=== PATIENT | female | born 1975 | race Caucasian/White ===

== ENCOUNTER 2017-11-17 11:55 | Emergency (ER) | payer BC ==
[2017-11-17] MEDS ORDERED: MORPHINE SULFATE 4 MG/ML DISP.SYRIN. IV/SQ ×2 (12:15)
[2017-11-17 12:17] LABS: URINE HCG POC HCG NEGATIVE (Negative)
[2017-11-17 12:26] LABS: ADD MAN DIFF? YES; BASO # 0.1 x10^3/uL (0.0-0.2); BASO % 1 % (0-3); EOS % 0 % (0-3); HEMATOCRIT 39.8 % (36.0-47.0); HEMOGLOBIN 13.7 g/dL (12.0-15.5); LYMPH # 2.3 x10^3/uL (1.0-4.8); LYMPH % 18 % (24-48); MEAN CORPUSCULAR HEMOGLOBIN 30 pg (25-35); MEAN CORPUSCULAR HGB CONC 34 g/dL (31-37); MEAN CORPUSCULAR VOLUME 88 fL (79-100); MONO % 15 % (0-9); NEUT # 8.4 x10^3uL (1.8-7.7); NEUT % 66 % (31-73); PLATELET COUNT 301 x10^3/uL (140-400); RED BLOOD COUNT 4.55 x10^6/uL (3.50-5.40); RED CELL DISTRIBUTION WIDTH 14.4 % (11.5-14.5); WHITE BLOOD COUNT 12.9 x10^3/uL (4.0-11.0)
[2017-11-17 12:27] LABS: BILIRUBIN,URINE NEGATIVE (NEG); CLARITY,URINE CLOUDY; COLOR,URINE YELLOW; GLUCOSE,URINE NEGATIVE (NEG); NITRITE,URINE NEGATIVE (NEG); PROTEIN,URINE 100 mg/dL (NEG-TRACE)
[2017-11-17] MEDS ORDERED: KETOROLAC 15 MG/ML VIAL. IV ×2 (12:30)
[2017-11-17 12:33] LABS: ANION GAP 9 (6-14); BLOOD UREA NITROGEN 7 mg/dL (7-20); BUN/CREATININE RATIO 9 (6-20); CALCIUM 10.4 mg/dL (8.5-10.1); CARBON DIOXIDE 26 mmol/L (21-32); CHLORIDE 102 mmol/L (98-107); CREATININE 0.8 mg/dL (0.6-1.0); GFR 79.4; GLUCOSE 115 mg/dL (70-99); POTASSIUM 3.6 mmol/L (3.5-5.1); SODIUM 137 mmol/L (136-145)
[2017-11-17 12:38] LABS: ALK PHOS 108 U/L (46-116); ALT (SGPT) 37 U/L (14-59); AST (SGOT) 19 U/L (15-37); TOTAL BILIRUBIN 0.8 mg/dL (0.2-1.0); TOTAL PROTEIN 7.9 g/dL (6.4-8.2)
[2017-11-17] MEDS: IV NORMAL SALINE 1000ML BAG 1,000 ML IV ×2 (12:38)
[2017-11-17] MEDS: PROCHLORPERAZINE 10 MG/2 ML VIAL. IV ×2 (12:39)
[2017-11-17] MEDS: KETOROLAC 30 MG/ML INJ. IV ×2 (12:40)
[2017-11-17 12:45] LABS: BACTERIA,URINE FEW /HPF (0-FEW); SQUAMOUS EPITHELIAL CELL,UR FEW /LPF; WBC,URINE >40 /HPF (0-4)
[2017-11-17 13:13] LABS: % BANDS 1 % (0-9); % LYMPHS 18 % (24-48); % MONOS 15 % (0-10); % SEGS 66 % (35-66); PLT ESTIMATE ADEQUATE (ADEQUATE)
[2017-11-17] MEDS ORDERED: cefTRIAXone SODIUM 2 GM in IV DEXTROSE 5% 100ML 100 ML IV (14:00)
[2017-11-17] MEDS ORDERED: cefTRIAXone IM 1 GM VIAL IM ×2 (14:40)
[2017-11-17] MEDS: cefTRIAXone IV Push 1 GM VIAL. IVP ×2 (14:47)
== END 2017-11-17 14:54 | disposition home or self-care (01) ==
LOC: ER 11:55
DX: N13.2 Hydronephrosis with renal and ureteral calculous obstruction (principal); N39.0 Urinary tract infection, site not specified (principal); N20.1 Calculus of ureter; Z98.890 Other specified postprocedural states; Z88.5 Allergy status to narcotic agent; Z88.1 Allergy status to other antibiotic agents; Z88.8 Allergy status to other drugs, medicaments and biological substances
CPT/HCPCS: 36415; 74176; 80053; 81001; 81025; 85007; 85025; 87086; 87186; 96365; 96375; 96376; 99285-25; J0690; J0696; J0780; J1885; J7030

== ENCOUNTER 2019-12-18 21:57 | Inpatient (IN) | payer BC ==
[~2019-12-18] VITALS: Ht 162.6 cm; Wt 136.4 kg
[~2019-12-18 21:57] MED LIST: CIPR500T PO; OXYC1TAB15 PO; PROM25TA10 PO
[2019-12-18 22:42] LABS: BILIRUBIN,URINE NEGATIVE (NEG); CLARITY,URINE CLEAR; COLOR,URINE YELLOW; NITRITE,URINE NEGATIVE (NEG); PROTEIN,URINE NEGATIVE (NEG-TRACE)
[2019-12-18 22:52] LABS: SQUAMOUS EPITHELIAL CELL,UR MANY /LPF
[2019-12-18 22:53] LABS: BACTERIA,URINE MANY /HPF (0-FEW)
--- NOTE | 2019-12-18 23:17 | PHYS DOC ---
Past Medical History Past Medical History: Kidney Stone Past Surgical History: Additional Past Surgical Histo: ULNER NERVE IN RIGHT ARM Smoking Status: Never Smoker Alcohol Use: None Drug Use: None General Adult EDM: Chief Complaint: FLANK PAIN HPI: HPI: The history was obtained from the patient. Patient is a 44-year-old female with PMH kidney stone who presents with a chief complaint of right flank pain. Patient states she had sudden onset right flank pain that occurred approximately 20 hours ago. She states she was sleeping when the pain occurred. She notes a couple of weeks ago she was valuated by her primary care physician. States labs were obtained and were grossly remarkable. She states she started on a anti- inflammatory for potential muscle strain. She notes the pain did gradually improve however it returned tonight. She has a history of kidney stone 2 years ago that did not require intervention. She does note increased urinary frequency. Denies any hematuria or dysuria. Denies nausea or vomiting. Has tolerated food today without difficulty. Denies any fevers. Denies syncope. Denies vaginal bleeding or discharge. Notes sometimes the pain involves her right upper quadrant. Has a history of gallbladder issues. Denies cough, shortness of breath, or fever. Denies any chest pain. Patient denies any urinary retention, stool incontinence, saddle anesthesia, history of IV drug use, or history of cancer. Review of Systems: Review of Systems: Constitutional: Denies fever or chills. [] Eyes: Denies change in visual acuity. [] HENT: Denies nasal congestion or sore throat. [] Respiratory: Denies cough or shortness of breath. [] Cardiovascular: Denies chest pain or edema. [] GI: Denies abdominal pain, nausea, vomiting, bloody stools or diarrhea. [] : Denies dysuria. [] Musculoskeletal: Positive for flank pain Integument: Denies rash. [] Neurologic: Denies headache, focal weakness or sensory changes. [] Endocrine: Denies polyuria or polydipsia. [] Lymphatic: Denies swollen glands. [] Psychiatric: Denies depression or anxiety. [] Heart Score: Risk Factors: Risk Factors: DM, Current or recent (<one month) smoker, HTN, HLP, family history of CAD, obesity. Risk Scores: Score 0 - 3: 2.5% MACE over next 6 weeks - Discharge Home Score 4 - 6: 20.3% MACE over next 6 weeks - Admit for Clinical Observation Score 7 - 10: 72.7% MACE over next 6 weeks - Early Invasive Strategies Allergies: Allergies: Allergies Coded Allergies Type Severity Reaction Last Updated Verified I S O L A T I O N *CONTACT* Allergy Unknown 11/20/17 Yes benzonatate Allergy Unknown 11/17/17 Yes clarithromycin Allergy Unknown 11/17/17 Yes erythromycin base Allergy Unknown 11/17/17 Yes ondansetron Allergy Unknown 11/17/17 Yes codeine Adverse Reaction Intermediate FEELS LIKE SHE IS ON SPEED 11/17/17 Yes Physical Exam: PE: Constitutional: Well developed, well nourished, no acute distress, non-toxic appearance. [] HENT: Normocephalic, atraumatic, bilateral external ears normal, oropharynx moist, no oral exudates, nose normal. [] Eyes: PERRLA, EOMI, conjunctiva normal, no discharge. [] Neck: Normal range of motion, no tenderness, supple, no stridor. [] Cardiovascular:Heart rate regular rhythm, no murmur [] Lungs & Thorax: Bilateral breath sounds clear to auscultation [] Abdomen: Mild right CVA tenderness. No involuntary guarding or rigidity noted. No acute peritonitis on abdominal exam. Skin: Warm, dry, no erythema, no rash. [] Back: No tenderness, no CVA tenderness. [] Extremities: No tenderness, no cyanosis, no clubbing, ROM intact, no edema. [] Neurologic: Alert and oriented X 3, normal motor function, normal sensory function, no focal deficits noted. [] Psychologic: Affect normal, judgement normal, mood normal. [] Current Patient Data: Labs: Laboratory Tests Test 12/18/19 22:20 12/18/19 22:35 Urine Collection Type Unknown Urine Color Yellow Urine Clarity Clear Urine pH 6.0 (<5.0-8.0) Urine Specific [place] 1.025 (1.000-1.030) Urine Protein Negative mg/dL (NEG-TRACE) Urine Glucose (UA) Negative mg/dL (NEG) Urine Ketones (Stick) Negative mg/dL (NEG) Urine Blood Negative (NEG) Urine Nitrite Negative (NEG) Urine Bilirubin Negative (NEG) Urine Urobilinogen Dipstick 1.0 mg/dL (0.2 mg/dL) Urine Leukocyte Esterase Negative (NEG) Urine RBC 3-5 /HPF (0-2) Urine WBC 1-4 /HPF (0-4) Urine Squamous Epithelial Cells Many /LPF Urine Bacteria Many /HPF (0-FEW) Urine Mucus Marked /LPF POC Urine HCG, Qualitative Hcg negative (Negative) Vital Signs: Vital Signs Date Time Temp Pulse Resp B/P (MAP) Pulse Ox O2 Delivery O2 Flow Rate FiO2 12/18/19 22:50 98.0 89 18 139/87 (104) 95 Room Air 98.0 EKG: EKG: [] Radiology/Procedures: Radiology/Procedures: [] [address] [place], [place] [id number] IMAGING REPORT Signed PATIENT: JEAN CARLOS VAUGHAN ACCOUNT: [id number] : 1975 LOCATION: ER AGE: 44 SEX: F EXAM STATUS: REG ER ORD. PHYSICIAN: DEBORAH MORFIN DO REASON: R flank pain. eval for kidney stone PROCEDURE: CT ABDOMEN PELVIS WO CONTRAST Study: CT abdomen/pelvis without intravenous contrast Indication: Right flank pain. Comparison: 11/17/2017 Technique: Helical CT imaging performed of the abdomen and pelvis without the use of intravenous contrast. Sagittal and coronal reformats were obtained. One or more of the following individualized dose reduction techniques were utilized for this examination: 1. Automated exposure control 2. Adjustment of the mA and/or kV according to patient size 3. Use of iterative reconstruction technique. Findings: Inherently limited evaluation without intravenous contrast. Chest: Unchanged nodular focus at the subpleural right lower lobe on image 1 series 2. Stability over time is compatible with a benign process. No dedicated follow-up is needed. Liver: Marked hepatic steatosis with some areas of relative fatty sparing. Gallbladder/Biliary Tree: Within normal limits. Pancreas: Unremarkable. Spleen: Within normal limits for size. Adrenal Glands: Unchanged. Kidneys/Ureters/Bladder: No collecting system dilatation on either side. No stone is seen. Reproductive Organs: Within the broad range of normal for patient age to include a left ovarian cystic focus, image 182 series 2, measuring up to 3.3 cm. Colon: Unremarkable. Appendix: The distal portion of the appendix is at the upper limits of normal for transverse dimension, image 197 series 2, but there are no findings to suggest acute appendicitis and gas is seen within the proximal appendiceal lumen. Small Bowel: Unremarkable. Stomach: Unremarkable. Vasculature: Unremarkable. Lymph Nodes: Unchanged minimally prominent precaval lymph node. No suspicious lymph nodes based on size or interval change. Peritoneum and Body Wall: No free fluid or gas. Bones: No acute or aggressive osseous process. Lower lumbar facet degeneration. Miscellaneous: None. Impression: 1. No acute abnormality seen throughout the abdomen or pelvis. Namely, no nephrolithiasis or collecting system dilatation. 2. Hepatic steatosis and additional chronic findings as above. Electronically signed by: PRADEEP CASAREZ MD (12/19/2019 12:33 AM) [id number] DICTATED and SIGNED BY: PRADEEP CASAREZ MD DATE: 12/19/19 0033 Course & Med Decision Making: Course & Med Decision Making Pertinent Labs and Imaging studies reviewed. (See chart for details) Patient is uncomfortable appearing 44-year-old female presents with chief complaint of right flank pain. Initial vital signs grossly unremarkable. CBC does show significant leukocytosis of approximately 25,000. Lactate normal. CT imaging grossly remarkable. Of note radiology did mention the distal tip of the appendix is at the upper limits of normal. However no secondary findings of acute appendicitis. Repeat examination she still has some discomfort. At this time the exact cause of her leukocytosis is unexplained. Urinalysis did show minimal signs of infection. She will be treated with Rocephin. Blood cultures and urine cultures are pending. I do feel she would benefit from observation for serial abdominal exams given her abnormal leukocytosis. Patient is agreeable to this. She has remained stable in the emergency department. Her repeat abdominal exam while in the emergency department reveals no rigidity or peritonitis. Dragon Disclaimer: Dragon Disclaimer: This electronic medical record was generated, in whole or in part, using a voice recognition dictation system. Departure Departure Impression: Primary Impression: Intractable abdominal pain Additional Impressions: Leukocytosis Qualified Codes: D72.829 - Elevated white blood cell count, unspecified Bacteria in urine Disposition: ADMITTED INPATIENT Condition: STABLE Referrals: DELIO BABCOCK (PCP) Justicifation of Admission Dx: Justifications for Admission: Justification of Admission Dx: Yes Comments: intractable abdominal pain ,leukocytosis, bacturia DEBORAH MORFIN DO Dec 18, 2019 23:17
[2019-12-18] MEDS ORDERED: MORPHINE SULFATE 4 MG/ML VIAL. IV ONE (23:45)
[2019-12-18] MEDS ORDERED: METOCLOPRAMIDE HCL 10 MG/2 ML VIAL. IVP ONE (23:45)
[2019-12-18 23:53] LABS: BASO # 0.1 x10^3/uL (0.0-0.2); BASO % 1 % (0-3); EOS % 0 % (0-3); HEMATOCRIT 40.5 % (36.0-47.0); HEMOGLOBIN 13.6 g/dL (12.0-15.5); LYMPH # 2.7 x10^3/uL (1.0-4.8); LYMPH % 11 % (24-48); MEAN CORPUSCULAR HEMOGLOBIN 30 pg (25-35); MEAN CORPUSCULAR HGB CONC 34 g/dL (31-37); MEAN CORPUSCULAR VOLUME 88 fL (79-100); MONO % 16 % (0-9); NEUT # 18.6 x10^3/uL (1.8-7.7); NEUT % 73 % (31-73); PLATELET COUNT 164 x10^3/uL (140-400); RED BLOOD COUNT 4.62 x10^6/uL (3.50-5.40); RED CELL DISTRIBUTION WIDTH 14.4 % (11.5-14.5); WHITE BLOOD COUNT 25.4 x10^3/uL (4.0-11.0)
[2019-12-19 00:07] LABS: CALCIUM 10.3 mg/dL (8.5-10.1); CREATININE 0.7 mg/dL (0.6-1.0); GFR 91.8; POTASSIUM 3.6 mmol/L (3.5-5.1)
[2019-12-19 00:09] LABS: ALBUMIN 4.1 g/dL (3.4-5.0); ALBUMIN/GLOBULIN RATIO 1.2 (1.0-1.7); TOTAL BILIRUBIN 0.7 mg/dL (0.2-1.0); TOTAL PROTEIN 7.6 g/dL (6.4-8.2)
--- NOTE | 2019-12-19 00:35 | RAD ---
Study: CT abdomen/pelvis without intravenous contrast Indication: Right flank pain. Comparison: 11/17/2017 Technique: Helical CT imaging performed of the abdomen and pelvis without the use of intravenous contrast. Sagittal and coronal reformats were obtained. One or more of the following individualized dose reduction techniques were utilized for this examination: 1. Automated exposure control 2. Adjustment of the mA and/or kV according to patient size 3. Use of iterative reconstruction technique. Findings: Inherently limited evaluation without intravenous contrast. Chest: Unchanged nodular focus at the subpleural right lower lobe on image 1 series 2. Stability over time is compatible with a benign process. No dedicated follow-up is needed. Liver: Marked hepatic steatosis with some areas of relative fatty sparing. Gallbladder/Biliary Tree: Within normal limits. Pancreas: Unremarkable. Spleen: Within normal limits for size. Adrenal Glands: Unchanged. Kidneys/Ureters/Bladder: No collecting system dilatation on either side. No stone is seen. Reproductive Organs: Within the broad range of normal for patient age to include a left ovarian cystic focus, image 182 series 2, measuring up to 3.3 cm. Colon: Unremarkable. Appendix: The distal portion of the appendix is at the upper limits of normal for transverse dimension, image 197 series 2, but there are no findings to suggest acute appendicitis and gas is seen within the proximal appendiceal lumen. Small Bowel: Unremarkable. Stomach: Unremarkable. Vasculature: Unremarkable. Lymph Nodes: Unchanged minimally prominent precaval lymph node. No suspicious lymph nodes based on size or interval change. Peritoneum and Body Wall: No free fluid or gas. Bones: No acute or aggressive osseous process. Lower lumbar facet degeneration. Miscellaneous: None. Impression: 1. No acute abnormality seen throughout the abdomen or pelvis. Namely, no nephrolithiasis or collecting system dilatation. 2. Hepatic steatosis and additional chronic findings as above. Electronically signed by: PRADEEP CASAREZ MD (12/19/2019 12:33 AM) [id number]
[2019-12-19] MEDS ORDERED: IV RINGERS,LACTATED 1000ML 1,000 ML IV ONE (01:00)
[2019-12-19] MEDS ORDERED: cefTRIAXone IV Push 1 GM VIAL. IVP ONE (02:30)
[2019-12-19 05:49] LABS: % BANDS 21 % (0-9); % EOS 1 % (0-5); % LYMPHS 12 % (24-48); % MONOS 17 % (0-10); % SEGS 49 % (35-66)
[2019-12-19 05:50] LABS: PLT ESTIMATE ADEQUATE (ADEQUATE)
[2019-12-19] MEDS: IV RINGERS,LACTATED 1000ML 1,000 ML IV SCH ×5 (08:40→22:01)
[2019-12-19] MEDS: MORPHINE SULFATE 4 MG/ML VIAL. IV PRN ×5 (08:52→21:59)
--- NOTE | 2019-12-19 10:56 | PDOC2 ---
CONSULT Date of Consult Date of Consult DATE: 12/19/19 TIME: 10:53 History of Present Illness Reason for Visit: The patient is a 44-year-old female who reported to the emergency department with right flank and back pain with some radiation to the abdomen. This started yesterday and is described as stabbing in nature. She had a similar episode of this a month ago without a clear etiology. She denies any nausea or vomiting and the pain has remained persistent. Past Medical History Past Medical History Asthma, allergies, morbid obesity Past Surgical History Past Surgical History x2, ulnar nerve surgery Social History No ALCOHOL: rare Current Problem List Problem List Problems Medical Problems: (1) Bacteria in urine Status: Acute (2) Intractable abdominal pain Status: Acute (3) Leukocytosis Status: Acute Current Medications Current Medications Current Medications Metoclopramide HCl (Reglan Vial) 10 mg 1X ONCE IVP Last administered on 12/18/19at 23:51; Start 12/18/19 at 23:45; Stop 12/18/19 at 23:46; Status DC Morphine Sulfate (Morphine Sulfate) 4 mg 1X ONCE IV Last administered on 12/18/19at 23:51; Start 12/18/19 at 23:45; Stop 12/18/19 at 23:46; Status DC Ringer's Solution 1,000 ml @ 1,000 mls/hr 1X ONCE IV Last administered on 12/19/19at 01:46; Start 12/19/19 at 01:00; Stop 12/19/19 at 01:59; Status DC Ringer's Solution 1,000 ml @ 150 mls/hr Q6H40M IV Last administered on 12/19/19at 08:47; Start 12/19/19 at 02:00; Stop 12/20/19 at 01:59 Ceftriaxone Sodium (Rocephin) 1 gm 1X ONCE IVP Last administered on 12/19/19at 03:05; Start 12/19/19 at 02:30; Stop 12/19/19 at 02:31; Status DC Morphine Sulfate (Morphine Sulfate) 4 mg PRN Q2HR PRN IV SEVERE PAIN 7-10 Last administered on 12/19/19at 08:52; Start 12/19/19 at 02:15; Stop 12/20/19 at 02:14 Metoclopramide HCl (Reglan Vial) 10 mg TID PRN PRN IVP NAUSEA/VOMITING; Start 12/19/19 at 02:15 Active Scripts Active Percocet 5-325 Mg Tablet (Oxycodone/Acetaminophen) 1 Each Tablet 1-2 Each PO Q6HRS PRN pain Promethazine Hcl 25 Mg Tablet 1 Tab PO PRN Q6HRS PRN Ciprofloxacin Hcl 500 Mg Tablet 1 Tab PO BID Allergies Allergies: Coded Allergies: I S O L A T I O N *CONTACT* (Verified Allergy, Unknown, 11/20/17) ESBL benzonatate (Verified Allergy, Unknown, 11/17/17) clarithromycin (Verified Allergy, Unknown, 11/17/17) erythromycin base (Verified Allergy, Unknown, 11/17/17) ondansetron (Verified Allergy, Unknown, 11/17/17) codeine (Verified Adverse Reaction, Intermediate, FEELS LIKE SHE IS ON SPEED, 11/17/17) ROS General: No: Chills, Night Sweats, Fatigue, Malaise, Appetite, Other PSYCHOLOGICAL ROS: No: Anxiety, Behavioral Disorder, Concentration difficultie, Decreased libido, Depression, Disorientation, Hallucinations, Hostility, Irritablity, Memory difficulties, Mood Swings, Obsessive thoughts, Physical abuse, Sexual abuse, Sleep disturbances, Suicidal ideation, Other Eyes: No Blurry vision, No Decreased vision, No Double vision, No Dry eyes, No Excessive tearing, No Eye Pain, No Itchy Eyes, No Loss of vision, No Photophobia, No Scotomata, No Uses contacts, No Uses glasses, No Other HEENT: No: Heacaches, Visual Changes, Hearing change, Nasal congestion, Nasal discharge, Oral lesions, Sinus pain, Sore Throat, Epistaxis, Sneezing, Snoring, Tinnitus, Vertigo, Vocal changes, Other ALLERGY AND IMMUNOLOGY: No: Hives, Insect Bite Sensitivity, Itchy/Watery Eyes, Nasal Congestion, Post Nasal Drip, Seasonal Allergies, Other ENDOCRINE: No: Breast Changes, Galactorrhea, Hair Pattern Changes, Hot Flashes, Malaise/lethargy, Mood Swings, Palpitations, Polydipsia/polyuria, Skin Changes, Temperature Intolerance, Unexpected Weight Changes, Other Respiratory: No: Cough, Hemoptysis, Orthopnea, Pleuritic Pain, Shortness of breath, SOB with excertion, Sputum Changes, Stridor, Tachypnea, Wheezing, Other Cardiovascular: No Chest Pain, No Palpitations, No Orthopnea, No Paroxysmal Noc. Dyspnea, No Edema, No Lt Headedness, No Other Genitourinary: No Dysuria, No Frequency, No Incontinence, No Hematuria, No Retention, No Discharge, No Urgency, No Pain, No Flank Pain, No Other, No , No , No , No , No , No , No Musculoskeletal: No Gait Disturbance, No Joint Pain, No Joint Stiffness, No Joint Swelling, No Muscle Pain, No Muscular Weakness, No Pain In:, No Swelling In:, No Other Neurological: No Behavorial Changes, No Bowel/Bladder ControlChng, No Confusion, No Dizziness, No Gait Disturbance, No Headaches, No Impaired Coord/balance, No Memory Loss, No Numbness/Tingling, No Seizures, No Speech Problems, No Tremors, No Visual Changes, No Weakness, No Other Skin: No Dry Skin, No Eczema, No Hair Changes, No Lumps, No Mole Changes, No Mottling, No Nail Changes, No Pruritus, No Rash, No Skin Lesion Changes, No Other, No Acne Physical Exam General: Alert, Oriented X3, Cooperative HEENT: Atraumatic Lungs: Clear to auscultation Abdomen: Soft (morbidly obese, tenderness in the right lower quadrant without guarding) Extremities: No clubbing, No cyanosis Neuro: Normal speech Psych/Mental Status: Mental status NL Vitals VITALS Vital Signs Date Time Temp Pulse Resp B/P (MAP) Pulse Ox O2 Delivery O2 Flow Rate FiO2 12/19/19 09:33 95 Room Air 12/19/19 06:09 78 12 150/73 (98) 12/18/19 22:50 98.0 98.0 Labs Labs Laboratory Tests Test 12/18/19 22:20 12/18/19 22:35 12/18/19 23:40 12/19/19 01:20 Urine Collection Type Unknown Urine Color Yellow Urine Clarity Clear Urine pH 6.0 (<5.0-8.0) Urine Specific [place] 1.025 (1.000-1.030) Urine Protein Negative mg/dL (NEG-TRACE) Urine Glucose (UA) Negative mg/dL (NEG) Urine Ketones (Stick) Negative mg/dL (NEG) Urine Blood Negative (NEG) Urine Nitrite Negative (NEG) Urine Bilirubin Negative (NEG) Urine Urobilinogen Dipstick 1.0 mg/dL (0.2 mg/dL) Urine Leukocyte Esterase Negative (NEG) Urine RBC 3-5 /HPF (0-2) Urine WBC 1-4 /HPF (0-4) Urine Squamous Epithelial Cells Many /LPF Urine Bacteria Many /HPF (0-FEW) Urine Mucus Marked /LPF Bedside Urine HCG, Qualitative Hcg negative (Negative) White Blood Count 25.4 x10^3/uL (4.0-11.0) Red Blood Count 4.62 x10^6/uL (3.50-5.40) Hemoglobin 13.6 g/dL (12.0-15.5) Hematocrit 40.5 % (36.0-47.0) Mean Corpuscular Volume 88 fL (79-100) Mean Corpuscular Hemoglobin 30 pg (25-35) Mean Corpuscular Hemoglobin Concent 34 g/dL (31-37) Red Cell Distribution Width 14.4 % (11.5-14.5) Platelet Count 164 x10^3/uL (140-400) Neutrophils (%) (Auto) 73 % (31-73) Lymphocytes (%) (Auto) 11 % (24-48) Monocytes (%) (Auto) 16 % (0-9) Eosinophils (%) (Auto) 0 % (0-3) Basophils (%) (Auto) 1 % (0-3) Neutrophils # (Auto) 18.6 x10^3/uL (1.8-7.7) Lymphocytes # (Auto) 2.7 x10^3/uL (1.0-4.8) Monocytes # (Auto) 4.0 x10^3/uL (0.0-1.1) Eosinophils # (Auto) 0.0 x10^3/uL (0.0-0.7) Basophils # (Auto) 0.1 x10^3/uL (0.0-0.2) Segmented Neutrophils % 49 % (35-66) Band Neutrophils % 21 % (0-9) Lymphocytes % 12 % (24-48) Monocytes % 17 % (0-10) Eosinophils % 1 % (0-5) Platelet Estimate Adequate (ADEQUATE) Sodium Level 137 mmol/L (136-145) Potassium Level 3.6 mmol/L (3.5-5.1) Chloride Level 104 mmol/L (98-107) Carbon Dioxide Level 25 mmol/L (21-32) Anion Gap 8 (6-14) Blood Urea Nitrogen 9 mg/dL (7-20) Creatinine 0.7 mg/dL (0.6-1.0) Estimated GFR (Cockcroft-Gault) 91.8 BUN/Creatinine Ratio 13 (6-20) Glucose Level 101 mg/dL (70-99) Calcium Level 10.3 mg/dL (8.5-10.1) Total Bilirubin 0.7 mg/dL (0.2-1.0) Aspartate Amino Transf (AST/SGOT) 45 U/L (15-37) Alanine Aminotransferase (ALT/SGPT) 42 U/L (14-59) Alkaline Phosphatase 106 U/L (46-116) Total Protein 7.6 g/dL (6.4-8.2) Albumin 4.1 g/dL (3.4-5.0) Albumin/Globulin Ratio 1.2 (1.0-1.7) Lipase 141 U/L (73-393) Lactic Acid Level 0.9 mmol/L (0.4-2.0) Laboratory Tests Test 12/18/19 22:20 12/18/19 22:35 12/18/19 23:40 12/19/19 01:20 Urine Collection Type Unknown Urine Color Yellow Urine Clarity Clear Urine pH 6.0 (<5.0-8.0) Urine Specific [place] 1.025 (1.000-1.030) Urine Protein Negative mg/dL (NEG-TRACE) Urine Glucose (UA) Negative mg/dL (NEG) Urine Ketones (Stick) Negative mg/dL (NEG) Urine Blood Negative (NEG) Urine Nitrite Negative (NEG) Urine Bilirubin Negative (NEG) Urine Urobilinogen Dipstick 1.0 mg/dL (0.2 mg/dL) Urine Leukocyte Esterase Negative (NEG) Urine RBC 3-5 /HPF (0-2) Urine WBC 1-4 /HPF (0-4) Urine Squamous Epithelial Cells Many /LPF Urine Bacteria Many /HPF (0-FEW) Urine Mucus Marked /LPF Bedside Urine HCG, Qualitative Hcg negative (Negative) White Blood Count 25.4 x10^3/uL (4.0-11.0) Red Blood Count 4.62 x10^6/uL (3.50-5.40) Hemoglobin 13.6 g/dL (12.0-15.5) Hematocrit 40.5 % (36.0-47.0) Mean Corpuscular Volume 88 fL (79-100) Mean Corpuscular Hemoglobin 30 pg (25-35) Mean Corpuscular Hemoglobin Concent 34 g/dL (31-37) Red Cell Distribution Width 14.4 % (11.5-14.5) Platelet Count 164 x10^3/uL (140-400) Neutrophils (%) (Auto) 73 % (31-73) Lymphocytes (%) (Auto) 11 % (24-48) Monocytes (%) (Auto) 16 % (0-9) Eosinophils (%) (Auto) 0 % (0-3) Basophils (%) (Auto) 1 % (0-3) Neutrophils # (Auto) 18.6 x10^3/uL (1.8-7.7) Lymphocytes # (Auto) 2.7 x10^3/uL (1.0-4.8) Monocytes # (Auto) 4.0 x10^3/uL (0.0-1.1) Eosinophils # (Auto) 0.0 x10^3/uL (0.0-0.7) Basophils # (Auto) 0.1 x10^3/uL (0.0-0.2) Segmented Neutrophils % 49 % (35-66) Band Neutrophils % 21 % (0-9) Lymphocytes % 12 % (24-48) Monocytes % 17 % (0-10) Eosinophils % 1 % (0-5) Platelet Estimate Adequate (ADEQUATE) Sodium Level 137 mmol/L (136-145) Potassium Level 3.6 mmol/L (3.5-5.1) Chloride Level 104 mmol/L (98-107) Carbon Dioxide Level 25 mmol/L (21-32) Anion Gap 8 (6-14) Blood Urea Nitrogen 9 mg/dL (7-20) Creatinine 0.7 mg/dL (0.6-1.0) Estimated GFR (Cockcroft-Gault) 91.8 BUN/Creatinine Ratio 13 (6-20) Glucose Level 101 mg/dL (70-99) Calcium Level 10.3 mg/dL (8.5-10.1) Total Bilirubin 0.7 mg/dL (0.2-1.0) Aspartate Amino Transf (AST/SGOT) 45 U/L (15-37) Alanine Aminotransferase (ALT/SGPT) 42 U/L (14-59) Alkaline Phosphatase 106 U/L (46-116) Total Protein 7.6 g/dL (6.4-8.2) Albumin 4.1 g/dL (3.4-5.0) Albumin/Globulin Ratio 1.2 (1.0-1.7) Lipase 141 U/L (73-393) Lactic Acid Level 0.9 mmol/L (0.4-2.0) Images Images CT abdomen/pelvis Impression: 1. No acute abnormality seen throughout the abdomen or pelvis. Namely, no nephrolithiasis or collecting system dilatation. 2. Hepatic steatosis and additional chronic findings as above. Assessment/Plan Assessment/Plan RLQ flank/back/abdominal pain, leukocytosis, etiology unclear. I have reviewed her CT and appendicitis would be unlikely. No other inflammatory process identified. Plan for serial exams, labs, pain control; could consider GI consult if pain persists. YASHIRA MERCHANT MD Dec 19, 2019 10:56
[2019-12-19 11:00] VITALS: BP 133/68
--- NOTE | 2019-12-19 12:49 | PDOC1 ---
History and Physical Date of Service: DOS: DATE: 12/19/19 TIME: 12:37 Chief Complaint: Chief Complain: Abdominal pain History of Present Illness: HPI: Patient is a 44-year-old female with past medical history of kidney stone 1 year ago and who has had 8 miscarriages and 2 and D&Cs in the past who comes with complaints of right flank pain. She has been dealing with this for about a month but it has worsened the last couple of days. She describes the pain as sharp in nature that starts in her lower back and will radiate straight to her right lower quadrant of her abdomen. She denies nausea vomiting or changes in her bowel habits from this pain. She was started on muscle relaxants for possible concern of muscle strain. However, she does not state that this helps her pain. She has had one episode of a kidney stone that was passed in the past 1 year ago. However, the stone was never analyzed. Patient denies any hematuria, fevers, syncope, chest pain, vaginal bleeding or discharge, or recent risky sexual behavior. Past Medical/Surgical History: PMH/PSH: Past Medical History: Kidney Stone Past Surgical History: , 8 misarriages and 2 DNC, ULNER NERVE IN RIGHT ARM Allergies: Allergies: Coded Allergies: I S O L A T I O N *CONTACT* (Verified Allergy, Unknown, 11/20/17) ESBL benzonatate (Verified Allergy, Unknown, 11/17/17) clarithromycin (Verified Allergy, Unknown, 11/17/17) erythromycin base (Verified Allergy, Unknown, 11/17/17) ondansetron (Verified Allergy, Unknown, 11/17/17) codeine (Verified Adverse Reaction, Intermediate, FEELS LIKE SHE IS ON SPEED, 11/17/17) Family History: Family History: Reviewed and none reported. No family history of kidney stones. Social History: Social History: Denies alcohol, drug or tobacco abuse Current Medications: Current Medications Current Medications Metoclopramide HCl (Reglan Vial) 10 mg 1X ONCE IVP Last administered on 12/18/19at 23:51; Start 12/18/19 at 23:45; Stop 12/18/19 at 23:46; Status DC Morphine Sulfate (Morphine Sulfate) 4 mg 1X ONCE IV Last administered on at 23:51; Start 12/18/19 at 23:45; Stop 12/18/19 at 23:46; Status DC Ringer's Solution 1,000 ml @ 1,000 mls/hr 1X ONCE IV Last administered on 12/19/19at 01:46; Start 12/19/19 at 01:00; Stop 12/19/19 at 01:59; Status DC Ringer's Solution 1,000 ml @ 150 mls/hr Q6H40M IV Last administered on 12/19/19at 08:40; Start 12/19/19 at 02:00; Stop 12/20/19 at 01:59 Ceftriaxone Sodium (Rocephin) 1 gm 1X ONCE IVP Last administered on 12/19/19at 03:05; Start 12/19/19 at 02:30; Stop 12/19/19 at 02:31; Status DC Morphine Sulfate (Morphine Sulfate) 4 mg PRN Q2HR PRN IV SEVERE PAIN 7-10 Last administered on 12/19/19at 12:11; Start 12/19/19 at 02:15; Stop 12/20/19 at 02:14 Metoclopramide HCl (Reglan Vial) 10 mg TID PRN PRN IVP NAUSEA/VOMITING; Start 12/19/19 at 02:15 Active Scripts Active Percocet 5-325 Mg Tablet (Oxycodone/Acetaminophen) 1 Each Tablet 1-2 Each PO Q6HRS PRN pain Promethazine Hcl 25 Mg Tablet 1 Tab PO PRN Q6HRS PRN Ciprofloxacin Hcl 500 Mg Tablet 1 Tab PO BID ROS: Review of Systems Review of System REVIEW OF SYSTEMS: GENERAL: Denies weakness SKIN: No bruising, hair changes or rashes. EYES: No blurred, double or loss of vision. NOSE AND THROAT: No history of nosebleeds, hoarseness or sore throat. HEART: No history of palpitations, chest pain or shortness of breath on exertion. LUNGS: Denies cough, hemoptysis, wheezing or shortness of breath. GASTROINTESTINAL: Denies changes in appetite, nausea, vomiting, diarrhea or constipation. GENITOURINARY: No history of frequency, urgency, hesitancy or nocturia. NEUROLOGIC: Denies history of numbness, tingling, or tremor. PSYCHIATRIC: No history of panic, anxiety or depression. ENDOCRINE: No history of heat or cold intolerance, polyuria or polydipsia. EXTREMITIES: Denies joint pain, pain on walking or stiffness. Physical Exam: Vital Signs: Vital Signs Date Time Temp Pulse Resp B/P (MAP) Pulse Ox O2 Delivery O2 Flow Rate FiO2 12/19/19 12:11 96 12/19/19 11:00 97.7 77 15 133/68 (89) Room Air 97.7 Physcial Exam: GEN: No apparent distress. Alert and oriented HEENT: Normal cephalic, atraumatic, external auditory canals are patent EYES: Extraocular muscles are intact, pupil are equally round and reactive to light and accommodation MUSCULOSKELETAL: Well developed , well nourished, good range of motion ENDOCRINE: No thyromegaly was palpated LYMPHATICS: No cervical chain or axillary nodes were noted HEMATOPOIETIC: No bruising NECK: Supple, no JVD, no thyromegaly was noted LUNGS: Clear to auscultation in all lung garcia without rhonchi or wheezing HEART: RRR, S!, S2 present. Peripheral pulses intact, no obvious murmurs noted ABDOMEN: Soft, nontender. Positive bowel sounds, no organomegaly, normal bowel sounds EXTREMITIES: Without clubbing, cyanosis, or edema. Pedal pulses intact. Negative Homans sign NEUROLOGIC: Normal speech and tone. A&O x 3, moves all extremities, no obvious focal deficits PSYCHIATRIC: Normal affect, normal mood. Stable SKIN: No ulcerations or rashes, good skin turgor, no jaundice VASCULAR: Good capillary refill, neurovascular bundle appears to be intact Labs: Labs: Laboratory Tests Test 12/18/19 22:20 12/18/19 22:35 12/18/19 23:40 12/19/19 01:20 Urine Collection Type Unknown Urine Color Yellow Urine Clarity Clear Urine pH 6.0 (<5.0-8.0) Urine Specific [place] 1.025 (1.000-1.030) Urine Protein Negative mg/dL (NEG-TRACE) Urine Glucose (UA) Negative mg/dL (NEG) Urine Ketones (Stick) Negative mg/dL (NEG) Urine Blood Negative (NEG) Urine Nitrite Negative (NEG) Urine Bilirubin Negative (NEG) Urine Urobilinogen Dipstick 1.0 mg/dL (0.2 mg/dL) Urine Leukocyte Esterase Negative (NEG) Urine RBC 3-5 /HPF (0-2) Urine WBC 1-4 /HPF (0-4) Urine Squamous Epithelial Cells Many /LPF Urine Bacteria Many /HPF (0-FEW) Urine Mucus Marked /LPF Bedside Urine HCG, Qualitative Hcg negative (Negative) White Blood Count 25.4 x10^3/uL (4.0-11.0) Red Blood Count 4.62 x10^6/uL (3.50-5.40) Hemoglobin 13.6 g/dL (12.0-15.5) Hematocrit 40.5 % (36.0-47.0) Mean Corpuscular Volume 88 fL (79-100) Mean Corpuscular Hemoglobin 30 pg (25-35) Mean Corpuscular Hemoglobin Concent 34 g/dL (31-37) Red Cell Distribution Width 14.4 % (11.5-14.5) Platelet Count 164 x10^3/uL (140-400) Neutrophils (%) (Auto) 73 % (31-73) Lymphocytes (%) (Auto) 11 % (24-48) Monocytes (%) (Auto) 16 % (0-9) Eosinophils (%) (Auto) 0 % (0-3) Basophils (%) (Auto) 1 % (0-3) Neutrophils # (Auto) 18.6 x10^3/uL (1.8-7.7) Lymphocytes # (Auto) 2.7 x10^3/uL (1.0-4.8) Monocytes # (Auto) 4.0 x10^3/uL (0.0-1.1) Eosinophils # (Auto) 0.0 x10^3/uL (0.0-0.7) Basophils # (Auto) 0.1 x10^3/uL (0.0-0.2) Segmented Neutrophils % 49 % (35-66) Band Neutrophils % 21 % (0-9) Lymphocytes % 12 % (24-48) Monocytes % 17 % (0-10) Eosinophils % 1 % (0-5) Platelet Estimate Adequate (ADEQUATE) Sodium Level 137 mmol/L (136-145) Potassium Level 3.6 mmol/L (3.5-5.1) Chloride Level 104 mmol/L (98-107) Carbon Dioxide Level 25 mmol/L (21-32) Anion Gap 8 (6-14) Blood Urea Nitrogen 9 mg/dL (7-20) Creatinine 0.7 mg/dL (0.6-1.0) Estimated GFR (Cockcroft-Gault) 91.8 BUN/Creatinine Ratio 13 (6-20) Glucose Level 101 mg/dL (70-99) Calcium Level 10.3 mg/dL (8.5-10.1) Total Bilirubin 0.7 mg/dL (0.2-1.0) Aspartate Amino Transf (AST/SGOT) 45 U/L (15-37) Alanine Aminotransferase (ALT/SGPT) 42 U/L (14-59) Alkaline Phosphatase 106 U/L (46-116) Total Protein 7.6 g/dL (6.4-8.2) Albumin 4.1 g/dL (3.4-5.0) Albumin/Globulin Ratio 1.2 (1.0-1.7) Lipase 141 U/L (73-393) Lactic Acid Level 0.9 mmol/L (0.4-2.0) Laboratory Tests Test 12/18/19 22:20 12/18/19 22:35 12/18/19 23:40 12/19/19 01:20 Urine Collection Type Unknown Urine Color Yellow Urine Clarity Clear Urine pH 6.0 (<5.0-8.0) Urine Specific [place] 1.025 (1.000-1.030) Urine Protein Negative mg/dL (NEG-TRACE) Urine Glucose (UA) Negative mg/dL (NEG) Urine Ketones (Stick) Negative mg/dL (NEG) Urine Blood Negative (NEG) Urine Nitrite Negative (NEG) Urine Bilirubin Negative (NEG) Urine Urobilinogen Dipstick 1.0 mg/dL (0.2 mg/dL) Urine Leukocyte Esterase Negative (NEG) Urine RBC 3-5 /HPF (0-2) Urine WBC 1-4 /HPF (0-4) Urine Squamous Epithelial Cells Many /LPF Urine Bacteria Many /HPF (0-FEW) Urine Mucus Marked /LPF Bedside Urine HCG, Qualitative Hcg negative (Negative) White Blood Count 25.4 x10^3/uL (4.0-11.0) Red Blood Count 4.62 x10^6/uL (3.50-5.40) Hemoglobin 13.6 g/dL (12.0-15.5) Hematocrit 40.5 % (36.0-47.0) Mean Corpuscular Volume 88 fL (79-100) Mean Corpuscular Hemoglobin 30 pg (25-35) Mean Corpuscular Hemoglobin Concent 34 g/dL (31-37) Red Cell Distribution Width 14.4 % (11.5-14.5) Platelet Count 164 x10^3/uL (140-400) Neutrophils (%) (Auto) 73 % (31-73) Lymphocytes (%) (Auto) 11 % (24-48) Monocytes (%) (Auto) 16 % (0-9) Eosinophils (%) (Auto) 0 % (0-3) Basophils (%) (Auto) 1 % (0-3) Neutrophils # (Auto) 18.6 x10^3/uL (1.8-7.7) Lymphocytes # (Auto) 2.7 x10^3/uL (1.0-4.8) Monocytes # (Auto) 4.0 x10^3/uL (0.0-1.1) Eosinophils # (Auto) 0.0 x10^3/uL (0.0-0.7) Basophils # (Auto) 0.1 x10^3/uL (0.0-0.2) Segmented Neutrophils % 49 % (35-66) Band Neutrophils % 21 % (0-9) Lymphocytes % 12 % (24-48) Monocytes % 17 % (0-10) Eosinophils % 1 % (0-5) Platelet Estimate Adequate (ADEQUATE) Sodium Level 137 mmol/L (136-145) Potassium Level 3.6 mmol/L (3.5-5.1) Chloride Level 104 mmol/L (98-107) Carbon Dioxide Level 25 mmol/L (21-32) Anion Gap 8 (6-14) Blood Urea Nitrogen 9 mg/dL (7-20) Creatinine 0.7 mg/dL (0.6-1.0) Estimated GFR (Cockcroft-Gault) 91.8 BUN/Creatinine Ratio 13 (6-20) Glucose Level 101 mg/dL (70-99) Calcium Level 10.3 mg/dL (8.5-10.1) Total Bilirubin 0.7 mg/dL (0.2-1.0) Aspartate Amino Transf (AST/SGOT) 45 U/L (15-37) Alanine Aminotransferase (ALT/SGPT) 42 U/L (14-59) Alkaline Phosphatase 106 U/L (46-116) Total Protein 7.6 g/dL (6.4-8.2) Albumin 4.1 g/dL (3.4-5.0) Albumin/Globulin Ratio 1.2 (1.0-1.7) Lipase 141 U/L (73-393) Lactic Acid Level 0.9 mmol/L (0.4-2.0) Images: Images CT ABD\pelvis Impression: 1. No acute abnormality seen throughout the abdomen or pelvis. Namely, no nephrolithiasis or collecting system dilatation. 2. Hepatic steatosis and additional chronic findings as above. Assessment/Plan Assessment/Plan Acute abdominal pain with unclear etiology, possible Sd-Bony John with past Hx of D&C and several miscarriages? Acute leukocytosis without clear infectious source Mild hypercalcemia History of kidney stones Mild elevation of AST Morbid obesity Admit to medicine for further management and pain control Appreciate surgery recommendations No surgery at this time, will obtain serial images and serial abdominal exams Continue pain control Will obtain uric acid levels, parathyroid hormone levels and continue to strain her urine for any stones. Regular diet Lovenox for DVT prophylaxis Protonix GI prophylaxis ADA diet Full code Discussed with RN and SW Disposition inpatient, surgery consult Surrogate decision maker is Justifications for Admission Other Justification MAI VEE MD Dec 19, 2019 12:49
[2019-12-19 14:36] VITALS: BP 136/64
[2019-12-19] MEDS: HYDROcodone/APAP 5/325MG 1 TAB TABLET PO PRN ×2 (15:07→19:49)
[2019-12-19 19:00] VITALS: BP 135/76
[2019-12-19] MEDS: MONTELUKAST SODIUM 10 MG TABLET. PO SCH (21:00)
[2019-12-19] MEDS: FAMOTIDINE 20 MG TABLET. PO SCH (21:00)
[2019-12-19] MEDS: METOCLOPRAMIDE HCL 10 MG/2 ML VIAL. IVP PRN (21:59)
[2019-12-19] MEDS: ALPRAZolam 0.25 MG TABLET PO PRN (22:16)
[2019-12-19 23:00] VITALS: BP 144/70
[2019-12-20] MEDS: PIPERACILLIN/TAZOBACTAM 3.375 GM in IV NORMAL SALINE 50ML 50 ML IV SCH ×4 (00:28→17:11)
[2019-12-20] MEDS: ACETAMINOPHEN 325 MG TABLET. PO PRN (00:28)
[2019-12-20] MEDS: MORPHINE SULFATE 4 MG/ML VIAL. IV PRN ×10 (00:28→21:40)
[2019-12-20 03:00] VITALS: BP 141/81
[2019-12-20 04:41] LABS: BASO # 0.1 x10^3/uL (0.0-0.2); BASO % 1 % (0-3); EOS % 0 % (0-3); HEMATOCRIT 39.4 % (36.0-47.0); HEMOGLOBIN 12.9 g/dL (12.0-15.5); LYMPH # 2.2 x10^3/uL (1.0-4.8); LYMPH % 10 % (24-48); MEAN CORPUSCULAR HEMOGLOBIN 29 pg (25-35); MEAN CORPUSCULAR HGB CONC 33 g/dL (31-37); MEAN CORPUSCULAR VOLUME 90 fL (79-100); MONO # 3.8 x10^3/uL (0.0-1.1); MONO % 17 % (0-9); NEUT # 15.7 x10^3/uL (1.8-7.7); NEUT % 72 % (31-73); PLATELET COUNT 120 x10^3/uL (140-400); RED CELL DISTRIBUTION WIDTH 14.5 % (11.5-14.5); WHITE BLOOD COUNT 21.9 x10^3/uL (4.0-11.0)
[2019-12-20 05:00] LABS: CALCIUM 9.6 mg/dL (8.5-10.1); CREATININE 0.8 mg/dL (0.6-1.0); GFR 78.7; POTASSIUM 3.7 mmol/L (3.5-5.1)
[2019-12-20] MEDS: HYDROcodone/APAP 5/325MG 1 TAB TABLET PO PRN ×3 (06:11→17:08)
[2019-12-20 07:10] VITALS: BP 126/68
[2019-12-20] MEDS ORDERED: ENOXAPARIN 40 MG/0.4 ML SYRINGE. SQ SCH (09:00)
[2019-12-20] MEDS: MELOXICAM 7.5 MG TABLET PO SCH (09:06)
[2019-12-20] MEDS: FAMOTIDINE 20 MG TABLET. PO SCH ×2 (09:06→21:39)
[2019-12-20] MEDS: LIDOCAINE (700MG/PATCH) PATCH. TD SCH (09:07)
[2019-12-20] MEDS: ALPRAZolam 0.25 MG TABLET PO PRN (09:16)
[2019-12-20 11:30] VITALS: BP 145/77
--- NOTE | 2019-12-20 12:57 | PDOC ---
PROGRESS NOTES Date of Service DATE: 12/20/19 TIME: 12:55 Subjective Subjective pt now complains of pain "all over", dry heaves, not feeling well Objective Objective Vital Signs Date Time Temp Pulse Resp B/P (MAP) Pulse Ox O2 Delivery O2 Flow Rate FiO2 12/20/19 12:24 93 Room Air 12/20/19 11:30 100.6 108 20 145/77 (99) 100.6 Intake and Output0 12/20/19 07:00 Intake Total 550 ml Balance 550 ml Intake Oral 550 ml # Voids 4 Physical Exam Abdomen: Soft (mildly tender R side, no guarding) Extremities: No clubbing, No cyanosis General: Alert (appears ill) Lungs: Clear to auscultation Neuro: Normal speech Psych/Mental Status: Other (mildly blunted affect) Assessment Assessment Problems Medical Problems: (1) Bacteria in urine Status: Acute (2) Intractable abdominal pain Status: Acute (3) Leukocytosis Status: Acute Plan Plan of Care Pt remains ill, WBC still high, having fevers, overall body pain; etiology remains unclear; original CT abdomen/pelvis was without contrast. Will repeat CT as contrasted study for better visualization. Comment Review of Relevant I have reviewed the following items ludivina (where applicable) has been applied. Labs Laboratory Tests Test 12/18/19 22:20 12/18/19 22:35 12/18/19 23:40 12/19/19 01:20 Urine Collection Type Unknown Urine Color Yellow Urine Clarity Clear Urine pH 6.0 (<5.0-8.0) Urine Specific [place] 1.025 (1.000-1.030) Urine Protein Negative mg/dL (NEG-TRACE) Urine Glucose (UA) Negative mg/dL (NEG) Urine Ketones (Stick) Negative mg/dL (NEG) Urine Blood Negative (NEG) Urine Nitrite Negative (NEG) Urine Bilirubin Negative (NEG) Urine Urobilinogen Dipstick 1.0 mg/dL (0.2 mg/dL) Urine Leukocyte Esterase Negative (NEG) Urine RBC 3-5 /HPF (0-2) Urine WBC 1-4 /HPF (0-4) Urine Squamous Epithelial Cells Many /LPF Urine Bacteria Many /HPF (0-FEW) Urine Mucus Marked /LPF Bedside Urine HCG, Qualitative Hcg negative (Negative) White Blood Count 25.4 x10^3/uL (4.0-11.0) Red Blood Count 4.62 x10^6/uL (3.50-5.40) Hemoglobin 13.6 g/dL (12.0-15.5) Hematocrit 40.5 % (36.0-47.0) Mean Corpuscular Volume 88 fL (79-100) Mean Corpuscular Hemoglobin 30 pg (25-35) Mean Corpuscular Hemoglobin Concent 34 g/dL (31-37) Red Cell Distribution Width 14.4 % (11.5-14.5) Platelet Count 164 x10^3/uL (140-400) Neutrophils (%) (Auto) 73 % (31-73) Lymphocytes (%) (Auto) 11 % (24-48) Monocytes (%) (Auto) 16 % (0-9) Eosinophils (%) (Auto) 0 % (0-3) Basophils (%) (Auto) 1 % (0-3) Neutrophils # (Auto) 18.6 x10^3/uL (1.8-7.7) Lymphocytes # (Auto) 2.7 x10^3/uL (1.0-4.8) Monocytes # (Auto) 4.0 x10^3/uL (0.0-1.1) Eosinophils # (Auto) 0.0 x10^3/uL (0.0-0.7) Basophils # (Auto) 0.1 x10^3/uL (0.0-0.2) Segmented Neutrophils % 49 % (35-66) Band Neutrophils % 21 % (0-9) Lymphocytes % 12 % (24-48) Monocytes % 17 % (0-10) Eosinophils % 1 % (0-5) Platelet Estimate Adequate (ADEQUATE) Sodium Level 137 mmol/L (136-145) Potassium Level 3.6 mmol/L (3.5-5.1) Chloride Level 104 mmol/L (98-107) Carbon Dioxide Level 25 mmol/L (21-32) Anion Gap 8 (6-14) Blood Urea Nitrogen 9 mg/dL (7-20) Creatinine 0.7 mg/dL (0.6-1.0) Estimated GFR (Cockcroft-Gault) 91.8 BUN/Creatinine Ratio 13 (6-20) Glucose Level 101 mg/dL (70-99) Calcium Level 10.3 mg/dL (8.5-10.1) Total Bilirubin 0.7 mg/dL (0.2-1.0) Aspartate Amino Transf (AST/SGOT) 45 U/L (15-37) Alanine Aminotransferase (ALT/SGPT) 42 U/L (14-59) Alkaline Phosphatase 106 U/L (46-116) Total Protein 7.6 g/dL (6.4-8.2) Albumin 4.1 g/dL (3.4-5.0) Albumin/Globulin Ratio 1.2 (1.0-1.7) Lipase 141 U/L (73-393) Lactic Acid Level 0.9 mmol/L (0.4-2.0) Test 12/19/19 15:20 12/20/19 04:00 Lactic Acid Level 1.0 mmol/L (0.4-2.0) Uric Acid 6.3 mg/dL (2.6-6.0) White Blood Count 21.9 x10^3/uL (4.0-11.0) Red Blood Count 4.40 x10^6/uL (3.50-5.40) Hemoglobin 12.9 g/dL (12.0-15.5) Hematocrit 39.4 % (36.0-47.0) Mean Corpuscular Volume 90 fL (79-100) Mean Corpuscular Hemoglobin 29 pg (25-35) Mean Corpuscular Hemoglobin Concent 33 g/dL (31-37) Red Cell Distribution Width 14.5 % (11.5-14.5) Platelet Count 120 x10^3/uL (140-400) Neutrophils (%) (Auto) 72 % (31-73) Lymphocytes (%) (Auto) 10 % (24-48) Monocytes (%) (Auto) 17 % (0-9) Eosinophils (%) (Auto) 0 % (0-3) Basophils (%) (Auto) 1 % (0-3) Neutrophils # (Auto) 15.7 x10^3/uL (1.8-7.7) Lymphocytes # (Auto) 2.2 x10^3/uL (1.0-4.8) Monocytes # (Auto) 3.8 x10^3/uL (0.0-1.1) Eosinophils # (Auto) 0.0 x10^3/uL (0.0-0.7) Basophils # (Auto) 0.1 x10^3/uL (0.0-0.2) Sodium Level 138 mmol/L (136-145) Potassium Level 3.7 mmol/L (3.5-5.1) Chloride Level 102 mmol/L (98-107) Carbon Dioxide Level 26 mmol/L (21-32) Anion Gap 10 (6-14) Blood Urea Nitrogen 7 mg/dL (7-20) Creatinine 0.8 mg/dL (0.6-1.0) Estimated GFR (Cockcroft-Gault) 78.7 Glucose Level 99 mg/dL (70-99) Calcium Level 9.6 mg/dL (8.5-10.1) Laboratory Tests Test 12/19/19 15:20 12/20/19 04:00 Lactic Acid Level 1.0 mmol/L (0.4-2.0) Uric Acid 6.3 mg/dL (2.6-6.0) White Blood Count 21.9 x10^3/uL (4.0-11.0) Red Blood Count 4.40 x10^6/uL (3.50-5.40) Hemoglobin 12.9 g/dL (12.0-15.5) Hematocrit 39.4 % (36.0-47.0) Mean Corpuscular Volume 90 fL (79-100) Mean Corpuscular Hemoglobin 29 pg (25-35) Mean Corpuscular Hemoglobin Concent 33 g/dL (31-37) Red Cell Distribution Width 14.5 % (11.5-14.5) Platelet Count 120 x10^3/uL (140-400) Neutrophils (%) (Auto) 72 % (31-73) Lymphocytes (%) (Auto) 10 % (24-48) Monocytes (%) (Auto) 17 % (0-9) Eosinophils (%) (Auto) 0 % (0-3) Basophils (%) (Auto) 1 % (0-3) Neutrophils # (Auto) 15.7 x10^3/uL (1.8-7.7) Lymphocytes # (Auto) 2.2 x10^3/uL (1.0-4.8) Monocytes # (Auto) 3.8 x10^3/uL (0.0-1.1) Eosinophils # (Auto) 0.0 x10^3/uL (0.0-0.7) Basophils # (Auto) 0.1 x10^3/uL (0.0-0.2) Sodium Level 138 mmol/L (136-145) Potassium Level 3.7 mmol/L (3.5-5.1) Chloride Level 102 mmol/L (98-107) Carbon Dioxide Level 26 mmol/L (21-32) Anion Gap 10 (6-14) Blood Urea Nitrogen 7 mg/dL (7-20) Creatinine 0.8 mg/dL (0.6-1.0) Estimated GFR (Cockcroft-Gault) 78.7 Glucose Level 99 mg/dL (70-99) Calcium Level 9.6 mg/dL (8.5-10.1) Microbiology 12/19/19 Blood Culture - Preliminary, Resulted NO GROWTH AFTER 1 DAY 12/18/19 Urine Culture - Final, Complete Medications Current Medications Metoclopramide HCl (Reglan Vial) 10 mg 1X ONCE IVP Last administered on 12/18/19at 23:51; Start 12/18/19 at 23:45; Stop 12/18/19 at 23:46; Status DC Morphine Sulfate (Morphine Sulfate) 4 mg 1X ONCE IV Last administered on 12/18/19at 23:51; Start 12/18/19 at 23:45; Stop 12/18/19 at 23:46; Status DC Ringer's Solution 1,000 ml @ 1,000 mls/hr 1X ONCE IV Last administered on 12/19/19at 01:46; Start 12/19/19 at 01:00; Stop 12/19/19 at 01:59; Status DC Ringer's Solution 1,000 ml @ 150 mls/hr Q6H40M IV Last administered on 12/19/19at 22:00; Start 12/19/19 at 02:00; Stop 12/20/19 at 01:59; Status DC Ceftriaxone Sodium (Rocephin) 1 gm 1X ONCE IVP Last administered on 12/19/19at 03:05; Start 12/19/19 at 02:30; Stop 12/19/19 at 02:31; Status DC Morphine Sulfate (Morphine Sulfate) 4 mg PRN Q2HR PRN IV SEVERE PAIN 7-10 Last administered on 12/19/19at 21:59; Start 12/19/19 at 02:15; Stop 12/20/19 at 00:06; Status DC Metoclopramide HCl (Reglan Vial) 10 mg TID PRN PRN IVP NAUSEA/VOMITING Last administered on 12/19/19 21:59; Start 12/19/19 at 02:15 Acetaminophen/ Hydrocodone Bitart (Lortab 5/325) 1 tab PRN Q4HRS PRN PO MILD PAIN 1-3 Last administered on 12/20/19 11:12; Start 12/19/19 at 13:00 Lidocaine (Lidoderm) 1 patch DAILY TD Last administered on 12/20/19 09:07; Start 12/20/19 at 09:00 Miscellaneous (Lidoderm Patch Removal) 1 ea QHS MC ; Start 12/20/19 at 21:00 Enoxaparin Sodium (Lovenox 40mg Syringe) 40 mg Q24H SQ Last administered on 12/20/19 09:07; Start 12/20/19 at 09:00 Famotidine (Pepcid) 20 mg BID PO Last administered on 12/20/19 09:06; Start 12/19/19 at 21:00 Meloxicam (Mobic) 15 mg DAILY PO Last administered on 12/20/19 09:06; Start 12/20/19 at 09:00 Montelukast Sodium (Singulair) 10 mg QHS PO ; Start 12/19/19 at 21:00 Alprazolam (Xanax) 0.25 mg PRN Q8HRS PRN PO ANXIETY / AGITATION Last ad ministered on 12/20/19 09:16; Start 12/19/19 at 22:00 Piperacillin Sod/ Tazobactam Sod 3.375 gm/Sodium Chloride 50 ml @ 100 mls/hr Q6HRS IV Last administered on 12/20/19 12:24; Start 12/20/19 at 01:00 Acetaminophen (Tylenol) 650 mg PRN Q6HRS PRN PO FEVER > 100.3'F Last administered on 12/20/19 00:28; Start 12/20/19 at 00:15 Morphine Sulfate (Morphine Sulfate) 4 mg PRN Q2HR PRN IV SEVERE PAIN 7-10 Last administered on 12/20/19 11:13; Start 12/20/19 at 00:15 Lactobacillus Rhamnosus (Culturelle) 1 cap BID PO ; Start 12/20/19 at 21:00 Active Scripts Active Percocet 5-325 Mg Tablet (Oxycodone/Acetaminophen) 1 Each Tablet 1-2 Each PO Q6HRS PRN pain Promethazine Hcl 25 Mg Tablet 1 Tab PO PRN Q6HRS PRN Ciprofloxacin Hcl 500 Mg Tablet 1 Tab PO BID Vitals/I & O Vital Sign - Last 24 Hours 12/19/19 12/19/19 12/19/19 12/19/19 14:36 15:07 16:15 18:19 Temp 98.0 98.0 Pulse 75 Resp 18 B/P (MAP) 136/64 (88) Pulse Ox 97 97 97 94 O2 Delivery Room Air Room Air Room Air Room Air 12/19/19 12/19/19 12/19/19 12/19/19 19:00 19:48 19:49 20:00 Temp 98.7 98.7 Pulse 104 Resp 18 20 19 B/P (MAP) 135/76 (95) Pulse Ox 92 O2 Delivery Room Air Room Air Room Air Room Air 12/19/19 12/19/19 12/19/19 12/19/19 20:18 20:49 21:59 22:29 Resp 18 20 19 18 O2 Delivery Room Air Room Air Room Air Room Air 12/19/19 12/20/19 12/20/19 12/20/19 23:00 00:28 00:58 02:45 Temp 101.8 101.8 Pulse 126 Resp 19 B/P (MAP) 144/70 (94) Pulse Ox 89 O2 Delivery Room Air Room Air Room Air Room Air 12/20/19 12/20/19 12/20/19 12/20/19 03:00 03:15 05:01 05:30 Temp 99.5 99.5 Pulse 111 Resp 19 20 B/P (MAP) 141/81 (101) Pulse Ox 93 O2 Delivery Room Air Room Air Room Air Room Air 12/20/19 12/20/19 12/20/19 12/20/19 06:11 07:06 07:10 07:32 Temp 100.1 100.1 Pulse 104 Resp 20 21 B/P (MAP) 126/68 (87) Pulse Ox 93 93 O2 Delivery Room Air Room Air Room Air Room Air 12/20/19 12/20/19 12/20/19 12/20/19 07:32 08:00 09:06 11:12 Pulse Ox 93 93 93 O2 Delivery Room Air Room Air Room Air Room Air 12/20/19 12/20/19 12/20/19 12/20/19 11:13 11:30 11:44 12:24 Temp 100.6 100.6 Pulse 108 Resp 20 B/P (MAP) 145/77 (99) Pulse Ox 93 92 93 93 O2 Delivery Room Air Room Air Room Air Room Air Intake and Output 12/19/19 12/19/19 12/20/19 15:00 23:00 07:00 Intake Total 150 ml 300 ml 100 ml Balance 150 ml 300 ml 100 ml Justifications for Admission Other Justification YASHIRA MERCHANT MD Dec 20, 2019 12:57
[2019-12-20] MEDS ORDERED: IOHEXOL 300 MG/ML 100ML VIAL. IV ONE (14:30)
[2019-12-20] MEDS ORDERED: IOHEXOL 240 MG/ML 50ML VIAL. PO ONE (14:30)
[2019-12-20 15:10] VITALS: BP 134/76
--- NOTE | 2019-12-20 15:47 | RAD ---
Examination: CT abdomen pelvis with oral and IV contrast HISTORY: History of abdominal pain, fever COMPARISON: 12/18/2019 TECHNIQUE: Axial CT images of the abdomen pelvis were performed with oral and IV contrast. Coronal and sagittal reformats are performed. Exposure: One or more of the following individualized dose reduction techniques were utilized for this examination: 1. Automated exposure control 2. Adjustment of the mA and/or kV according to patient size 3. Use of iterative reconstruction technique FINDINGS: Minimal bibasilar lung atelectasis. No evidence of free air identified in the abdomen. Diffuse decreased attenuation noted throughout the liver likely hepatic steatosis with hepatomegaly. The spleen, adrenals grossly appears unremarkable. Gallbladder is mildly distended. The stomach is mildly distended with visualized pancreas grossly appears unremarkable. Small bowel is nondilated. Feces and gas noted in the colon. The appendix is normal. Urinary bladder is mildly distended. There is a cystic structure identified in the left adnexa measuring 2.2 cm probably left ovarian cyst or follicle. The bilateral kidneys enhance symmetrically. Mild degenerative changes lumbar spine. IMPRESSION: 1. Hepatomegaly with hepatic steatosis. 2. A 2.2 cm left ovarian cyst or follicle is identified. Electronically signed by: Nick Myers MD (12/20/2019 3:44 PM) [id number]
--- NOTE | 2019-12-20 17:47 | PDOC ---
[facility] PROGRESS NOTE Date of Service DOS: DATE: 12/20/19 TIME: 17:43 Chief Complaint Chief Complaint Acute abdominal pain with unclear etiology, possible Sd-Bony John with past Hx of D&C and several miscarriages? Acute leukocytosis without clear infectious source Mild hypercalcemia History of kidney stones Mild elevation of AST Morbid obesity Mildly elevated uric acid levels Admit to medicine for further management and pain control Appreciate surgery recommendations No surgery at this time, repeat CT abdomen pelvis with IV contrast Appreciate ID recommendations We will start IV Zosyn Pending PTH levels Continue pain control Regular diet Lovenox for DVT prophylaxis Protonix GI prophylaxis ADA diet Full code Discussed with RN and SW Disposition inpatient, surgery consult Surrogate decision maker is History of Present Illness History of Present Illness 44-year-old female with past medical history of kidney stone 1 year ago and who has had 8 miscarriages and 2 and D&Cs in the past who comes with complaints of right flank pain. She has been dealing with this for about a month but it has worsened the last couple of days. She describes the pain as sharp in nature that starts in her lower back and will radiate straight to her right lower quadrant of her abdomen. She denies nausea vomiting or changes in her bowel habits from this pain. She was started on muscle relaxants for possible concern of muscle strain. However, she does not state that this helps her pain. She has had one episode of a kidney stone that was passed in the past 1 year ago. However, the stone was never analyzed. Patient denies any hematuria, fevers, syncope, chest pain, vaginal bleeding or discharge, or recent risky sexual behavior. 12/20/2019 No acute events overnight. Patient seen and examined bedside. Patient had fever of 100.6 overnight. Patient continues to have the same back pains as her admission. No changes in character or quantity. WBC is 21.9 today decreased from 25. Patient's chart, labs, images were reviewed and discussed with RN Vitals/I&O Vitals/I&O: Vital Signs Date Time Temp Pulse Resp B/P (MAP) Pulse Ox O2 Delivery O2 Flow Rate FiO2 12/20/19 17:09 93 Room Air 12/20/19 15:10 99.7 107 22 134/76 (95) 99.7 I & O 12/19/19 12/19/19 12/20/19 15:00 23:00 07:00 Intake Total 150 ml 300 ml 100 ml Balance 150 ml 300 ml 100 ml Physical Exam Physical Exam: GEN: No apparent distress. Alert and oriented HEENT: Normal cephalic, atraumatic, external auditory canals are patent NECK: Supple, no JVD, no thyromegaly was noted LUNGS: Bilateral crackles HEART: RRR, S1, S2 present. Peripheral pulses intact, no obvious murmurs noted ABDOMEN: No CVA tenderness. Point tenderness in the right posterior flank. Soft, nontender. Positive bowel sounds, no organomegaly, normal bowel sounds EXTREMITIES: Without clubbing, cyanosis, or edema. Pedal pulses intact. Negative Homans sign General: Alert (appears ill) Abdomen: Soft (mildly tender R side, no guarding) Extremities: No clubbing, No cyanosis Labs Labs: Laboratory Tests Test 12/20/19 04:00 White Blood Count 21.9 x10^3/uL (4.0-11.0) Red Blood Count 4.40 x10^6/uL (3.50-5.40) Hemoglobin 12.9 g/dL (12.0-15.5) Hematocrit 39.4 % (36.0-47.0) Mean Corpuscular Volume 90 fL (79-100) Mean Corpuscular Hemoglobin 29 pg (25-35) Mean Corpuscular Hemoglobin Concent 33 g/dL (31-37) Red Cell Distribution Width 14.5 % (11.5-14.5) Platelet Count 120 x10^3/uL (140-400) Neutrophils (%) (Auto) 72 % (31-73) Lymphocytes (%) (Auto) 10 % (24-48) Monocytes (%) (Auto) 17 % (0-9) Eosinophils (%) (Auto) 0 % (0-3) Basophils (%) (Auto) 1 % (0-3) Neutrophils # (Auto) 15.7 x10^3/uL (1.8-7.7) Lymphocytes # (Auto) 2.2 x10^3/uL (1.0-4.8) Monocytes # (Auto) 3.8 x10^3/uL (0.0-1.1) Eosinophils # (Auto) 0.0 x10^3/uL (0.0-0.7) Basophils # (Auto) 0.1 x10^3/uL (0.0-0.2) Sodium Level 138 mmol/L (136-145) Potassium Level 3.7 mmol/L (3.5-5.1) Chloride Level 102 mmol/L (98-107) Carbon Dioxide Level 26 mmol/L (21-32) Anion Gap 10 (6-14) Blood Urea Nitrogen 7 mg/dL (7-20) Creatinine 0.8 mg/dL (0.6-1.0) Estimated GFR (Cockcroft-Gault) 78.7 Glucose Level 99 mg/dL (70-99) Calcium Level 9.6 mg/dL (8.5-10.1) Assessment and Plan Assessmemt and Plan Problems Medical Problems: (1) Bacteria in urine Status: Acute (2) Intractable abdominal pain Status: Acute (3) Leukocytosis Status: Acute Comment Review of Relevant I have reviewed the following items ludivina (where applicable) has been applied. Medications: Current Medications Medications (Trade) Dose Ordered Sig/Kaci Route PRN Reason Start Time Stop Time Status Last Admin Dose Admin Lidocaine (Lidoderm) 1 patch DAILY TD 12/20/19 09:00 12/20/19 09:07 Enoxaparin Sodium (Lovenox 40mg Syringe) 40 mg Q24H SQ 12/20/19 09:00 12/20/19 15:01 DC 12/20/19 09:07 Famotidine (Pepcid) 20 mg BID PO 12/19/19 21:00 12/20/19 09:06 Meloxicam (Mobic) 15 mg DAILY PO 12/20/19 09:00 12/20/19 09:06 Alprazolam (Xanax) 0.25 mg PRN Q8HRS PRN PO ANXIETY / AGITATION 12/19/19 22:00 12/20/19 09:16 Piperacillin Sod/ Tazobactam Sod 3.375 gm/Sodium Chloride 50 ml @ 100 mls/hr Q6HRS IV 12/20/19 01:00 12/20/19 17:11 Acetaminophen (Tylenol) 650 mg PRN Q6HRS PRN PO FEVER > 100.3'F 12/20/19 00:15 12/20/19 00:28 Morphine Sulfate (Morphine Sulfate) 4 mg PRN Q2HR PRN IV SEVERE PAIN 7-10 12/20/19 00:15 12/20/19 17:09 Iohexol (Omnipaque 300 Mg/ml) 75 ml 1X ONCE IV 12/20/19 14:30 12/20/19 14:31 DC 12/20/19 14:30 Iohexol (Omnipaque 240 Mg/ml) 50 ml 1X ONCE PO 12/20/19 14:30 12/20/19 14:31 DC 12/20/19 14:30 Justifications for Admission Other Justification MAI VEE MD Dec 20, 2019 17:47
[2019-12-20 19:00] VITALS: BP 147/68
[2019-12-20] MEDS: PATCH REMOVAL. MC SCH (21:00)
[2019-12-20] MEDS: MONTELUKAST SODIUM 10 MG TABLET. PO SCH (21:39)
[2019-12-20] MEDS: LACTOBACILLUS RHAMNOSUS GG 1 CAPSULE. PO SCH (21:39)
[2019-12-20 23:00] VITALS: BP 110/59
[2019-12-21] MEDS: PIPERACILLIN/TAZOBACTAM 3.375 GM in IV NORMAL SALINE 50ML 50 ML IV SCH ×5 (00:28→23:47)
[2019-12-21] MEDS: HYDROcodone/APAP 5/325MG 1 TAB TABLET PO PRN ×4 (00:38→20:19)
[2019-12-21 03:10] VITALS: BP 137/66
[2019-12-21] MEDS: METOCLOPRAMIDE HCL 10 MG/2 ML VIAL. IVP PRN ×3 (05:46→23:19)
[2019-12-21 07:00] VITALS: BP 133/75
--- NOTE | 2019-12-21 07:50 | PDOC ---
PROGRESS NOTES Date of Service DATE: 12/21/19 TIME: 07:49 Subjective Subjective feeling better, no more abdominal pain Objective Objective Vital Signs Date Time Temp Pulse Resp B/P (MAP) Pulse Ox O2 Delivery O2 Flow Rate FiO2 12/21/19 03:10 99.5 97 18 137/66 (89) 92 Room Air 99.5 Intake and Output 12/21/19 07:00 Output Total 0 ml Balance 0 ml Output Urine Total 0 ml # Voids 2 Physical Exam Abdomen: Soft, No tenderness Heart: Regular rate Extremities: No clubbing, No cyanosis General: Alert, Oriented X3 HEENT: Atraumatic Neuro: Normal speech Psych/Mental Status: Mental status NL Assessment Assessment Problems Medical Problems: (1) Bacteria in urine Status: Acute (2) Intractable abdominal pain Status: Acute (3) Leukocytosis Status: Acute Plan Plan of Care Clinical improvement; repeat contrasted CT negative, normal appendix; original etiology unclear, ID consulted; ?covid testing; I will sign off, please call if needed in the future Comment Review of Relevant I have reviewed the following items ludivina (where applicable) has been applied. Labs Laboratory Tests Test 12/19/19 15:20 12/20/19 04:00 Lactic Acid Level 1.0 mmol/L (0.4-2.0) Uric Acid 6.3 mg/dL (2.6-6.0) White Blood Count 21.9 x10^3/uL (4.0-11.0) Red Blood Count 4.40 x10^6/uL (3.50-5.40) Hemoglobin 12.9 g/dL (12.0-15.5) Hematocrit 39.4 % (36.0-47.0) Mean Corpuscular Volume 90 fL (79-100) Mean Corpuscular Hemoglobin 29 pg (25-35) Mean Corpuscular Hemoglobin Concent 33 g/dL (31-37) Red Cell Distribution Width 14.5 % (11.5-14.5) Platelet Count 120 x10^3/uL (140-400) Neutrophils (%) (Auto) 72 % (31-73) Lymphocytes (%) (Auto) 10 % (24-48) Monocytes (%) (Auto) 17 % (0-9) Eosinophils (%) (Auto) 0 % (0-3) Basophils (%) (Auto) 1 % (0-3) Neutrophils # (Auto) 15.7 x10^3/uL (1.8-7.7) Lymphocytes # (Auto) 2.2 x10^3/uL (1.0-4.8) Monocytes # (Auto) 3.8 x10^3/uL (0.0-1.1) Eosinophils # (Auto) 0.0 x10^3/uL (0.0-0.7) Basophils # (Auto) 0.1 x10^3/uL (0.0-0.2) Sodium Level 138 mmol/L (136-145) Potassium Level 3.7 mmol/L (3.5-5.1) Chloride Level 102 mmol/L (98-107) Carbon Dioxide Level 26 mmol/L (21-32) Anion Gap 10 (6-14) Blood Urea Nitrogen 7 mg/dL (7-20) Creatinine 0.8 mg/dL (0.6-1.0) Estimated GFR (Cockcroft-Gault) 78.7 Glucose Level 99 mg/dL (70-99) Calcium Level 9.6 mg/dL (8.5-10.1) Microbiology 12/19/19 Blood Culture - Preliminary, Resulted NO GROWTH AFTER 2 DAYS 12/18/19 Urine Culture - Final, Complete Medications Current Medications Metoclopramide HCl (Reglan Vial) 10 mg 1X ONCE IVP Last administered on 12/18/19at 23:51; Start 12/18/19 at 23:45; Stop 12/18/19 at 23:46; Status DC Morphine Sulfate (Morphine Sulfate) 4 mg 1X ONCE IV Last administered on 12/18/19at 23:51; Start 12/18/19 at 23:45; Stop 12/18/19 at 23:46; Status DC Ringer's Solution 1,000 ml @ 1,000 mls/hr 1X ONCE IV Last administered on 12/19/19at 01:46; Start 12/19/19 at 01:00; Stop 12/19/19 at 01:59; Status DC Ringer's Solution 1,000 ml @ 150 mls/hr Q6H40M IV Last administered on 12/19/19at 22:00; Start 12/19/19 at 02:00; Stop 12/20/19 at 01:59; Status DC Ceftriaxone Sodium (Rocephin) 1 gm 1X ONCE IVP Last administered on 12/19/19 03:05; Start 12/19/19 at 02:30; Stop 12/19/19 at 02:31; Status DC Morphine Sulfate (Morphine Sulfate) 4 mg PRN Q2HR PRN IV SEVERE PAIN 7-10 Last administered on 12/19/19 21:59; Start 12/19/19 at 02:15; Stop 12/20/19 at 00:06; Status DC Metoclopramide HCl (Reglan Vial) 10 mg TID PRN PRN IVP NAUSEA/VOMITING Last administered on 12/21/19 05:46; Start 12/19/19 at 02:15 Acetaminophen/ Hydrocodone Bitart (Lortab 5/325) 1 tab PRN Q4HRS PRN PO MILD PAIN 1-3 Last administered on 12/21/19 00:38; Start 12/19/19 at 13:00 Lidocaine (Lidoderm) 1 patch DAILY TD Last administered on 12/20/19 09:07; Start 12/20/19 at 09:00 Miscellaneous (Lidoderm Patch Removal) 1 ea QHS MC Last administered on 12/20/19 21:00; Start 12/20/19 at 21:00 Enoxaparin Sodium (Lovenox 40mg Syringe) 40 mg Q24H SQ Last administered on 12/20/19 09:07; Start 12/20/19 at 09:00; Stop 12/20/19 at 15:01; Status DC Famotidine (Pepcid) 20 mg BID PO Last administered on 12/20/19 21:39; Start 12/19/19 at 21:00 Meloxicam (Mobic) 15 mg DAILY PO Last administered on 12/20/19 09:06; Start 12/20/19 at 09:00 Montelukast Sodium (Singulair) 10 mg QHS PO Last administered on 12/20/19 21:39; Start 12/19/19 at 21:00 Alprazolam (Xanax) 0.25 mg PRN Q8HRS PRN PO ANXIETY / AGITATION Last administered on 12/20/19 09:16; Start 12/19/19 at 22:00 Piperacillin Sod/ Tazobactam Sod 3.375 gm/Sodium Chloride 50 ml @ 100 mls/hr Q6HRS IV Last administered on 12/21/19 06:04; Start 12/20/19 at 01:00 Acetaminophen (Tylenol) 650 mg PRN Q6HRS PRN PO FEVER > 100.3'F Last administered on 12/20/19at 00:28; Start 12/20/19 at 00:15 Morphine Sulfate (Morphine Sulfate) 4 mg PRN Q2HR PRN IV SEVERE PAIN 7-10 Last administered on 12/20/19at 21:40; Start 12/20/19 at 00:15 Lactobacillus Rhamnosus (Culturelle) 1 cap BID PO Last administered on 12/20/19at 21:39; Start 12/20/19 at 21:00 Iohexol (Omnipaque 300 Mg/ml) 75 ml 1X ONCE IV Last administered on 12/20/19at 14:30; Start 12/20/19 at 14:30; Stop 12/20/19 at 14:31; Status DC Iohexol (Omnipaque 240 Mg/ml) 50 ml 1X ONCE PO Last administered on 12/20/19at 14:30; Start 12/20/19 at 14:30; Stop 12/20/19 at 14:31; Status DC Enoxaparin Sodium (Lovenox 60mg Syringe) 60 mg BID SQ Last administered on 12/20/19at 21:39; Start 12/20/19 at 21:00 Active Scripts Active Percocet 5-325 Mg Tablet (Oxycodone/Acetaminophen) 1 Each Tablet 1-2 Each PO Q6HRS PRN pain Promethazine Hcl 25 Mg Tablet 1 Tab PO PRN Q6HRS PRN Ciprofloxacin Hcl 500 Mg Tablet 1 Tab PO BID Vitals/I & O Vital Sign - Last 24 Hours 12/20/19 12/20/19 12/20/19 12/20/19 08:00 09:06 11:12 11:13 Pulse Ox 93 93 93 O2 Delivery Room Air Room Air Room Air Room Air 12/20/19 12/20/19 12/20/19 12/20/19 11:30 11:44 12:24 13:54 Temp 100.6 100.6 Pulse 108 Resp 20 B/P (MAP) 145/77 (99) Pulse Ox 92 93 93 93 O2 Delivery Room Air Room Air Room Air Room Air 12/20/19 12/20/19 12/20/19 12/20/19 14:34 15:10 17:08 17:09 Temp 99.7 99.7 Pulse 107 Resp 22 B/P (MAP) 134/76 (95) Pulse Ox 93 90 93 93 O2 Delivery Room Air Room Air Room Air Room Air 12/20/19 12/20/19 12/20/19 12/20/19 17:59 17:59 19:00 19:11 Temp 99.1 99.1 Pulse 109 Resp 17 B/P (MAP) 147/68 (94) Pulse Ox 93 93 96 93 O2 Delivery Room Air Room Air Room Air Room Air 12/20/19 12/20/19 12/20/19 12/20/19 19:41 21:40 22:10 23:00 Temp 99.1 99.1 Pulse 100 Resp 19 20 19 18 B/P (MAP) 110/59 (76) Pulse Ox 92 O2 Delivery Room Air Room Air Room Air Room Air 12/21/19 12/21/19 00:38 03:10 Temp 99.5 99.5 Pulse 97 Resp 19 18 B/P (MAP) 137/66 (89) Pulse Ox 92 O2 Delivery Room Air Room Air Intake and Output 12/20/19 12/20/19 12/21/19 15:00 23:00 07:00 Output Total 0 ml Balance 0 ml Justifications for Admission Other Justification YASHIRA MERCHANT MD Dec 21, 2019 07:50
[2019-12-21] MEDS: MELOXICAM 7.5 MG TABLET PO SCH (08:17)
[2019-12-21] MEDS: LACTOBACILLUS RHAMNOSUS GG 1 CAPSULE. PO SCH ×2 (08:18→22:34)
[2019-12-21] MEDS: FAMOTIDINE 20 MG TABLET. PO SCH ×2 (08:18→22:33)
[2019-12-21] MEDS: LIDOCAINE (700MG/PATCH) PATCH. TD SCH (08:18)
[2019-12-21 09:09] LABS: CALCIUM PTH 10.2 mg/dL (8.7-10.2); CREATININE PTH 0.73 mg/dL (0.57-1.00); PHOSPHORUS PTH 1.6 mg/dL (3.0-4.3); PTH INTACT 124 pg/mL (15-65)
[2019-12-21 11:01] VITALS: BP 127/71
--- NOTE | 2019-12-21 12:29 | PDOC ---
[facility] PROGRESS NOTE Date of Service DOS: DATE: 12/21/19 TIME: 12:26 Chief Complaint Chief Complaint Acute abdominal pain with unclear etiology Back pain - focal T-11, T-12 back pain, will check CRP, review CT, will check SPEP, UPEP, light chains, may need MRI spine. Acute leukocytosis without clear infectious source Mild hypercalcemia - elevated PTH, likely primary hyperparathyroidism History of kidney stones Mild elevation of AST Morbid obesity Mildly elevated uric acid levels Sepsis - fever, tachycardia, no clear infectious source Continue pain control Regular diet Lovenox for DVT prophylaxis Protonix GI prophylaxis ADA diet Full code Discussed with RN and SW Disposition inpatient, surgery consult Surrogate decision maker is History of Present Illness History of Present Illness Ms Yo is a 44-year-old female with past medical history of kidney stone 1 year ago and who has had 8 miscarriages and 2 and D&Cs in the past who comes with complaints of right flank pain. She has been dealing with this for about a month but it has worsened the last couple of days. She describes the pain as sharp in nature that starts in her lower back and will radiate straight to her right lower quadrant of her abdomen. She denies nausea vomiting or changes in her bowel habits from this pain. She was started on muscle relaxants for possible concern of muscle strain. However, she does not state that this helps her pain. She has had one episode of a kidney stone that was passed in the past 1 year ago. However, the stone was never analyzed. Patient denies any hematuria, fevers, syncope, chest pain, vaginal bleeding or discharge, or recent risky sexual behavior. 12/19: Patient had fever of 100.6 overnight. Patient continues to have the same back pains as her admission. No changes in character or quantity. WBC is 21.9 today decreased from 25. Patient's chart, labs, images were reviewed and discussed with RN Febrile to 101.2 F this morning. Vitals/I&O Vitals/I&O: Vital Signs Date Time Temp Pulse Resp B/P (MAP) Pulse Ox O2 Delivery O2 Flow Rate FiO2 12/21/19 11:01 97.7 105 18 127/71 (89) 95 Room Air 97.7 I & O 12/20/19 12/20/19 12/21/19 15:00 23:00 07:00 Output Total 0 ml Balance 0 ml Physical Exam Physical Exam: GEN: No apparent distress. Alert and oriented HEENT: Normal cephalic, atraumatic, external auditory canals are patent NECK: Supple, no JVD, no thyromegaly was noted LUNGS: Bilateral crackles HEART: RRR, S1, S2 present. Peripheral pulses intact, no obvious murmurs noted ABDOMEN: No CVA tenderness. Point tenderness in the right posterior flank. Soft, nontender. Positive bowel sounds, no organomegaly, normal bowel sounds EXTREMITIES: Without clubbing, cyanosis, or edema. Pedal pulses intact. Negative Homans sign General: Alert, Oriented X3 Heart: Regular rate Abdomen: Soft, No tenderness Extremities: No clubbing, No cyanosis Assessment and Plan Assessmemt and Plan Problems Medical Problems: (1) Bacteria in urine Status: Acute (2) Intractable abdominal pain Status: Acute (3) Leukocytosis Status: Acute Comment Review of Relevant I have reviewed the following items ludivina (where applicable) has been applied. Medications: Current Medications Medications (Trade) Dose Ordered Sig/Kaci Route PRN Reason Start Time Stop Time Status Last Admin Dose Admin Miscellaneous (Lidoderm Patch Removal) 1 ea QHS MC 12/20/19 21:00 12/20/19 21:00 Lactobacillus Rhamnosus (Culturelle) 1 cap BID PO 12/20/19 21:00 12/21/19 08:18 Iohexol (Omnipaque 300 Mg/ml) 75 ml 1X ONCE IV 12/20/19 14:30 12/20/19 14:31 DC 12/20/19 14:30 Iohexol (Omnipaque 240 Mg/ml) 50 ml 1X ONCE PO 12/20/19 14:30 12/20/19 14:31 DC 12/20/19 14:30 Enoxaparin Sodium (Lovenox 60mg Syringe) 60 mg BID SQ 12/20/19 21:00 12/21/19 11:38 Justifications for Admission Other Justification ALEKSEY SIMMONS MD Dec 21, 2019 12:29
[2019-12-21] MEDS ORDERED: KETOROLAC 30 MG/ML VIAL. IVP PRN (12:30)
[2019-12-21] MEDS: CHOLECALCIFEROL (VITAMIN D3) 5,000 UNIT CAPSULE PO SCH (14:08)
[2019-12-21] MEDS: ALPRAZolam 0.25 MG TABLET PO PRN ×2 (14:08→23:47)
[2019-12-21] MEDS: ACETAMINOPHEN 325 MG TABLET. PO PRN ×2 (14:18→23:20)
[2019-12-21 14:33] LABS: ALBUMIN 3.5 g/dL (3.4-5.0); CALCIUM 10.4 mg/dL (8.5-10.1); CREATININE 0.5 mg/dL (0.6-1.0); GFR 135.3; PHOSPHORUS 1.3 mg/dL (2.6-4.7); POTASSIUM 3.6 mmol/L (3.5-5.1)
[2019-12-21 15:20] VITALS: BP 125/67
[2019-12-21] MEDS: POTASSIUM PHOS,M-BASIC-D-BASIC 13.6 MMOL in IV NORMAL SALINE 250ML 250 ML IV SCH ×2 (16:35→20:20)
[2019-12-21 19:05] VITALS: BP 151/85
--- NOTE | 2019-12-21 20:56 | PDOC ---
VITAL SIGNS Vital Signs/I&O: Vital Signs Date Time Temp Pulse Resp B/P (MAP) Pulse Ox O2 Delivery O2 Flow Rate FiO2 12/21/19 20:19 19 Room Air 12/21/19 19:05 99.7 110 151/85 (107) 99 99.7 I & O 12/20/19 12/20/19 12/21/19 15:00 23:00 07:00 Output Total 0 ml Balance 0 ml ALLERGIES Allergies: Allergies Coded Allergies Type Severity Reaction Last Updated Verified benzonatate Allergy Intermediate 12/19/19 Yes clarithromycin Allergy Intermediate 12/19/19 Yes erythromycin base Allergy Intermediate 12/19/19 Yes ondansetron Allergy Intermediate 12/19/19 Yes I S O L A T I O N *CONTACT* Allergy Unknown 11/20/17 Yes codeine Adverse Reaction Intermediate FEELS LIKE SHE IS ON SPEED 11/17/17 Yes MEDS Medications: Current Medications Medications (Trade) Dose Ordered Sig/Kaci Route PRN Reason Start Time Stop Time Status Last Admin Dose Admin Miscellaneous (Lidoderm Patch Removal) 1 ea QHS 12/20/19 21:00 12/20/19 21:00 Lactobacillus Rhamnosus (Culturelle) 1 cap BID PO 12/20/19 21:00 12/21/19 08:18 Enoxaparin Sodium (Lovenox 60mg Syringe) 60 mg BID SQ 12/20/19 21:00 12/21/19 11:38 Vitamin D (Vitamin D3) 5,000 unit DAILY PO 12/21/19 12:30 12/21/19 14:08 Potassium Phosphate 13.6 mmol/Sodium Chloride 254.5333 ml @ 127.... Q2H IV 12/21/19 15:00 12/21/19 18:59 DC 12/21/19 20:20 LAB Lab: Laboratory Tests Test 12/21/19 13:35 Sodium Level 134 mmol/L (136-145) L Potassium Level 3.6 mmol/L (3.5-5.1) Chloride Level 100 mmol/L (98-107) Carbon Dioxide Level 26 mmol/L (21-32) Anion Gap 8 (6-14) Blood Urea Nitrogen 5 mg/dL (7-20) L Creatinine 0.5 mg/dL (0.6-1.0) L Estimated GFR (Cockcroft-Gault) 135.3 Glucose Level 106 mg/dL (70-99) H Calcium Level 10.4 mg/dL (8.5-10.1) H Phosphorus Level 1.3 mg/dL (2.6-4.7) L C-Reactive Protein, Quantitative 217.1 mg/L (0-3.3) H Albumin 3.5 g/dL (3.4-5.0) Laboratory Tests 12/21/19 13:35 ASSESSMENT & PLAN A&P pt aeen and examined ID consult dictated Thank you Justifications for Admission Other Justification CHITRA CORDOVA MD Dec 21, 2019 20:56
[2019-12-21] MEDS: PATCH REMOVAL. MC SCH (21:00)
[2019-12-21] MEDS: DOXYCYCLINE HYCLATE 100 MG TABLET PO SCH (22:33)
[2019-12-21] MEDS: MONTELUKAST SODIUM 10 MG TABLET. PO SCH (22:33)
[2019-12-21 23:00] VITALS: BP 155/97
--- NOTE | 2019-12-21 23:21 | CONS ---
DATE OF CONSULTATION: 12/21/2019 REFERRING PHYSICIAN: Dr. Arias. REASON FOR CONSULTATION: Antibiotic management. HISTORY OF PRESENT ILLNESS: A 44-year-old female with past medical history of kidney stone, presented with complaints of fever, which started last Saturday along with some complaints of right flank pain. Her flank pain started 2 weeks ago Initially patient thought she probably had a kidney stone. Her pain occurred 2 weeks ago. She was seen by her primary care physician. Labs were obtained; they were unremarkable. She was started on anti-inflammatory for muscle strain. She continued to have pain with new fevers. She was found to have leukocytosis with bandemia. UA was negative. She denied any dysuria, hematuria, increased frequency, nausea, vomiting, diarrhea, abdominal pain, shortness of breath, cough, headache, sore throat, difficulty swallowing, joint pain, rash, or sick contact. Denies any recent procedure. She was initially started on Rocephin. UA showed only 1-4 wbc's. Beta hCG was negative. Uric acid was 6.3. Urine culture from 12/18/2019 shows 3 or more organisms, likely contaminant. Blood cultures remained negative. She underwent CT on 12/18/2019, which showed no acute abnormality throughout the abdomen or pelvis. No nephrolithiasis or collecting system dilatation, hepatic steatosis and additional chronic findings. The patient was found to have a left ovarian cyst. Repeat CT yesterday showed a cystic structure in the left adnexa 2.2 cm, probably left ovarian cyst or follicle, bilateral kidneys enhance symmetrically, mild degenerative changes in the lumbar spine, hepatomegaly with hepatic steatosis. Gallbladder mildly distended. The patient was evaluated by General Surgery. The patient is not a candidate for surgery. The patient is currently on Zosyn. ID consult has been requested for ongoing fevers and for evaluation of fever of unknown origin. PAST MEDICAL HISTORY: Seasonal allergies, history of kidney stone, x 2, miscarriages and ulnar nerve surgery, right arm. ALLERGIES: BENZONATATE, CLARITHROMYCIN, ERYTHROMYCIN, ZOFRAN, CODEINE. FAMILY HISTORY: As per HPI. SOCIAL HISTORY: EtOH, rare. No tobacco, no drug use. , has 3 children. Works at desk job. No outdoor activities. No pets. CURRENT MEDICATIONS: Zosyn. Had received ceftriaxone. Other medications reviewed in medication list. REVIEW OF SYSTEMS: Negative except for above in HPI. PHYSICAL EXAMINATION: VITAL SIGNS: Temperature 97.7, T-max 101.2, pulse 105, respiratory rate 18, blood pressure 127/71, oxygen saturation 95% on room air. GENERAL: Alert, oriented x 3 female, lying in bed comfortably, in no acute distress. HEENT: Normocephalic, atraumatic. Anicteric. No thrush. NECK: Supple. No JVD. LUNGS: Clear bilaterally. No wheezing. HEART: S1, S2. No gallops or murmurs. ABDOMEN: Soft, nontender, nondistended. No rebound, no guarding. EXTREMITIES: No edema, no cyanosis. DERMATOLOGIC: Warm, dry. No generalized rash. NEUROLOGIC: Alert and oriented x 3, grossly nonfocal. PSYCHIATRIC: Cooperative, appropriate mood and affect. MUSCULOSKELETAL: No joint swelling, no decrease in range of motion. LABORATORY DATA: WBC 21.9, was 25.4. HB12.9, hematocrit 39.4, platelets 120, bands were 21. Sodium 138, potassium 3.7, chloride 102, bicarbonate 26, BUN 7, creatinine 0.8, glucose 99. Uric acid 6.3. Lactate 1.0, calcium 9.6. Vitamin D 6.7. Phosphorus 1.6. UA ;1-4 wbc's, no leukocyte esterase. Beta hCG negative. MICRO: Blood culture negative so far. Urine culture more than 3 organisms likely contaminant. IMAGING: CT of the abdomen and pelvis with and without contrast as above. IMPRESSION: 1. Leukocytosis with bandemia, etiology unclear at this time 2. Fever. 3. Back pain. 4. History of kidney stone. The patient may have passed a kidney stone with residual findings. No localizing findings at this time. 5. Morbid obesity. 6. Asthma with seasonal allergies. 7. Lt Ovarian cyst on CT. RECOMMENDATIONS: 1. Continue Zosyn. 2. Add empiric doxy. 3. Check urine for GC and chlamydia. 4. Trend WBC and fever pattern. 5. Pt may need imaging of her back 6. Continue supportive care. Thank you for allowing me to participate in this patient's care. If you have any questions, do not hesitate to contact me. CHITRA CORDOVA MD DR: CHIP/jayne JOB#: [id number] / [id number] [place]
[2019-12-22 02:47] VITALS: BP 133/90
[2019-12-22 04:50] LABS: ALBUMIN 3.4 g/dL (3.4-5.0); ALBUMIN/GLOBULIN RATIO 0.9 (1.0-1.7); CREATININE 0.7 mg/dL (0.6-1.0); GFR 91.8; POTASSIUM 3.6 mmol/L (3.5-5.1); TOTAL BILIRUBIN 1.3 mg/dL (0.2-1.0); TOTAL PROTEIN 7.4 g/dL (6.4-8.2)
[2019-12-22] MEDS: HYDROcodone/APAP 5/325MG 1 TAB TABLET PO PRN ×3 (06:32→21:36)
[2019-12-22] MEDS: PIPERACILLIN/TAZOBACTAM 3.375 GM in IV NORMAL SALINE 50ML 50 ML IV SCH ×3 (06:32→17:37)
[2019-12-22 07:00] VITALS: BP 145/93
[2019-12-22 07:03] LABS: BASO # 0.1 x10^3/uL (0.0-0.2); BASO % 1 % (0-3); EOS % 0 % (0-3); HEMOGLOBIN 13.4 g/dL (12.0-15.5); LYMPH # 1.9 x10^3/uL (1.0-4.8); LYMPH % 14 % (24-48); MEAN CORPUSCULAR HEMOGLOBIN 30 pg (25-35); MEAN CORPUSCULAR HGB CONC 33 g/dL (31-37); MEAN CORPUSCULAR VOLUME 89 fL (79-100); MONO # 2.6 x10^3/uL (0.0-1.1); MONO % 19 % (0-9); NEUT # 8.8 x10^3/uL (1.8-7.7); NEUT % 66 % (31-73); PLATELET COUNT 64 x10^3/uL (140-400); RED BLOOD COUNT 4.49 x10^6/uL (3.50-5.40); RED CELL DISTRIBUTION WIDTH 14.5 % (11.5-14.5); WHITE BLOOD COUNT 13.4 x10^3/uL (4.0-11.0)
[2019-12-22 07:59] LABS: % BANDS 7 % (0-9); % LYMPHS 12 % (24-48); % METAS 1 % (0-0); % MONOS 21 % (0-10); % SEGS 59 % (35-66); PLT ESTIMATE DECREASED (ADEQUATE); POLYCHROMASIA SLIGHT
--- NOTE | 2019-12-22 08:06 | PDOC ---
[employer] PROGRESS NOTE Date of Service DOS: DATE: 12/22/19 TIME: 08:03 Chief Complaint Chief Complaint A/P: Acute abdominal pain with unclear etiology Back pain - focal T-12-L1 back pain, elevated CRP, review CT, will check SPEP, UPEP, light chains, needs MRI spine. Acute leukocytosis without clear infectious source Mild hypercalcemia - elevated PTH, likely primary hyperparathyroidism History of kidney stones Mild elevation of AST Morbid obesity Mildly elevated uric acid levels Sepsis - fever, tachycardia, no clear infectious source Thrombocytopenia - new, will hold lovenox and check HIT antibodies Continue pain control Regular diet Lovenox for DVT prophylaxis Protonix GI prophylaxis ADA diet Full code Discussed with RN and HARSHIL Disposition inpatient, surgery consult Surrogate decision maker is History of Present Illness History of Present Illness Ms Yo is a 44-year-old female with past medical history of kidney stone 1 year ago and who has had 8 miscarriages and 2 and D&Cs in the past who comes with complaints of right flank pain. She has been dealing with this for about a month but it has worsened the last couple of days. She describes the pain as sharp in nature that starts in her lower back and will radiate straight to her right lower quadrant of her abdomen. She denies nausea vomiting or changes in her bowel habits from this pain. She was started on muscle relaxants for possible concern of muscle strain. However, she does not state that this helps her pain. She has had one episode of a kidney stone that was passed in the past 1 year ago. However, the stone was never analyzed. Patient denies any hematuria, fevers, syncope, chest pain, vaginal bleeding or discharge, or recent risky sexual behavior. 12/19: Patient had fever of 100.6 overnight. Patient continues to have the same back pains as her admission. No changes in character or quantity. WBC is 21.9 today decreased from 25. Patient's chart, labs, images were reviewed and discussed with RN 12/20: Febrile to 101.2 F this morning. C/o back pain Febrile febrile 100.5 F today. WBC 13.4, Hb 13.4, platelets down to 64. CRP returned to 217. Back pain a bit better Vitals/I&O Vitals/I&O: Vital Signs Date Time Temp Pulse Resp B/P (MAP) Pulse Ox O2 Delivery O2 Flow Rate FiO2 12/22/19 06:32 19 Room Air 12/22/19 02:47 98.7 97 133/90 (104) 94 98.7 I & O 12/21/19 12/21/19 12/22/19 15:00 23:00 07:00 Intake Total 600 ml 100 ml 0 ml Balance 600 ml 100 ml 0 ml Physical Exam Physical Exam: GEN: No apparent distress. Alert and oriented HEENT: Normal cephalic, atraumatic, external auditory canals are patent NECK: Supple, no JVD, no thyromegaly was noted LUNGS: Bilateral crackles HEART: RRR, S1, S2 present. Peripheral pulses intact, no obvious murmurs noted ABDOMEN: No CVA tenderness. Point tenderness in the right posterior flank. Soft, nontender. Positive bowel sounds, no organomegaly, normal bowel sounds EXTREMITIES: Without clubbing, cyanosis, or edema. Pedal pulses intact. Negative Homans sign General: Alert, Oriented X3 Heart: Regular rate Abdomen: Soft, No tenderness Extremities: No clubbing, No cyanosis Labs Labs: Laboratory Tests Test 12/21/19 13:35 12/22/19 03:15 Sodium Level 134 mmol/L (136-145) 134 mmol/L (136-145) Potassium Level 3.6 mmol/L (3.5-5.1) 3.6 mmol/L (3.5-5.1) Chloride Level 100 mmol/L (98-107) 100 mmol/L (98-107) Carbon Dioxide Level 26 mmol/L (21-32) 26 mmol/L (21-32) Anion Gap 8 (6-14) 8 (6-14) Blood Urea Nitrogen 5 mg/dL (7-20) 8 mg/dL (7-20) Creatinine 0.5 mg/dL (0.6-1.0) 0.7 mg/dL (0.6-1.0) Estimated GFR (Cockcroft-Gault) 135.3 91.8 Glucose Level 106 mg/dL (70-99) 111 mg/dL (70-99) Calcium Level 10.4 mg/dL (8.5-10.1) 10.0 mg/dL (8.5-10.1) Phosphorus Level 1.3 mg/dL (2.6-4.7) C-Reactive Protein, Quantitative 217.1 mg/L (0-3.3) Albumin 3.5 g/dL (3.4-5.0) 3.4 g/dL (3.4-5.0) White Blood Count 13.4 x10^3/uL (4.0-11.0) Red Blood Count 4.49 x10^6/uL (3.50-5.40) Hemoglobin 13.4 g/dL (12.0-15.5) Hematocrit 40.0 % (36.0-47.0) Mean Corpuscular Volume 89 fL (79-100) Mean Corpuscular Hemoglobin 30 pg (25-35) Mean Corpuscular Hemoglobin Concent 33 g/dL (31-37) Red Cell Distribution Width 14.5 % (11.5-14.5) Platelet Count 64 x10^3/uL (140-400) Neutrophils (%) (Auto) 66 % (31-73) Lymphocytes (%) (Auto) 14 % (24-48) Monocytes (%) (Auto) 19 % (0-9) Eosinophils (%) (Auto) 0 % (0-3) Basophils (%) (Auto) 1 % (0-3) Neutrophils # (Auto) 8.8 x10^3/uL (1.8-7.7) Lymphocytes # (Auto) 1.9 x10^3/uL (1.0-4.8) Monocytes # (Auto) 2.6 x10^3/uL (0.0-1.1) Eosinophils # (Auto) 0.0 x10^3/uL (0.0-0.7) Basophils # (Auto) 0.1 x10^3/uL (0.0-0.2) Segmented Neutrophils % 59 % (35-66) Band Neutrophils % 7 % (0-9) Lymphocytes % 12 % (24-48) Monocytes % 21 % (0-10) Metamyelocytes % 1 % (0-0) Platelet Estimate Decreased (ADEQUATE) Polychromasia Slight BUN/Creatinine Ratio 11 (6-20) Total Bilirubin 1.3 mg/dL (0.2-1.0) Aspartate Amino Transf (AST/SGOT) 55 U/L (15-37) Alanine Aminotransferase (ALT/SGPT) 41 U/L (14-59) Alkaline Phosphatase 155 U/L (46-116) Total Protein 7.4 g/dL (6.4-8.2) Albumin/Globulin Ratio 0.9 (1.0-1.7) Assessment and Plan Assessmemt and Plan Problems Medical Problems: (1) Bacteria in urine Status: Acute (2) Intractable abdominal pain Status: Acute (3) Leukocytosis Status: Acute Comment Review of Relevant I have reviewed the following items ludivina (where applicable) has been applied. Medications: Current Medications Medications (Trade) Dose Ordered Sig/Kaci Route PRN Reason Start Time Stop Time Status Last Admin Dose Admin Vitamin D (Vitamin D3) 5,000 unit DAILY PO 12/21/19 12:30 12/21/19 14:08 Doxycycline Hyclate (Vibra-Tab) 100 mg BID PO 12/21/19 21:00 12/21/19 22:33 Potassium Phosphate 13.6 mmol/Sodium Chloride 254.5333 ml @ 127.... Q2H IV 12/21/19 15:00 12/21/19 18:59 DC 12/21/19 20:20 Justifications for Admission Other Justification ALEKSEY SIMMONS MD Dec 22, 2019 08:06
[2019-12-22] MEDS: DOXYCYCLINE HYCLATE 100 MG TABLET PO SCH ×2 (09:42→21:28)
[2019-12-22] MEDS: LACTOBACILLUS RHAMNOSUS GG 1 CAPSULE. PO SCH ×2 (09:42→21:27)
[2019-12-22] MEDS: CHOLECALCIFEROL (VITAMIN D3) 5,000 UNIT CAPSULE PO SCH (09:42)
[2019-12-22] MEDS: FAMOTIDINE 20 MG TABLET. PO SCH ×2 (09:42→21:27)
[2019-12-22] MEDS: MELOXICAM 7.5 MG TABLET PO SCH (09:43)
[2019-12-22] MEDS: LIDOCAINE (700MG/PATCH) PATCH. TD SCH (09:43)
--- NOTE | 2019-12-22 10:18 | PDOC2 ---
CONSULT Date of Consult Date of Consult DATE: 12/22/19 TIME: 10:12 Reason for Consult Reason for Consult: Primary Hyperparathyroidism Identification/Chief Complaint Chief Complaint Presented with abdominal pain, better Now c/o back pain Source Source: Chart review History of Present Illness Reason for Visit: Pt is a 44 yo female with past medical history of kidney stone, presented with complaints of fever, which started last Saturday along with some complaints of right flank pain. Her flank pain started 2 weeks ago and Initially she thought she probably had a kidney stone. She was seen by her primary care physician. Labs were unremarkable. She was started on anti-inflammatory for muscle strain. She continued to have pain with new fevers. She was found to have leukocytosis with bandemia. UA was negative. She denies any dysuria, hematuria, . No nausea, vomiting,diarrhea, abdominal pain. Denies shortness of breath, cough. She underwent CT on 12/18/2019, which showed no acute abnormality throughout the abdomen or pelvis. No nephrolithiasis or collecting system dilatation, hepatic steatosis and additional chronic findings Repeat CT showed a cystic structure in the left adnexa 2.2 cm, probably left ovarian cyst or follicle, bilateral kidneys enhance symmetrically, hepatomegaly with hepatic steatosis. Gallbladder mildly di stended. Renal Consulted for ? Primary Hyperparathyroidism . She denies Hx of any othe known kidney issues besides Kidney stones Past Medical History Past Medical History Seasonal allergies, history of kidney stone, x 2, miscarriages and ulnar nerve surgery, right arm. Family History Family History Non contributory Social History Social History : EtOH, rare. No tobacco, no drug use. , has 3 children. Works at desk job. No ALCOHOL: rare Current Problem List Problem List Problems Medical Problems: (1) Bacteria in urine Status: Acute (2) Intractable abdominal pain Status: Acute (3) Leukocytosis Status: Acute Current Medications Current Medications Current Medications Metoclopramide HCl (Reglan Vial) 10 mg 1X ONCE IVP Last administered on 12/18/19at 23:51; Start 12/18/19 at 23:45; Stop 12/18/19 at 23:46; Status DC Morphine Sulfate (Morphine Sulfate) 4 mg 1X ONCE IV Last administered on 12/18/19at 23:51; Start 12/18/19 at 23:45; Stop 12/18/19 at 23:46; Status DC Ringer's Solution 1,000 ml @ 1,000 mls/hr 1X ONCE IV Last administered on 12/19/19at 01:46; Start 12/19/19 at 01:00; Stop 12/19/19 at 01:59; Status DC Ringer's Solution 1,000 ml @ 150 mls/hr Q6H40M IV Last administered on 12/19/19at 22:00; Start 12/19/19 at 02:00; Stop 12/20/19 at 01:59; Status DC Ceftriaxone Sodium (Rocephin) 1 gm 1X ONCE IVP Last administered on 12/19/19 03:05; Start 12/19/19 at 02:30; Stop 12/19/19 at 02:31; Status DC Morphine Sulfate (Morphine Sulfate) 4 mg PRN Q2HR PRN IV SEVERE PAIN 7-10 Last administered on 12/19/19at 21:59; Start 12/19/19 at 02:15; Stop 12/20/19 at 00:06; Status DC Metoclopramide HCl (Reglan Vial) 10 mg TID PRN PRN IVP NAUSEA/VOMITING Last administered on 12/21/19at 23:19; Start 12/19/19 at 02:15 Acetaminophen/ Hydrocodone Bitart (Lortab 5/325) 1 tab PRN Q4HRS PRN PO MILD TO MODERATE PAIN Last administered on 12/22/19at 06:32; Start 12/19/19 at 13:00 Lidocaine (Lidoderm) 1 patch DAILY TD Last administered on 12/22/19at 09:43; Start 12/20/19 at 09:00 Miscellaneous (Lidoderm Patch Removal) 1 ea QHS MC Last administered on 12/21/19at 21:00; Start 12/20/19 at 21:00 Enoxaparin Sodium (Lovenox 40mg Syringe) 40 mg Q24H SQ Last administered on 12/20/19 09:07; Start 12/20/19 at 09:00; Stop 12/20/19 at 15:01; Status DC Famotidine (Pepcid) 20 mg BID PO Last administered on 12/22/19 09:42; Start 12/19/19 at 21:00 Meloxicam (Mobic) 15 mg DAILY PO Last administered on 12/22/19 09:43; Start 12/20/19 at 09:00 Montelukast Sodium (Singulair) 10 mg QHS PO Last administered on 12/21/19at 22:33; Start 12/19/19 at 21:00 Alprazolam (Xanax) 0.25 mg PRN Q8HRS PRN PO ANXIETY / AGITATION Last administered on 12/21/19at 23:47; Start 12/19/19 at 22:00 Piperacillin Sod/ Tazobactam Sod 3.375 gm/Sodium Chloride 50 ml @ 100 mls/hr Q6HRS IV Last administered on 12/22/19at 06:32; Start 12/20/19 at 01:00 Acetaminophen (Tylenol) 650 mg PRN Q6HRS PRN PO FEVER > 100.3'F Last administered on 12/21/19at 23:20; Start 12/20/19 at 00:15 Morphine Sulfate (Morphine Sulfate) 4 mg PRN Q2HR PRN IV SEVERE PAIN 7-10 Last administered on 12/20/19at 21:40; Start 12/20/19 at 00:15 Lactobacillus Rhamnosus (Culturelle) 1 cap BID PO Last administered on 12/22/19at 09:42; Start 12/20/19 at 21:00 Iohexol (Omnipaque 300 Mg/ml) 75 ml 1X ONCE IV Last administered on 12/20/19at 14:30; Start 12/20/19 at 14:30; Stop 12/20/19 at 14:31; Status DC Iohexol (Omnipaque 240 Mg/ml) 50 ml 1X ONCE PO Last administered on 12/20/19at 14:30; Start 12/20/19 at 14:30; Stop 12/20/19 at 14:31; Status DC Enoxaparin Sodium (Lovenox 60mg Syringe) 60 mg BID SQ Last administered on 12/21/19at 22:33; Start 12/20/19 at 21:00; Stop 12/22/19 at 08:03; Status DC Vitamin D (Vitamin D3) 5,000 unit DAILY PO Last administered on 12/22/19at 09:42; Start 12/21/19 at 12:30 Ketorolac Tromethamine (Toradol 30mg Vial) 30 mg PRN Q6HRS PRN IVP PAIN; Start 12/21/19 at 12:30; Stop 12/26/19 at 12:29 Doxycycline Hyclate (Vibra-Tab) 100 mg BID PO Last administered on 12/22/19at 0 9:42; Start 12/21/19 at 21:00 Potassium Phosphate 13.6 mmol/Sodium Chloride 254.5333 ml @ 127.... Q2H IV Last administered on 12/21/19at 20:20; Start 12/21/19 at 15:00; Stop 12/21/19 at 18:59; Status DC Active Scripts Active Percocet 5-325 Mg Tablet (Oxycodone/Acetaminophen) 1 Each Tablet 1-2 Each PO Q6HRS PRN pain Promethazine Hcl 25 Mg Tablet 1 Tab PO PRN Q6HRS PRN Ciprofloxacin Hcl 500 Mg Tablet 1 Tab PO BID Allergies Allergies: Coded Allergies: benzonatate (Verified Allergy, Intermediate, 12/19/19) clarithromycin (Verified Allergy, Intermediate, 12/19/19) erythromycin base (Verified Allergy, Intermediate, 12/19/19) ondansetron (Verified Allergy, Intermediate, 12/19/19) I S O L A T I O N *CONTACT* (Verified Allergy, Unknown, 11/20/17) ESBL codeine (Verified Adverse Reaction, Intermediate, FEELS LIKE SHE IS ON SPEED, 11/17/17) ROS Review of System As per HPI, rest of the ROS is negative Physical Exam Physical Exam GENERAL: NAD HEENT: Normocephalic, atraumatic. Anicteric. OM moist NECK: Supple. LUNGS: CTA, Non labored HEART: S1, S2. No gallops or murmurs. ABDOMEN: Soft, nontender, nondistended. No rebound, no guarding. EXTREMITIES: No edema, no cyanosis. DERMATOLOGIC: Warm, dry. No generalized rash. NEUROLOGIC: Alert and oriented x 3, grossly nonfocal. PSYCHIATRIC: Cooperative, MUSCULOSKELETAL: No joint swelling, no decrease in range of motion. No Cruz, No SP or CVA tenderness Vital Signs Vital Signs Date Time Temp Pulse Resp B/P (MAP) Pulse Ox O2 Delivery O2 Flow Rate FiO2 12/22/19 07:35 19 95 Room Air 12/22/19 07:00 99.4 104 145/93 (110) 99.4 Assessment & Plan Hyperparathyroidism - Suspect primary Calcium elevated , renal function normal , Hgb Normal PTH scan pending ,May need 24 Hr Ur Calcium for further unger and Possibly Endocrine follow up Vit D def - severe Replace Vit d, Manuel Petty HypoPhosphatemia - Monitor , anticipate improvement with Vit d replacement Hx of Nephrolithiasis - Unremarkable CT ? Passed Stone Back Pain - Consider Imaging , Paraproteinemia unger pending Leukocytosis with bandemia/ Fever- per ID Lt Ovarian cyst on CT. Labs Labs Laboratory Tests Test 12/21/19 13:35 12/22/19 03:15 Sodium Level 134 mmol/L (136-145) 134 mmol/L (136-145) Potassium Level 3.6 mmol/L (3.5-5.1) 3.6 mmol/L (3.5-5.1) Chloride Level 100 mmol/L (98-107) 100 mmol/L (98-107) Carbon Dioxide Level 26 mmol/L (21-32) 26 mmol/L (21-32) Anion Gap 8 (6-14) 8 (6-14) Blood Urea Nitrogen 5 mg/dL (7-20) 8 mg/dL (7-20) Creatinine 0.5 mg/dL (0.6-1.0) 0.7 mg/dL (0.6-1.0) Estimated GFR (Cockcroft-Gault) 135.3 91.8 Glucose Level 106 mg/dL (70-99) 111 mg/dL (70-99) Calcium Level 10.4 mg/dL (8.5-10.1) 10.0 mg/dL (8.5-10.1) Phosphorus Level 1.3 mg/dL (2.6-4.7) C-Reactive Protein, Quantitative 217.1 mg/L (0-3.3) Albumin 3.5 g/dL (3.4-5.0) 3.4 g/dL (3.4-5.0) White Blood Count 13.4 x10^3/uL (4.0-11.0) Red Blood Count 4.49 x10^6/uL (3.50-5.40) Hemoglobin 13.4 g/dL (12.0-15.5) Hematocrit 40.0 % (36.0-47.0) Mean Corpuscular Volume 89 fL (79-100) Mean Corpuscular Hemoglobin 30 pg (25-35) Mean Corpuscular Hemoglobin Concent 33 g/dL (31-37) Red Cell Distribution Width 14.5 % (11.5-14.5) Platelet Count 64 x10^3/uL (140-400) Neutrophils (%) (Auto) 66 % (31-73) Lymphocytes (%) (Auto) 14 % (24-48) Monocytes (%) (Auto) 19 % (0-9) Eosinophils (%) (Auto) 0 % (0-3) Basophils (%) (Auto) 1 % (0-3) Neutrophils # (Auto) 8.8 x10^3/uL (1.8-7.7) Lymphocytes # (Auto) 1.9 x10^3/uL (1.0-4.8) Monocytes # (Auto) 2.6 x10^3/uL (0.0-1.1) Eosinophils # (Auto) 0.0 x10^3/uL (0.0-0.7) Basophils # (Auto) 0.1 x10^3/uL (0.0-0.2) Segmented Neutrophils % 59 % (35-66) Band Neutrophils % 7 % (0-9) Lymphocytes % 12 % (24-48) Monocytes % 21 % (0-10) Metamyelocytes % 1 % (0-0) Platelet Estimate Decreased (ADEQUATE) Polychromasia Slight BUN/Creatinine Ratio 11 (6-20) Total Bilirubin 1.3 mg/dL (0.2-1.0) Aspartate Amino Transf (AST/SGOT) 55 U/L (15-37) Alanine Aminotransferase (ALT/SGPT) 41 U/L (14-59) Alkaline Phosphatase 155 U/L (46-116) Total Protein 7.4 g/dL (6.4-8.2) Albumin/Globulin Ratio 0.9 (1.0-1.7) Laboratory Tests Test 12/21/19 13:35 12/22/19 03:15 Sodium Level 134 mmol/L (136-145) 134 mmol/L (136-145) Potassium Level 3.6 mmol/L (3.5-5.1) 3.6 mmol/L (3.5-5.1) Chloride Level 100 mmol/L (98-107) 100 mmol/L (98-107) Carbon Dioxide Level 26 mmol/L (21-32) 26 mmol/L (21-32) Anion Gap 8 (6-14) 8 (6-14) Blood Urea Nitrogen 5 mg/dL (7-20) 8 mg/dL (7-20) Creatinine 0.5 mg/dL (0.6-1.0) 0.7 mg/dL (0.6-1.0) Estimated GFR (Cockcroft-Gault) 135.3 91.8 Glucose Level 106 mg/dL (70-99) 111 mg/dL (70-99) Calcium Level 10.4 mg/dL (8.5-10.1) 10.0 mg/dL (8.5-10.1) Phosphorus Level 1.3 mg/dL (2.6-4.7) C-Reactive Protein, Quantitative 217.1 mg/L (0-3.3) Albumin 3.5 g/dL (3.4-5.0) 3.4 g/dL (3.4-5.0) White Blood Count 13.4 x10^3/uL (4.0-11.0) Red Blood Count 4.49 x10^6/uL (3.50-5.40) Hemoglobin 13.4 g/dL (12.0-15.5) Hematocrit 40.0 % (36.0-47.0) Mean Corpuscular Volume 89 fL (79-100) Mean Corpuscular Hemoglobin 30 pg (25-35) Mean Corpuscular Hemoglobin Concent 33 g/dL (31-37) Red Cell Distribution Width 14.5 % (11.5-14.5) Platelet Count 64 x10^3/uL (140-400) Neutrophils (%) (Auto) 66 % (31-73) Lymphocytes (%) (Auto) 14 % (24-48) Monocytes (%) (Auto) 19 % (0-9) Eosinophils (%) (Auto) 0 % (0-3) Basophils (%) (Auto) 1 % (0-3) Neutrophils # (Auto) 8.8 x10^3/uL (1.8-7.7) Lymphocytes # (Auto) 1.9 x10^3/uL (1.0-4.8) Monocytes # (Auto) 2.6 x10^3/uL (0.0-1.1) Eosinophils # (Auto) 0.0 x10^3/uL (0.0-0.7) Basophils # (Auto) 0.1 x10^3/uL (0.0-0.2) Segmented Neutrophils % 59 % (35-66) Band Neutrophils % 7 % (0-9) Lymphocytes % 12 % (24-48) Monocytes % 21 % (0-10) Metamyelocytes % 1 % (0-0) Platelet Estimate Decreased (ADEQUATE) Polychromasia Slight BUN/Creatinine Ratio 11 (6-20) Total Bilirubin 1.3 mg/dL (0.2-1.0) Aspartate Amino Transf (AST/SGOT) 55 U/L (15-37) Alanine Aminotransferase (ALT/SGPT) 41 U/L (14-59) Alkaline Phosphatase 155 U/L (46-116) Total Protein 7.4 g/dL (6.4-8.2) Albumin/Globulin Ratio 0.9 (1.0-1.7) Review All relevant outside records, renal labs, imaging studies, telemetry/EKG's were reviewed. LALITA BETTENCOURT MD Dec 22, 2019 10:18
[2019-12-22 11:00] VITALS: BP 124/75
--- NOTE | 2019-12-22 12:35 | PDOC ---
Infectious Disease Note Subjective: Subjective Patient continues to have back pain Fever pattern improved None in last 24 hours Had nausea and vomiting earlier No symptoms No abdominal or flank pain or shortness of breath or cough Denies any headache Denies any chills Vital Signs: Vital Signs Vital Signs Date Time Temp Pulse Resp B/P (MAP) Pulse Ox O2 Delivery O2 Flow Rate FiO2 12/22/19 11:00 98.7 104 18 124/75 (91) 95 Room Air 98.7 Physical Exam: PHYSICAL EXAM GENERAL: Alert, oriented x 3 female, sitting upright in chair in no acute distress, comfortable HEENT: Normocephalic, atraumatic. Anicteric. No thrush. NECK: Supple. No JVD. LUNGS: Clear bilaterally. No wheezing. HEART: S1, S2. No gallops or murmurs. ABDOMEN: Soft, nontender, nondistended. No rebound, no guarding. EXTREMITIES: No edema, no cyanosis. DERMATOLOGIC: Warm, dry. No generalized rash. NEUROLOGIC: Alert and oriented x 3, grossly nonfocal. PSYCHIATRIC: Cooperative, appropriate mood and affect. MUSCULOSKELETAL: No joint swelling, no decrease in range of motion. Previous scars well-healed Medications: Inpatient Meds: Current Medications Medications (Trade) Dose Ordered Sig/Kaci Start Time Stop Time Status Last Admin Dose Admin Acetaminophen (Tylenol) 650 mg PRN Q6HRS PRN 12/20/19 00:15 12/21/19 23:20 650 MG Acetaminophen/ Hydrocodone Bitart (Lortab 5/325) 1 tab PRN Q4HRS PRN 12/19/19 13:00 12/22/19 06:32 1 TAB Alprazolam (Xanax) 0.25 mg PRN Q8HRS PRN 12/19/19 22:00 12/21/19 23:47 0.25 MG Ceftriaxone Sodium (Rocephin) 1 gm 1X ONCE 12/19/19 02:30 12/19/19 02:31 DC 12/19/19 03:05 1 GM Doxycycline Hyclate (Vibra-Tab) 100 mg BID 12/21/19 21:00 12/22/19 09:42 100 MG Enoxaparin Sodium (Lovenox 40mg Syringe) 40 mg Q24H 12/20/19 09:00 12/20/19 15:01 DC 12/20/19 09:07 40 MG Enoxaparin Sodium (Lovenox 60mg Syringe) 60 mg BID 12/20/19 21:00 12/22/19 08:03 DC 12/21/19 22:33 60 MG Famotidine (Pepcid) 20 mg BID 12/19/19 21:00 12/22/19 09:42 20 MG Iohexol (Omnipaque 240 Mg/ml) 50 ml 1X ONCE 12/20/19 14:30 12/20/19 14:31 DC 12/20/19 14:30 50 ML Iohexol (Omnipaque 300 Mg/ml) 75 ml 1X ONCE 12/20/19 14:30 12/20/19 14:31 DC 12/20/19 14:30 75 ML Ketorolac Tromethamine (Toradol 30mg Vial) 30 mg PRN Q6HRS PRN 12/21/19 12:30 12/26/19 12:29 Lactobacillus Rhamnosus (Culturelle) 1 cap BID 12/20/19 21:00 12/22/19 09:42 1 CAP Lidocaine (Lidoderm) 1 patch DAILY 12/20/19 09:00 12/22/19 09:43 1 PATCH Lorazepam (Ativan Inj) 2 mg PRN Q5MIN PRN 12/22/19 11:30 Meloxicam (Mobic) 15 mg DAILY 12/20/19 09:00 12/22/19 09:43 15 MG Metoclopramide HCl (Reglan Vial) 10 mg TID PRN PRN 12/19/19 02:15 12/21/19 23:19 10 MG Miscellaneous (Lidoderm Patch Removal) 1 ea QHS 12/20/19 21:00 12/21/19 21:00 1 EA Montelukast Sodium (Singulair) 10 mg QHS 12/19/19 21:00 12/21/19 22:33 10 MG Morphine Sulfate (Morphine Sulfate) 4 mg PRN Q2HR PRN 12/20/19 00:15 12/20/19 21:40 4 MG Piperacillin Sod/ Tazobactam Sod 3.375 gm/Sodium Chloride 50 ml @ 100 mls/hr Q6HRS 12/20/19 01:00 12/22/19 06:32 100 MLS/HR Potassium Phosphate 13.6 mmol/Sodium Chloride 254.5333 ml @ 127.... Q2H 12/21/19 15:00 12/21/19 18:59 DC 12/21/19 20:20 127.267 MLS/HR Ringer's Solution 1,000 ml @ 150 mls/hr Q6H40M 12/19/19 02:00 12/20/19 01:59 DC 12/19/19 22:00 150 MLS/HR Vitamin D (Vitamin D3) 5,000 unit DAILY 12/21/19 12:30 12/22/19 09:42 5,000 UNIT Labs: Lab Laboratory Tests Test 12/21/19 13:35 12/22/19 03:15 Sodium Level 134 mmol/L (136-145) 134 mmol/L (136-145) Potassium Level 3.6 mmol/L (3.5-5.1) 3.6 mmol/L (3.5-5.1) Chloride Level 100 mmol/L (98-107) 100 mmol/L (98-107) Carbon Dioxide Level 26 mmol/L (21-32) 26 mmol/L (21-32) Anion Gap 8 (6-14) 8 (6-14) Blood Urea Nitrogen 5 mg/dL (7-20) 8 mg/dL (7-20) Creatinine 0.5 mg/dL (0.6-1.0) 0.7 mg/dL (0.6-1.0) Estimated GFR (Cockcroft-Gault) 135.3 91.8 Glucose Level 106 mg/dL (70-99) 111 mg/dL (70-99) Calcium Level 10.4 mg/dL (8.5-10.1) 10.0 mg/dL (8.5-10.1) Phosphorus Level 1.3 mg/dL (2.6-4.7) C-Reactive Protein, Quantitative 217.1 mg/L (0-3.3) Albumin 3.5 g/dL (3.4-5.0) 3.4 g/dL (3.4-5.0) White Blood Count 13.4 x10^3/uL (4.0-11.0) Red Blood Count 4.49 x10^6/uL (3.50-5.40) Hemoglobin 13.4 g/dL (12.0-15.5) Hematocrit 40.0 % (36.0-47.0) Mean Corpuscular Volume 89 fL (79-100) Mean Corpuscular Hemoglobin 30 pg (25-35) Mean Corpuscular Hemoglobin Concent 33 g/dL (31-37) Red Cell Distribution Width 14.5 % (11.5-14.5) Platelet Count 64 x10^3/uL (140-400) Neutrophils (%) (Auto) 66 % (31-73) Lymphocytes (%) (Auto) 14 % (24-48) Monocytes (%) (Auto) 19 % (0-9) Eosinophils (%) (Auto) 0 % (0-3) Basophils (%) (Auto) 1 % (0-3) Neutrophils # (Auto) 8.8 x10^3/uL (1.8-7.7) Lymphocytes # (Auto) 1.9 x10^3/uL (1.0-4.8) Monocytes # (Auto) 2.6 x10^3/uL (0.0-1.1) Eosinophils # (Auto) 0.0 x10^3/uL (0.0-0.7) Basophils # (Auto) 0.1 x10^3/uL (0.0-0.2) Segmented Neutrophils % 59 % (35-66) Band Neutrophils % 7 % (0-9) Lymphocytes % 12 % (24-48) Monocytes % 21 % (0-10) Metamyelocytes % 1 % (0-0) Platelet Estimate Decreased (ADEQUATE) Polychromasia Slight BUN/Creatinine Ratio 11 (6-20) Total Bilirubin 1.3 mg/dL (0.2-1.0) Aspartate Amino Transf (AST/SGOT) 55 U/L (15-37) Alanine Aminotransferase (ALT/SGPT) 41 U/L (14-59) Alkaline Phosphatase 155 U/L (46-116) Total Protein 7.4 g/dL (6.4-8.2) Albumin/Globulin Ratio 0.9 (1.0-1.7) Objective: Assessment: 1. Leukocytosis with bandemia, etiology unclear at this time 2. Fever. pattern improved 3. Back pain. 4. History of kidney stone. The patient may have passed a kidney stone with residual findings. No localizing findings at this time. 5. Morbid obesity. 6. Asthma with seasonal allergies. 7. Lt Ovarian cyst on CT. Plan: Plan of Care Continue Zosyn/ doxycycline. f/u urine for GC and chlamydia. Trend WBC and fever pattern. F/U MRI imaging of her back Continue supportive care. D/W CHITRA Cui MD Dec 22, 2019 12:35
[2019-12-22] MEDS: METOCLOPRAMIDE HCL 10 MG/2 ML VIAL. IVP PRN ×2 (13:30→21:36)
[2019-12-22 15:00] VITALS: BP 142/84
--- NOTE | 2019-12-22 15:08 | RAD ---
Nuclear Medicine Parathyroid Scan and SPECT Imaging: History: Hyperparathyroidism. Technique: 23 mCi Tc-99m sestamibi was administered intravenously and spot views were obtained on a gamma camera with early and delayed imaging. Nuclear Medicine Parathyroid Scan: Findings/ impression: There is a focal radiotracer uptake identified in the inferior aspect of the left lobe of the thyroid gland just below the marker placement on the delayed images suspicious for parathyroid adenoma. Electronically signed by: Nick Myers MD (12/22/2019 3:05 PM) [id number]
[2019-12-22 15:12] LABS: KAPPA FREE 26.4 mg/L (3.3-19.4); KAPPA LAMBDA RATIO 1.73 (0.26-1.65); LAMBDA FREE 15.3 mg/L (5.7-26.3)
[2019-12-22 19:01] VITALS: BP 137/83
--- NOTE | 2019-12-22 19:11 | CONS ---
DATE OF CONSULTATION: 12/22/2019 ATTENDING PHYSICIAN: Dr. Arias. REASON FOR CONSULTATION: The patient was seen at the request of Dr. Petty for rehab evaluation. HISTORY OF PRESENT ILLNESS: This is a 44-year-old female, mainly works at desk level. The patient with past medical history of kidney stone about a year ago, also had 8 miscarriages and D and Cs in the past, came with the right flank pain for about a month, worsened in the last few days prior to the hospitalization on 12/19/2019, sharp, stays in her lower back and radiates to her right lower quadrant of the abdomen. Denies any nausea, vomiting or changes in her bowel habits. The patient has been taking muscle relaxants and also taking baclofen, Meloxicam 15 mg and ibuprofen in between on as needed basis. She denies any tingling, numbness sensation in the extremities or any trouble with bladder control. The patient had right ulnar nerve transposition in the past. ALLERGIES: THE PATIENT IS KNOWN ALLERGIC TO BENZONATATE, CLARITHROMYCIN, CODEINE, ERYTHROMYCIN BASE, AND ONDANSETRON. PHYSICAL EXAMINATION: The patient on physical examination today revealed a middle-aged female. She is alert, oriented to time, place, person and circumstance and follows commands appropriately, moves all 4 extremities voluntarily where she had 4+/5 grade muscle strength. Deep tendon reflexes are decreased overall. She had equal perception of touch and pinprick sensation bilaterally. She had painful limited movements of her lumbar spine without any significant paraspinal muscle spasm and tenderness to palpation over lumbar paraspinal muscles extending over to sacroiliac joint area, right side more than left side. Straight leg raising test is negative bilaterally. She had pain free range of motion of both hip and knee joints. She is independent with bed mobility. I have not tested her transfers or ambulation skills at this time. Her skin is intact. ASSESSMENT: Elderly female with chronic lower back pain with recent exacerbation, most probably from degenerative disk disease. No clinical evidence of ongoing lumbar radiculopathy. RECOMMENDATIONS: I have reviewed with her a home program of physical modalities, trigger point massage and relax stretching exercises to her lower back muscles and proper body mechanics, home when medically stable with outpatient followup to consider a course of outpatient physical therapy or injections if the pain persists. Dr. Petty, I appreciate asking me to participate in the care of this interesting patient. I will be glad to follow her with you as needed for her rehabilitation. CHER MALDONADO MD DR: FAISAL/jayne JOB#: [id number] / [id number]
[2019-12-22] MEDS: PATCH REMOVAL. MC SCH (21:00)
[2019-12-22] MEDS: MONTELUKAST SODIUM 10 MG TABLET. PO SCH (21:27)
[2019-12-23] VITALS (7 sets, daily range): BP systolic 117–158; BP diastolic 79–89
[2019-12-23] MEDS: PIPERACILLIN/TAZOBACTAM 3.375 GM in IV NORMAL SALINE 50ML 50 ML IV SCH ×3 (00:27→11:45)
[2019-12-23 05:57] LABS: ALBUMIN 3.1 g/dL (3.4-5.0); CALCIUM 9.7 mg/dL (8.5-10.1); CREATININE 0.7 mg/dL (0.6-1.0); GFR 91.8; PHOSPHORUS 1.7 mg/dL (2.6-4.7); POTASSIUM 3.6 mmol/L (3.5-5.1)
[2019-12-23 06:06] LABS: BASO % 1 % (0-3); EOS % 0 % (0-3); HEMATOCRIT 37.5 % (36.0-47.0); HEMOGLOBIN 12.8 g/dL (12.0-15.5); LYMPH # 2.5 x10^3/uL (1.0-4.8); LYMPH % 26 % (24-48); MEAN CORPUSCULAR HEMOGLOBIN 30 pg (25-35); MEAN CORPUSCULAR HGB CONC 34 g/dL (31-37); MEAN CORPUSCULAR VOLUME 89 fL (79-100); MONO # 1.6 x10^3/uL (0.0-1.1); MONO % 16 % (0-9); NEUT # 5.5 x10^3/uL (1.8-7.7); NEUT % 58 % (31-73); RED BLOOD COUNT 4.22 x10^6/uL (3.50-5.40); RED CELL DISTRIBUTION WIDTH 14.6 % (11.5-14.5); WHITE BLOOD COUNT 9.5 x10^3/uL (4.0-11.0)
[2019-12-23] MEDS: HYDROcodone/APAP 5/325MG 1 TAB TABLET PO PRN ×3 (06:08→21:16)
[2019-12-23 07:38] LABS: PLATELET COUNT 60 x10^3/uL (140-400)
--- NOTE | 2019-12-23 08:36 | PDOC2 ---
CONSULT Date of Consult Date of Consult DATE: 12/23/19 TIME: 08:24 Reason for Consult Reason for Consult: Thrombocytopenia Referring Physician Referring Physician: Dr. Petty Identification/Chief Complaint Chief Complaint Back pain Source Source: Chart review, Patient History of Present Illness Reason for Visit: Kaylyn Vazquez is a 44-year-old female who presents with back pain. Patient reports noticing pain in the back/left flank that appeared 2 to 3 days ago. She notes that pain radiates from the back to the left lower quadrant/groin area. She reports associated dysuria. Patient reports a history of nephrolithiasis and notes that the pain may be similar to that she has previously experienced while passing kidney stones. She has not noticed a nephrolith in her urine recently. She reports that the pain has improved since her hospitalization. She reports low-grade fevers. She denies cough, shortness of breath, chest pain, lower extremity edema, headache, blurred vision, nausea, vomiting, diarrhea. She has been admitted to the hospital and has been started on empiric Zosyn due to findings of leukocytosis on her initial lab work. And evaluation for infectious process and etiology of her abdominal pain with CT of the abdomen has been unremarkable. CT did show hepatic steatosis/hepatomegaly. Patient does not recall a history of these findings. She does report a history of multiple losses. She notes that this was attributed to cervical insufficiency. She does have 1 successful . She denies a personal or family history of deep venous thrombosis or arterial thrombosis. She denies a history of coronary artery disease or stroke. Following her hospitalization, she has been found to have gradually declining platelet count with falling platelets from a baseline normal count to 60 today. Lovenox deep venous thrombosis prophylaxis has been on hold since then. HIT antibody was requested by Dr. Petty. Patient denies new onset/changed abdominal pain or lower extremity edema during this hospitalization. She denies hospitalization or exposure to heparin in the last 6 months. Social History No ALCOHOL: rare Current Problem List Problem List Problems Medical Problems: (1) Bacteria in urine Status: Acute (2) Intractable abdominal pain Status: Acute (3) Leukocytosis Status: Acute Current Medications Current Medications Current Medications Metoclopramide HCl (Reglan Vial) 10 mg 1X ONCE IVP Last administered on 12/18/19at 23:51; Start 12/18/19 at 23:45; Stop 12/18/19 at 23:46; Status DC Morphine Sulfate (Morphine Sulfate) 4 mg 1X ONCE IV Last administered on 12/18/19at 23:51; Start 12/18/19 at 23:45; Stop 12/18/19 at 23:46; Status DC Ringer's Solution 1,000 ml @ 1,000 mls/hr 1X ONCE IV Last administered on 12/19/19at 01:46; Start 12/19/19 at 01:00; Stop 12/19/19 at 01:59; Status DC Ringer's Solution 1,000 ml @ 150 mls/hr Q6H40M IV Last administered on 12/19/19at 22:00; Start 12/19/19 at 02:00; Stop 12/20/19 at 01:59; Status DC Ceftriaxone Sodium (Rocephin) 1 gm 1X ONCE IVP Last administered on 12/19/19at 03:05; Start 12/19/19 at 02:30; Stop 12/19/19 at 02:31; Status DC Morphine Sulfate (Morphine Sulfate) 4 mg PRN Q2HR PRN IV SEVERE PAIN 7-10 Last administered on 12/19/19at 21:59; Start 12/19/19 at 02:15; Stop 12/20/19 at 00:06; Status DC Metoclopramide HCl (Reglan Vial) 10 mg TID PRN PRN IVP NAUSEA/VOMITING Last administered on 12/22/19at 21:36; Start 12/19/19 at 02:15 Acetaminophen/ Hydrocodone Bitart (Lortab 5/325) 1 tab PRN Q4HRS PRN PO MILD TO MODERATE PAIN Last administered on 12/23/19at 06:08; Start 12/19/19 at 13:00 Lidocaine (Lidoderm) 1 patch DAILY TD Last administered on 12/22/19at 09:43; Start 12/20/19 at 09:00 Miscellaneous (Lidoderm Patch Removal) 1 ea QHS MC Last administered on 12/21/19at 21:00; Start 12/20/19 at 21:00 Enoxaparin Sodium (Lovenox 40mg Syringe) 40 mg Q24H SQ Last administered on 12/20/19at 09:07; Start 12/20/19 at 09:00; Stop 12/20/19 at 15:01; Status DC Famotidine (Pepcid) 20 mg BID PO Last administered on 12/22/19 21:27; Start 12/19/19 at 21:00 Meloxicam (Mobic) 15 mg DAILY PO Last administered on 12/22/19at 09:43; Start 12/20/19 at 09:00 Montelukast Sodium (Singulair) 10 mg QHS PO Last administered on 12/22/19at 21:27; Start 12/19/19 at 21:00 Alprazolam (Xanax) 0.25 mg PRN Q8HRS PRN PO ANXIETY / AGITATION Last a dministered on 12/21/19at 23:47; Start 12/19/19 at 22:00 Piperacillin Sod/ Tazobactam Sod 3.375 gm/Sodium Chloride 50 ml @ 100 mls/hr Q6HRS IV Last administered on 12/23/19 06:03; Start 12/20/19 at 01:00 Acetaminophen (Tylenol) 650 mg PRN Q6HRS PRN PO FEVER > 100.3'F Last administered on 12/21/19at 23:20; Start 12/20/19 at 00:15 Morphine Sulfate (Morphine Sulfate) 4 mg PRN Q2HR PRN IV SEVERE PAIN 7-10 Last administered on 12/20/19at 21:40; Start 12/20/19 at 00:15 Lactobacillus Rhamnosus (Culturelle) 1 cap BID PO Last administered on 12/22/19 21:27; Start 12/20/19 at 21:00 Iohexol (Omnipaque 300 Mg/ml) 75 ml 1X ONCE IV Last administered on 12/20/19at 14:30; Start 12/20/19 at 14:30; Stop 12/20/19 at 14:31; Status DC Iohexol (Omnipaque 240 Mg/ml) 50 ml 1X ONCE PO Last administered on 12/20/19at 14:30; Start 12/20/19 at 14:30; Stop 12/20/19 at 14:31; Status DC Enoxaparin Sodium (Lovenox 60mg Syringe) 60 mg BID SQ Last administered on 12/21/19at 22:33; Start 12/20/19 at 21:00; Stop 12/22/19 at 08:03; Status DC Vitamin D (Vitamin D3) 5,000 unit DAILY PO Last administered on 12/22/19at 09:42; Start 12/21/19 at 12:30 Ketorolac Tromethamine (Toradol 30mg Vial) 30 mg PRN Q6HRS PRN IVP PAIN; Start 12/21/19 at 12:30; Stop 12/26/19 at 12:29 Doxycycline Hyclate (Vibra-Tab) 100 mg BID PO Last administered on 12/22/19at 21:28; Start 12/21/19 at 21:00 Potassium Phosphate 13.6 mmol/Sodium Chloride 254.5333 ml @ 127.... Q2H IV Last administered on 12/21/19at 20:20; Start 12/21/19 at 15:00; Stop 12/21/19 at 18:59; Status DC Lorazepam (Ativan Inj) 2 mg PRN Q5MIN PRN IVP ANXIETY / AGITATION; Start 12/22/19 at 11:30 Active Scripts Active Percocet 5-325 Mg Tablet (Oxycodone/Acetaminophen) 1 Each Tablet 1-2 Each PO Q6HRS PRN pain Promethazine Hcl 25 Mg Tablet 1 Tab PO PRN Q6HRS PRN Ciprofloxacin Hcl 500 Mg Tablet 1 Tab PO BID Allergies Allergies: Coded Allergies: benzonatate (Verified Allergy, Intermediate, 12/19/19) clarithromycin (Verified Allergy, Intermediate, 12/19/19) erythromycin base (Verified Allergy, Intermediate, 12/19/19) ondansetron (Verified Allergy, Intermediate, 12/19/19) I S O L A T I O N *CONTACT* (Verified Allergy, Unknown, 11/20/17) ESBL codeine (Verified Adverse Reaction, Intermediate, FEELS LIKE SHE IS ON SPEED, 11/17/17) ROS General: No: Chills, Night Sweats PSYCHOLOGICAL ROS: No: Anxiety, Behavioral Disorder Eyes: No Blurry vision, No Decreased vision HEENT: No: Heacaches, Visual Changes ALLERGY AND IMMUNOLOGY: No: Nasal Congestion, Post Nasal Drip Hematological and Lymphatic: No: Brusing, Night Sweats ENDOCRINE: No: Mood Swings, Palpitations Breast: No New/Changing Breast Lumps, No Nipple changes Respiratory: No: Cough, Hemoptysis Cardiovascular: No Chest Pain, No Palpitations Gastrointestinal: Yes Abdominal Pain; No Nausea, No Vomiting, No Diarrhea, No Constipation, No Melena Genitourinary: YES Dysuria, YES Flank Pain; No Hematuria Musculoskeletal: No Joint Pain Neurological: No Behavorial Changes Skin: No Dry Skin, No Eczema Physical Exam General: Alert, Oriented X3 HEENT: Atraumatic Lungs: Clear to auscultation Heart: Regular rate, Normal S1, Normal S2 Abdomen: Normal bowel sounds, Soft Extremities: No clubbing Skin: No rashes Neuro: Normal gait MUSCULOSKELETAL: No deformity, No swelling Vitals VITALS Vital Signs Date Time Temp Pulse Resp B/P (MAP) Pulse Ox O2 Delivery O2 Flow Rate FiO2 12/23/19 07:08 18 Room Air 12/23/19 07:00 98.8 89 144/83 (103) 95 98.8 Labs Labs Laboratory Tests Test 12/21/19 13:35 12/21/19 14:20 12/22/19 03:15 12/22/19 08:40 Sodium Level 134 mmol/L (136-145) 134 mmol/L (136-145) Potassium Level 3.6 mmol/L (3.5-5.1) 3.6 mmol/L (3.5-5.1) Chloride Level 100 mmol/L (98-107) 100 mmol/L (98-107) Carbon Dioxide Level 26 mmol/L (21-32) 26 mmol/L (21-32) Anion Gap 8 (6-14) 8 (6-14) Blood Urea Nitrogen 5 mg/dL (7-20) 8 mg/dL (7-20) Creatinine 0.5 mg/dL (0.6-1.0) 0.7 mg/dL (0.6-1.0) Estimated GFR (Cockcroft-Gault) 135.3 91.8 Glucose Level 106 mg/dL (70-99) 111 mg/dL (70-99) Calcium Level 10.4 mg/dL (8.5-10.1) 10.0 mg/dL (8.5-10.1) Phosphorus Level 1.3 mg/dL (2.6-4.7) C-Reactive Protein, Quantitative 217.1 mg/L (0-3.3) Albumin 3.5 g/dL (3.4-5.0) 3.4 g/dL (3.4-5.0) Immunoglobulin [place]/Lambda Ratio 1.73 (0.26-1.65) Free [place] Light Chains 26.4 mg/L (3.3-19.4) Free Lambda Light Chains 15.3 mg/L (5.7-26.3) Urine Chlamydia DNA (PCR) Negative (Negative) Neisseria gonorrhoeae DNA (PCR) Negative (Negative) White Blood Count 13.4 x10^3/uL (4.0-11.0) Red Blood Count 4.49 x10^6/uL (3.50-5.40) Hemoglobin 13.4 g/dL (12.0-15.5) Hematocrit 40.0 % (36.0-47.0) Mean Corpuscular Volume 89 fL (79-100) Mean Corpuscular Hemoglobin 30 pg (25-35) Mean Corpuscular Hemoglobin Concent 33 g/dL (31-37) Red Cell Distribution Width 14.5 % (11.5-14.5) Platelet Count 64 x10^3/uL (140-400) Neutrophils (%) (Auto) 66 % (31-73) Lymphocytes (%) (Auto) 14 % (24-48) Monocytes (%) (Auto) 19 % (0-9) Eosinophils (%) (Auto) 0 % (0-3) Basophils (%) (Auto) 1 % (0-3) Neutrophils # (Auto) 8.8 x10^3/uL (1.8-7.7) Lymphocytes # (Auto) 1.9 x10^3/uL (1.0-4.8) Monocytes # (Auto) 2.6 x10^3/uL (0.0-1.1) Eosinophils # (Auto) 0.0 x10^3/uL (0.0-0.7) Basophils # (Auto) 0.1 x10^3/uL (0.0-0.2) Segmented Neutrophils % 59 % (35-66) Band Neutrophils % 7 % (0-9) Lymphocytes % 12 % (24-48) Monocytes % 21 % (0-10) Metamyelocytes % 1 % (0-0) Platelet Estimate Decreased (ADEQUATE) Polychromasia Slight BUN/Creatinine Ratio 11 (6-20) Total Bilirubin 1.3 mg/dL (0.2-1.0) Aspartate Amino Transf (AST/SGOT) 55 U/L (15-37) Alanine Aminotransferase (ALT/SGPT) 41 U/L (14-59) Alkaline Phosphatase 155 U/L (46-116) Total Protein 7.4 g/dL (6.4-8.2) Albumin/Globulin Ratio 0.9 (1.0-1.7) Heparin-Induced Platelet Antibody See separate report Test 12/23/19 04:40 White Blood Count 9.5 x10^3/uL (4.0-11.0) Red Blood Count 4.22 x10^6/uL (3.50-5.40) Hemoglobin 12.8 g/dL (12.0-15.5) Hematocrit 37.5 % (36.0-47.0) Mean Corpuscular Volume 89 fL (79-100) Mean Corpuscular Hemoglobin 30 pg (25-35) Mean Corpuscular Hemoglobin Concent 34 g/dL (31-37) Red Cell Distribution Width 14.6 % (11.5-14.5) Platelet Count 60 x10^3/uL (140-400) Neutrophils (%) (Auto) 58 % (31-73) Lymphocytes (%) (Auto) 26 % (24-48) Monocytes (%) (Auto) 16 % (0-9) Eosinophils (%) (Auto) 0 % (0-3) Basophils (%) (Auto) 1 % (0-3) Neutrophils # (Auto) 5.5 x10^3/uL (1.8-7.7) Lymphocytes # (Auto) 2.5 x10^3/uL (1.0-4.8) Monocytes # (Auto) 1.6 x10^3/uL (0.0-1.1) Eosinophils # (Auto) 0.0 x10^3/uL (0.0-0.7) Basophils # (Auto) 0.0 x10^3/uL (0.0-0.2) Sodium Level 140 mmol/L (136-145) Potassium Level 3.6 mmol/L (3.5-5.1) Chloride Level 101 mmol/L (98-107) Carbon Dioxide Level 29 mmol/L (21-32) Anion Gap 10 (6-14) Blood Urea Nitrogen 12 mg/dL (7-20) Creatinine 0.7 mg/dL (0.6-1.0) Estimated GFR (Cockcroft-Gault) 91.8 Glucose Level 98 mg/dL (70-99) Calcium Level 9.7 mg/dL (8.5-10.1) Phosphorus Level 1.7 mg/dL (2.6-4.7) Albumin 3.1 g/dL (3.4-5.0) Laboratory Tests Test 12/22/19 08:40 12/23/19 04:40 Heparin-Induced Platelet Antibody See separate report White Blood Count 9.5 x10^3/uL (4.0-11.0) Red Blood Count 4.22 x10^6/uL (3.50-5.40) Hemoglobin 12.8 g/dL (12.0-15.5) Hematocrit 37.5 % (36.0-47.0) Mean Corpuscular Volume 89 fL (79-100) Mean Corpuscular Hemoglobin 30 pg (25-35) Mean Corpuscular Hemoglobin Concent 34 g/dL (31-37) Red Cell Distribution Width 14.6 % (11.5-14.5) Platelet Count 60 x10^3/uL (140-400) Neutrophils (%) (Auto) 58 % (31-73) Lymphocytes (%) (Auto) 26 % (24-48) Monocytes (%) (Auto) 16 % (0-9) Eosinophils (%) (Auto) 0 % (0-3) Basophils (%) (Auto) 1 % (0-3) Neutrophils # (Auto) 5.5 x10^3/uL (1.8-7.7) Lymphocytes # (Auto) 2.5 x10^3/uL (1.0-4.8) Monocytes # (Auto) 1.6 x10^3/uL (0.0-1.1) Eosinophils # (Auto) 0.0 x10^3/uL (0.0-0.7) Basophils # (Auto) 0.0 x10^3/uL (0.0-0.2) Sodium Level 140 mmol/L (136-145) Potassium Level 3.6 mmol/L (3.5-5.1) Chloride Level 101 mmol/L (98-107) Carbon Dioxide Level 29 mmol/L (21-32) Anion Gap 10 (6-14) Blood Urea Nitrogen 12 mg/dL (7-20) Creatinine 0.7 mg/dL (0.6-1.0) Estimated GFR (Cockcroft-Gault) 91.8 Glucose Level 98 mg/dL (70-99) Calcium Level 9.7 mg/dL (8.5-10.1) Phosphorus Level 1.7 mg/dL (2.6-4.7) Albumin 3.1 g/dL (3.4-5.0) Images Images CT abdomen: 1. Hepatomegaly with hepatic steatosis. 2. A 2.2 cm left ovarian cyst or follicle is identified. Assessment/Plan Assessment/Plan Assessment: Thrombocytopenia, acute Flank pain radiating to the groin Hypercalcemia Hyperphosphatemia Primary hyperparathyroidism with parathyroid adenoma noted on NM scan Hepatomegaly Prediabetes Recommendations: -Reviewed lab trends, radiology and her presenting history. Assessment of probability for heparin-induced thrombocytopenia with 4 T score indicates low probability of HIT (less than 5%) given lack of new thrombosis, possible other causes for thrombocytopenia, acute loss of platelets with no recent exposure. However, will follow up on results of HIT antibody -Continue to hold subcutaneous Lovenox/heparin -We will follow-up on other work-up including SPEP, free kappa lambda light chains but my suspicion for these being the cause for her thrombocytopenia is low -I suspect that thrombocytopenia is secondary to Zosyn. I recommend switching to a different antimicrobial agent. Could consider levofloxacin if UTI coverage is desired. I will defer to Dr. Johnson -Continue evaluation and management of primary hyperparathyroidism per endocrinology -Repeat CBC daily to monitor platelet count. Anticipate rise after discontinuation of Zosyn Thank you for the consult Louis Beckwith MD Medical Oncology/Hematology Ph: [phone] ESTRADA BECKWITH MD Dec 23, 2019 08:36
[2019-12-23] MEDS: LACTOBACILLUS RHAMNOSUS GG 1 CAPSULE. PO SCH ×2 (08:43→21:12)
[2019-12-23] MEDS: CHOLECALCIFEROL (VITAMIN D3) 5,000 UNIT CAPSULE PO SCH (08:44)
[2019-12-23] MEDS: MELOXICAM 7.5 MG TABLET PO SCH (08:44)
[2019-12-23] MEDS: DOXYCYCLINE HYCLATE 100 MG TABLET PO SCH ×2 (08:44→21:12)
[2019-12-23] MEDS: FAMOTIDINE 20 MG TABLET. PO SCH ×2 (08:44→21:12)
[2019-12-23] MEDS: LIDOCAINE (700MG/PATCH) PATCH. TD SCH (08:44)
--- NOTE | 2019-12-23 09:17 | PDOC ---
DATE OF SERVICE DATE: 12/23/19 TIME: 09:17 SUBJECTIVE ROS States her back pain is much better OBJECTIVE Vital Signs Vital Signs Date Time Temp Pulse Resp B/P (MAP) Pulse Ox O2 Delivery O2 Flow Rate FiO2 12/23/19 07:08 18 Room Air 12/23/19 07:00 98.8 89 144/83 (103) 95 98.8 I & 0 Intake and Output 12/23/19 07:00 Intake Total 1350 ml Balance 1350 ml Intake Oral 1250 ml IV Total 100 ml # Voids 2 PHYSICAL EXAM Physical Exam GENERAL: NAD HEENT: Normocephalic, atraumatic. Anicteric. OM moist NECK: Supple. LUNGS: CTA, Non labored HEART: S1, S2. No gallops or murmurs. ABDOMEN: Soft, nontender, nondistended. No rebound, no guarding. EXTREMITIES: No edema, no cyanosis. DERMATOLOGIC: Warm, dry. No generalized rash. NEUROLOGIC: Alert and oriented x 3, grossly nonfocal. PSYCHIATRIC: Cooperative, MUSCULOSKELETAL: No joint swelling, no decrease in range of motion. No Cruz, No SP or CVA tenderness DIAGNOSIS/ASSESSMENT Assessment & Plan Hyperparathyroidism - Suspect primary Calcium elevated at presentation , renal function normal , Hgb Normal PTH scan suspicious of adenoma recommend ENT and Endocrine follow up Vit D def - severe Replace Vit d, Dw Dr Petty HypoPhosphatemia - Monitor , anticipate improvement with Vit d replacement Hx of Nephrolithiasis - Unremarkable CT ? Passed Stone Back Pain - Consider Imaging , Paraproteinemia unger pending Leukocytosis with bandemia/ Fever- per ID Lt Ovarian cyst on CT. COMMENT/RELEVANT DATA Meds Current Medications Medications (Trade) Dose Ordered Sig/Kaci Start Time Stop Time Status Last Admin Dose Admin Acetaminophen (Tylenol) 650 mg PRN Q6HRS PRN 12/20/19 00:15 12/21/19 23:20 650 MG Acetaminophen/ Hydrocodone Bitart (Lortab 5/325) 1 tab PRN Q4HRS PRN 12/19/19 13:00 12/23/19 06:08 1 TAB Alprazolam (Xanax) 0.25 mg PRN Q8HRS PRN 12/19/19 22:00 12/21/19 23:47 0.25 MG Ceftriaxone Sodium (Rocephin) 1 gm 1X ONCE 12/19/19 02:30 12/19/19 02:31 DC 12/19/19 03:05 1 GM Doxycycline Hyclate (Vibra-Tab) 100 mg BID 12/21/19 21:00 12/23/19 08:44 100 MG Enoxaparin Sodium (Lovenox 40mg Syringe) 40 mg Q24H 12/20/19 09:00 12/20/19 15:01 DC 12/20/19 09:07 40 MG Enoxaparin Sodium (Lovenox 60mg Syringe) 60 mg BID 12/20/19 21:00 12/22/19 08:03 DC 12/21/19 22:33 60 MG Famotidine (Pepcid) 20 mg BID 12/19/19 21:00 12/23/19 08:44 20 MG Iohexol (Omnipaque 240 Mg/ml) 50 ml 1X ONCE 12/20/19 14:30 12/20/19 14:31 DC 12/20/19 14:30 50 ML Iohexol (Omnipaque 300 Mg/ml) 75 ml 1X ONCE 12/20/19 14:30 12/20/19 14:31 DC 12/20/19 14:30 75 ML Ketorolac Tromethamine (Toradol 30mg Vial) 30 mg PRN Q6HRS PRN 12/21/19 12:30 12/26/19 12:29 Lactobacillus Rhamnosus (Culturelle) 1 cap BID 12/20/19 21:00 12/23/19 08:43 1 CAP Lidocaine (Lidoderm) 1 patch DAILY 12/20/19 09:00 12/23/19 08:44 1 PATCH Lorazepam (Ativan Inj) 2 mg PRN Q5MIN PRN 12/22/19 11:30 Meloxicam (Mobic) 15 mg DAILY 12/20/19 09:00 12/23/19 08:44 15 MG Metoclopramide HCl (Reglan Vial) 10 mg TID PRN PRN 12/19/19 02:15 12/22/19 21:36 10 MG Miscellaneous (Lidoderm Patch Removal) 1 ea QHS 12/20/19 21:00 12/21/19 21:00 1 EA Montelukast Sodium (Singulair) 10 mg QHS 12/19/19 21:00 12/22/19 21:27 10 MG Morphine Sulfate (Morphine Sulfate) 4 mg PRN Q2HR PRN 12/20/19 00:15 12/20/19 21:40 4 MG Piperacillin Sod/ Tazobactam Sod 3.375 gm/Sodium Chloride 50 ml @ 100 mls/hr Q6HRS 12/20/19 01:00 12/23/19 06:03 100 MLS/HR Potassium Phosphate 13.6 mmol/Sodium Chloride 254.5333 ml @ 127.... Q2H 12/21/19 15:00 12/21/19 18:59 DC 12/21/19 20:20 127.267 MLS/HR Ringer's Solution 1,000 ml @ 150 mls/hr Q6H40M 12/19/19 02:00 12/20/19 01:59 DC 12/19/19 22:00 150 MLS/HR Vitamin D (Vitamin D3) 5,000 unit DAILY 12/21/19 12:30 12/23/19 08:44 5,000 UNIT Lab Laboratory Tests Test 12/23/19 04:40 White Blood Count 9.5 x10^3/uL (4.0-11.0) Red Blood Count 4.22 x10^6/uL (3.50-5.40) Hemoglobin 12.8 g/dL (12.0-15.5) Hematocrit 37.5 % (36.0-47.0) Mean Corpuscular Volume 89 fL (79-100) Mean Corpuscular Hemoglobin 30 pg (25-35) Mean Corpuscular Hemoglobin Concent 34 g/dL (31-37) Red Cell Distribution Width 14.6 % (11.5-14.5) Platelet Count 60 x10^3/uL (140-400) Neutrophils (%) (Auto) 58 % (31-73) Lymphocytes (%) (Auto) 26 % (24-48) Monocytes (%) (Auto) 16 % (0-9) Eosinophils (%) (Auto) 0 % (0-3) Basophils (%) (Auto) 1 % (0-3) Neutrophils # (Auto) 5.5 x10^3/uL (1.8-7.7) Lymphocytes # (Auto) 2.5 x10^3/uL (1.0-4.8) Monocytes # (Auto) 1.6 x10^3/uL (0.0-1.1) Eosinophils # (Auto) 0.0 x10^3/uL (0.0-0.7) Basophils # (Auto) 0.0 x10^3/uL (0.0-0.2) Sodium Level 140 mmol/L (136-145) Potassium Level 3.6 mmol/L (3.5-5.1) Chloride Level 101 mmol/L (98-107) Carbon Dioxide Level 29 mmol/L (21-32) Anion Gap 10 (6-14) Blood Urea Nitrogen 12 mg/dL (7-20) Creatinine 0.7 mg/dL (0.6-1.0) Estimated GFR (Cockcroft-Gault) 91.8 Glucose Level 98 mg/dL (70-99) Calcium Level 9.7 mg/dL (8.5-10.1) Phosphorus Level 1.7 mg/dL (2.6-4.7) Albumin 3.1 g/dL (3.4-5.0) Results All relevant outside records, renal labs, imaging studies, telemetry/EKG's were reviewed. Justicifation of Admission Dx: Justifications for Admission: Justification of Admission Dx: Yes LALITA BETTENCOURT MD Dec 23, 2019 09:17
[2019-12-23] MEDS ORDERED: BUPIVACAINE MPF 0.25% 10 ML VIAL. IJ ONE (10:00)
[2019-12-23] MEDS ORDERED: methylPREDNISolone ACETATE 40 MG/ML VIAL. IM ONE (10:00)
--- NOTE | 2019-12-23 10:25 | PDOC ---
[facility] [facility] PROGRESS NOTE Date of Service DOS: DATE: 12/23/19 TIME: 10:24 Chief Complaint Chief Complaint A/P: Acute abdominal pain with unclear etiology Back pain - focal T-12-L1 back pain, elevated CRP, review CT, will check SPEP, UPEP, light chains, needs MRI spine. 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 Asthma with seasonal allergies. Lt Ovarian cyst on CT. Paraproteinemia Hypercalcemia, hyperparathyroidism, Parathyroid adenoma Hyperuricemia History of Present Illness History of Present Illness Ms Yo is a 44-year-old female with past medical history of kidney stone 1 year ago and who has had 8 miscarriages and 2 and D&Cs in the past who comes with complaints of right flank pain. She has been dealing with this for about a month but it has worsened the last couple of days. She describes the pain as sharp in nature that starts in her lower back and will radiate straight to her right lower quadrant of her abdomen. She denies nausea vomiting or changes in her bowel habits from this pain. She was started on muscle relaxants for possible concern of muscle strain. However, she does not state that this helps her pain. She has had one episode of a kidney stone that was passed in the past 1 year ago. However, the stone was never analyzed. Patient denies any hematuria, fevers, syncope, chest pain, vaginal bleeding or discharge, or recent risky sexual behavior. 12/19: Patient had fever of 100.6 overnight. Patient continues to have the same back pains as her admission. No changes in character or quantity. WBC is 21.9 today decreased from 25. Patient's chart, labs, images were reviewed and discussed with RN 12/20: Febrile to 101.2 F this morning. C/o back pain. 12/21: Febrile febrile 100.5 F today. WBC 13.4, Hb 13.4, platelets down to 64. CRP returned to 217. Back pain a bit better. Sesatmibi scan with left parathyroid uptake concerning for adenoma Afebrile for 24 hours back pain is improved to 4 out of 10. She now has right SI joint pain. Platelets 60 today. Discussed with ID to DC Zosyn and continue doxycycline. Unable to do MRI, will do scan. Vitals/I&O Vitals/I&O: Vital Signs Date Time Temp Pulse Resp B/P (MAP) Pulse Ox O2 Delivery O2 Flow Rate FiO2 12/23/19 07:08 18 Room Air 12/23/19 07:00 98.8 89 144/83 (103) 95 98.8 I & O 12/22/19 12/22/19 12/23/19 15:00 23:00 07:00 Intake Total 350 ml 700 ml 300 ml Balance 350 ml 700 ml 300 ml Physical Exam Physical Exam: GENERAL: Alert, oriented x 3 female, sitting upright in chair in no acute distress, comfortable HEENT: Normocephalic, atraumatic. Anicteric. No thrush. NECK: Supple. No JVD. LUNGS: Clear bilaterally. No wheezing. HEART: S1, S2. No gallops or murmurs. ABDOMEN: Soft, nontender, nondistended. No rebound, no guarding. EXTREMITIES: No edema, no cyanosis. DERMATOLOGIC: Warm, dry. No generalized rash. NEUROLOGIC: Alert and oriented x 3, grossly nonfocal. PSYCHIATRIC: Cooperative, appropriate mood and affect. MUSCULOSKELETAL: No joint swelling, no decrease in range of motion. Previous scars well-healed General: Alert, Oriented X3 Heart: Regular rate, Normal S1, Normal S2 Abdomen: Normal bowel sounds, Soft Extremities: No clubbing Skin: No rashes Labs Labs: Laboratory Tests Test 12/23/19 04:40 White Blood Count 9.5 x10^3/uL (4.0-11.0) Red Blood Count 4.22 x10^6/uL (3.50-5.40) Hemoglobin 12.8 g/dL (12.0-15.5) Hematocrit 37.5 % (36.0-47.0) Mean Corpuscular Volume 89 fL (79-100) Mean Corpuscular Hemoglobin 30 pg (25-35) Mean Corpuscular Hemoglobin Concent 34 g/dL (31-37) Red Cell Distribution Width 14.6 % (11.5-14.5) Platelet Count 60 x10^3/uL (140-400) Neutrophils (%) (Auto) 58 % (31-73) Lymphocytes (%) (Auto) 26 % (24-48) Monocytes (%) (Auto) 16 % (0-9) Eosinophils (%) (Auto) 0 % (0-3) Basophils (%) (Auto) 1 % (0-3) Neutrophils # (Auto) 5.5 x10^3/uL (1.8-7.7) Lymphocytes # (Auto) 2.5 x10^3/uL (1.0-4.8) Monocytes # (Auto) 1.6 x10^3/uL (0.0-1.1) Eosinophils # (Auto) 0.0 x10^3/uL (0.0-0.7) Basophils # (Auto) 0.0 x10^3/uL (0.0-0.2) Sodium Level 140 mmol/L (136-145) Potassium Level 3.6 mmol/L (3.5-5.1) Chloride Level 101 mmol/L (98-107) Carbon Dioxide Level 29 mmol/L (21-32) Anion Gap 10 (6-14) Blood Urea Nitrogen 12 mg/dL (7-20) Creatinine 0.7 mg/dL (0.6-1.0) Estimated GFR (Cockcroft-Gault) 91.8 Glucose Level 98 mg/dL (70-99) Calcium Level 9.7 mg/dL (8.5-10.1) Phosphorus Level 1.7 mg/dL (2.6-4.7) Albumin 3.1 g/dL (3.4-5.0) Assessment and Plan Assessmemt and Plan Problems Medical Problems: (1) Bacteria in urine Status: Acute (2) Intractable abdominal pain Status: Acute (3) Leukocytosis Status: Acute Comment Review of Relevant I have reviewed the following items ludivina (where applicable) has been applied. Justifications for Admission Other Justification ALEKSEY SIMMONS MD Dec 23, 2019 10:25
--- NOTE | 2019-12-23 10:34 | PDOC ---
Infectious Disease Note Subjective: Subjective Patient feels a little better today continues to have back pain Denies any fever Continues to have some upper chest pain, which comes and goes No more nausea or vomiting or diarrhea No symptoms No abdominal or flank pain or shortness of breath or cough Denies any headache Denies any chills Vital Signs: Vital Signs Vital Signs Date Time Temp Pulse Resp B/P (MAP) Pulse Ox O2 Delivery O2 Flow Rate FiO2 12/23/19 07:08 18 Room Air 12/23/19 07:00 98.8 89 144/83 (103) 95 98.8 Physical Exam: PHYSICAL EXAM GENERAL: Alert, oriented x 3 female, sitting upright in chair in no acute distress, comfortable HEENT: Normocephalic, atraumatic. Anicteric. No thrush. NECK: Supple. No JVD. LUNGS: Clear bilaterally. No wheezing. HEART: S1, S2. No gallops or murmurs. ABDOMEN: Soft, nontender, nondistended. No rebound, no guarding. EXTREMITIES: No edema, no cyanosis. DERMATOLOGIC: Warm, dry. No generalized rash. NEUROLOGIC: Alert and oriented x 3, grossly nonfocal. PSYCHIATRIC: Cooperative, appropriate mood and affect. MUSCULOSKELETAL: No joint swelling, no decrease in range of motion. Previous scars well-healed Medications: Inpatient Meds: Current Medications Medications (Trade) Dose Ordered Sig/Kaci Start Time Stop Time Status Last Admin Dose Admin Acetaminophen (Tylenol) 650 mg PRN Q6HRS PRN 12/20/19 00:15 12/21/19 23:20 650 MG Acetaminophen/ Hydrocodone Bitart (Lortab 5/325) 1 tab PRN Q4HRS PRN 12/19/19 13:00 12/23/19 06:08 1 TAB Alprazolam (Xanax) 0.25 mg PRN Q8HRS PRN 12/19/19 22:00 12/21/19 23:47 0.25 MG Bupivacaine HCl (Sensorcaine-Mpf 0.25%) 10 ml 1X ONCE 12/23/19 10:00 12/23/19 10:01 DC Ceftriaxone Sodium (Rocephin) 1 gm 1X ONCE 12/19/19 02:30 12/19/19 02:31 DC 12/19/19 03:05 1 GM Doxycycline Hyclate (Vibra-Tab) 100 mg BID 12/21/19 21:00 12/23/19 08:44 100 MG Enoxaparin Sodium (Lovenox 40mg Syringe) 40 mg Q24H 12/20/19 09:00 12/20/19 15:01 DC 12/20/19 09:07 40 MG Enoxaparin Sodium (Lovenox 60mg Syringe) 60 mg BID 12/20/19 21:00 12/22/19 08:03 DC 12/21/19 22:33 60 MG Famotidine (Pepcid) 20 mg BID 12/19/19 21:00 12/23/19 08:44 20 MG Iohexol (Omnipaque 240 Mg/ml) 50 ml 1X ONCE 12/20/19 14:30 12/20/19 14:31 DC 12/20/19 14:30 50 ML Iohexol (Omnipaque 300 Mg/ml) 75 ml 1X ONCE 12/20/19 14:30 12/20/19 14:31 DC 12/20/19 14:30 75 ML Ketorolac Tromethamine (Toradol 30mg Vial) 30 mg PRN Q6HRS PRN 12/21/19 12:30 12/26/19 12:29 Lactobacillus Rhamnosus (Culturelle) 1 cap BID 12/20/19 21:00 12/23/19 08:43 1 CAP Lidocaine (Lidoderm) 1 patch DAILY 12/20/19 09:00 12/23/19 08:44 1 PATCH Lorazepam (Ativan Inj) 2 mg PRN Q5MIN PRN 12/22/19 11:30 Meloxicam (Mobic) 15 mg DAILY 12/20/19 09:00 12/23/19 08:44 15 MG Methylprednisolone Acetate (DEPO-Medrol 40MG VIAL) 40 mg 1X ONCE 12/23/19 10:00 12/23/19 10:01 DC Metoclopramide HCl (Reglan Vial) 10 mg TID PRN PRN 12/19/19 02:15 12/22/19 21:36 10 MG Miscellaneous (Lidoderm Patch Removal) 1 ea QHS 12/20/19 21:00 12/21/19 21:00 1 EA Montelukast Sodium (Singulair) 10 mg QHS 12/19/19 21:00 9/1/20 21:27 10 MG Morphine Sulfate (Morphine Sulfate) 4 mg PRN Q2HR PRN 12/20/19 00:15 12/20/19 21:40 4 MG Piperacillin Sod/ Tazobactam Sod 3.375 gm/Sodium Chloride 50 ml @ 100 mls/hr Q6HRS 12/20/19 01:00 12/23/19 06:03 100 MLS/HR Potassium Phosphate 13.6 mmol/Sodium Chloride 254.5333 ml @ 127.... Q2H 12/21/19 15:00 12/21/19 18:59 DC 12/21/19 20:20 127.267 MLS/HR Ringer's Solution 1,000 ml @ 150 mls/hr Q6H40M 12/19/19 02:00 12/20/19 01:59 DC 12/19/19 22:00 150 MLS/HR Vitamin D (Vitamin D3) 5,000 unit DAILY 12/21/19 12:30 12/23/19 08:44 5,000 UNIT Labs: Lab Laboratory Tests Test 12/23/19 04:40 White Blood Count 9.5 x10^3/uL (4.0-11.0) Red Blood Count 4.22 x10^6/uL (3.50-5.40) Hemoglobin 12.8 g/dL (12.0-15.5) Hematocrit 37.5 % (36.0-47.0) Mean Corpuscular Volume 89 fL (79-100) Mean Corpuscular Hemoglobin 30 pg (25-35) Mean Corpuscular Hemoglobin Concent 34 g/dL (31-37) Red Cell Distribution Width 14.6 % (11.5-14.5) Platelet Count 60 x10^3/uL (140-400) Neutrophils (%) (Auto) 58 % (31-73) Lymphocytes (%) (Auto) 26 % (24-48) Monocytes (%) (Auto) 16 % (0-9) Eosinophils (%) (Auto) 0 % (0-3) Basophils (%) (Auto) 1 % (0-3) Neutrophils # (Auto) 5.5 x10^3/uL (1.8-7.7) Lymphocytes # (Auto) 2.5 x10^3/uL (1.0-4.8) Monocytes # (Auto) 1.6 x10^3/uL (0.0-1.1) Eosinophils # (Auto) 0.0 x10^3/uL (0.0-0.7) Basophils # (Auto) 0.0 x10^3/uL (0.0-0.2) Sodium Level 140 mmol/L (136-145) Potassium Level 3.6 mmol/L (3.5-5.1) Chloride Level 101 mmol/L (98-107) Carbon Dioxide Level 29 mmol/L (21-32) Anion Gap 10 (6-14) Blood Urea Nitrogen 12 mg/dL (7-20) Creatinine 0.7 mg/dL (0.6-1.0) Estimated GFR (Cockcroft-Gault) 91.8 Glucose Level 98 mg/dL (70-99) Calcium Level 9.7 mg/dL (8.5-10.1) Phosphorus Level 1.7 mg/dL (2.6-4.7) Albumin 3.1 g/dL (3.4-5.0) Objective: Assessment: Leukocytosis with bandemia, etiology unclear at this time,resolved, on infectious Fever. pattern improved , cultures remain nonrevealing ,could be noninfectious Back pain. Awaiting bone scan as MRI cannot be done per team History of kidney stone. The patient may have passed a kidney stone with residual findings. No localizing findings at this time. Morbid obesity. Asthma with seasonal allergies. Lt Ovarian cyst on CT. Thrombocytopenia ? drug induced Paraproteinemia Hypercalcemia, hyperparathyroidism, Parathyroid adenoma Hyperuricemia abnormal LFTs Plan: Plan of Care DC Zosyn to thrombocytopenia Continue doxycycline, will taper soon F/U bone scan Continue supportive care. Undergoing nephrology work-up Discussed with at bedside Discussed with CHITRA Worrell MD Dec 23, 2019 10:34
[2019-12-23 13:13] LABS: ALBUM 3.9 g/dL (2.9-4.4); ALPHA 1 0.4 g/dL (0.0-0.4); ALPHA 2 0.7 g/dL (0.4-1.0); BETA 1.3 g/dL (0.7-1.3); GAMMA 0.9 g/dL (0.4-1.8); PROTEIN TOTAL 7.1 g/dL (6.0-8.5); SPEP AG RATIO 1.2 (0.7-1.7)
--- NOTE | 2019-12-23 14:33 | PDOC ---
PROGRESS NOTES Date of Service DATE: 12/23/19 TIME: 14:28 Subjective Subjective She admits continued low back pain. Objective Objective Vital Signs Date Time Temp Pulse Resp B/P (MAP) Pulse Ox O2 Delivery O2 Flow Rate FiO2 12/23/19 11:00 97.8 76 127/80 (96) 97 Room Air 97.8 12/23/19 07:08 18 Intake and Output 12/23/19 07:00 Intake Total 1350 ml Balance 1350 ml Intake Oral 1250 ml IV Total 100 ml # Voids 2 Physical Exam Physical Exam She had tenderness to palpation over right sacroiliac joint and adjoining lumbar paraspinal muscles with painfully limited lumbar spine ROM. Assessment Assessment Problems Medical Problems: (1) Bacteria in urine Status: Acute (2) Intractable abdominal pain Status: Acute (3) Leukocytosis Status: Acute Plan Plan of Care At her request,I have injected painful right sacroiliac joint under aseptic skin technique using alcohol skin prep,with 2 ml of ).25% marcaine solution mixed with 1 ml of depo-medrol 40 mg/ 1 ml solution and she tolerated the procedure satisfactorily without any side effects. Home when medically stable with out patient follow up when medically stable. Comment Review of Relevant I have reviewed the following items ludivina (where applicable) has been applied. Labs Laboratory Tests Test 12/22/19 03:15 12/22/19 08:40 12/23/19 04:40 White Blood Count 13.4 x10^3/uL (4.0-11.0) 9.5 x10^3/uL (4.0-11.0) Red Blood Count 4.49 x10^6/uL (3.50-5.40) 4.22 x10^6/uL (3.50-5.40) Hemoglobin 13.4 g/dL (12.0-15.5) 12.8 g/dL (12.0-15.5) Hematocrit 40.0 % (36.0-47.0) 37.5 % (36.0-47.0) Mean Corpuscular Volume 89 fL (79-100) 89 fL (79-100) Mean Corpuscular Hemoglobin 30 pg (25-35) 30 pg (25-35) Mean Corpuscular Hemoglobin Concent 33 g/dL (31-37) 34 g/dL (31-37) Red Cell Distribution Width 14.5 % (11.5-14.5) 14.6 % (11.5-14.5) Platelet Count 64 x10^3/uL (140-400) 60 x10^3/uL (140-400) Neutrophils (%) (Auto) 66 % (31-73) 58 % (31-73) Lymphocytes (%) (Auto) 14 % (24-48) 26 % (24-48) Monocytes (%) (Auto) 19 % (0-9) 16 % (0-9) Eosinophils (%) (Auto) 0 % (0-3) 0 % (0-3) Basophils (%) (Auto) 1 % (0-3) 1 % (0-3) Neutrophils # (Auto) 8.8 x10^3/uL (1.8-7.7) 5.5 x10^3/uL (1.8-7.7) Lymphocytes # (Auto) 1.9 x10^3/uL (1.0-4.8) 2.5 x10^3/uL (1.0-4.8) Monocytes # (Auto) 2.6 x10^3/uL (0.0-1.1) 1.6 x10^3/uL (0.0-1.1) Eosinophils # (Auto) 0.0 x10^3/uL (0.0-0.7) 0.0 x10^3/uL (0.0-0.7) Basophils # (Auto) 0.1 x10^3/uL (0.0-0.2) 0.0 x10^3/uL (0.0-0.2) Segmented Neutrophils % 59 % (35-66) Band Neutrophils % 7 % (0-9) Lymphocytes % 12 % (24-48) Monocytes % 21 % (0-10) Metamyelocytes % 1 % (0-0) Platelet Estimate Decreased (ADEQUATE) Polychromasia Slight Sodium Level 134 mmol/L (136-145) 140 mmol/L (136-145) Potassium Level 3.6 mmol/L (3.5-5.1) 3.6 mmol/L (3.5-5.1) Chloride Level 100 mmol/L (98-107) 101 mmol/L (98-107) Carbon Dioxide Level 26 mmol/L (21-32) 29 mmol/L (21-32) Anion Gap 8 (6-14) 10 (6-14) Blood Urea Nitrogen 8 mg/dL (7-20) 12 mg/dL (7-20) Creatinine 0.7 mg/dL (0.6-1.0) 0.7 mg/dL (0.6-1.0) Estimated GFR (Cockcroft-Gault) 91.8 91.8 BUN/Creatinine Ratio 11 (6-20) Glucose Level 111 mg/dL (70-99) 98 mg/dL (70-99) Calcium Level 10.0 mg/dL (8.5-10.1) 9.7 mg/dL (8.5-10.1) Total Bilirubin 1.3 mg/dL (0.2-1.0) Aspartate Amino Transf (AST/SGOT) 55 U/L (15-37) Alanine Aminotransferase (ALT/SGPT) 41 U/L (14-59) Alkaline Phosphatase 155 U/L (46-116) Total Protein 7.4 g/dL (6.4-8.2) Albumin 3.4 g/dL (3.4-5.0) 3.1 g/dL (3.4-5.0) Albumin/Globulin Ratio 0.9 (1.0-1.7) Heparin-Induced Platelet Antibody See separate report Phosphorus Level 1.7 mg/dL (2.6-4.7) Laboratory Tests Test 12/23/19 04:40 White Blood Count 9.5 x10^3/uL (4.0-11.0) Red Blood Count 4.22 x10^6/uL (3.50-5.40) Hemoglobin 12.8 g/dL (12.0-15.5) Hematocrit 37.5 % (36.0-47.0) Mean Corpuscular Volume 89 fL (79-100) Mean Corpuscular Hemoglobin 30 pg (25-35) Mean Corpuscular Hemoglobin Concent 34 g/dL (31-37) Red Cell Distribution Width 14.6 % (11.5-14.5) Platelet Count 60 x10^3/uL (140-400) Neutrophils (%) (Auto) 58 % (31-73) Lymphocytes (%) (Auto) 26 % (24-48) Monocytes (%) (Auto) 16 % (0-9) Eosinophils (%) (Auto) 0 % (0-3) Basophils (%) (Auto) 1 % (0-3) Neutrophils # (Auto) 5.5 x10^3/uL (1.8-7.7) Lymphocytes # (Auto) 2.5 x10^3/uL (1.0-4.8) Monocytes # (Auto) 1.6 x10^3/uL (0.0-1.1) Eosinophils # (Auto) 0.0 x10^3/uL (0.0-0.7) Basophils # (Auto) 0.0 x10^3/uL (0.0-0.2) Sodium Level 140 mmol/L (136-145) Potassium Level 3.6 mmol/L (3.5-5.1) Chloride Level 101 mmol/L (98-107) Carbon Dioxide Level 29 mmol/L (21-32) Anion Gap 10 (6-14) Blood Urea Nitrogen 12 mg/dL (7-20) Creatinine 0.7 mg/dL (0.6-1.0) Estimated GFR (Cockcroft-Gault) 91.8 Glucose Level 98 mg/dL (70-99) Calcium Level 9.7 mg/dL (8.5-10.1) Phosphorus Level 1.7 mg/dL (2.6-4.7) Albumin 3.1 g/dL (3.4-5.0) Microbiology 12/19/19 Blood Culture - Preliminary, Resulted NO GROWTH AFTER 4 DAYS 12/18/19 Urine Culture - Final, Complete Medications Current Medications Metoclopramide HCl (Reglan Vial) 10 mg 1X ONCE IVP Last administered on 12/18/19at 23:51; Start 12/18/19 at 23:45; Stop 12/18/19 at 23:46; Status DC Morphine Sulfate (Morphine Sulfate) 4 mg 1X ONCE IV Last administered on 12/18/19at 23:51; Start 12/18/19 at 23:45; Stop 12/18/19 at 23:46; Status DC Ringer's Solution 1,000 ml @ 1,000 mls/hr 1X ONCE IV Last administered on 12/19/19at 01:46; Start 12/19/19 at 01:00; Stop 12/19/19 at 01:59; Status DC Ringer's Solution 1,000 ml @ 150 mls/hr Q6H40M IV Last administered on 12/19/19 22:00; Start 12/19/19 at 02:00; Stop 12/20/19 at 01:59; Status DC Ceftriaxone Sodium (Rocephin) 1 gm 1X ONCE IVP Last administered on 12/19/19 03:05; Start 12/19/19 at 02:30; Stop 12/19/19 at 02:31; Status DC Morphine Sulfate (Morphine Sulfate) 4 mg PRN Q2HR PRN IV SEVERE PAIN 7-10 Last administered on 12/19/19 21:59; Start 12/19/19 at 02:15; Stop 12/20/19 at 00:06; Status DC Metoclopramide HCl (Reglan Vial) 10 mg TID PRN PRN IVP NAUSEA/VOMITING Last administered on 12/22/19 21:36; Start 12/19/19 at 02:15 Acetaminophen/ Hydrocodone Bitart (Lortab 5/325) 1 tab PRN Q4HRS PRN PO MILD TO MODERATE PAIN Last administered on 12/23/19 12:58; Start 12/19/19 at 13:00 Lidocaine (Lidoderm) 1 patch DAILY TD Last administered on 12/23/19 08:44; Start 12/20/19 at 09:00 Miscellaneous (Lidoderm Patch Removal) 1 ea QHS MC Last administered on 12/21/19 21:00; Start 12/20/19 at 21:00 Enoxaparin Sodium (Lovenox 40mg Syringe) 40 mg Q24H SQ Last administered on 12/20/19 09:07; Start 12/20/19 at 09:00; Stop 12/20/19 at 15:01; Status DC Famotidine (Pepcid) 20 mg BID PO Last administered on 12/23/19 08:44; Start 12/19/19 at 21:00 Meloxicam (Mobic) 15 mg DAILY PO Last administered on 12/23/19 08:44; Start 12/20/19 at 09:00 Montelukast Sodium (Singulair) 10 mg QHS PO Last administered on 12/22/19 21:27; Start 12/19/19 at 21:00 Alprazolam (Xanax) 0.25 mg PRN Q8HRS PRN PO ANXIETY / AGITATION Last administered on 12/21/19at 23:47; Start 12/19/19 at 22:00 Piperacillin Sod/ Tazobactam Sod 3.375 gm/Sodium Chloride 50 ml @ 100 mls/hr Q6HRS IV Last administered on 12/23/19at 11:45; Start 12/20/19 at 01:00; Stop 12/23/19 at 12:16; Status DC Acetaminophen (Tylenol) 650 mg PRN Q6HRS PRN PO FEVER > 100.3'F Last administered on 12/21/19at 23:20; Start 12/20/19 at 00:15 Morphine Sulfate (Morphine Sulfate) 4 mg PRN Q2HR PRN IV SEVERE PAIN 7-10 Last administered on 12/20/19at 21:40; Start 12/20/19 at 00:15 Lactobacillus Rhamnosus (Culturelle) 1 cap BID PO Last administered on 12/23/19at 08:43; Start 12/20/19 at 21:00 Iohexol (Omnipaque 300 Mg/ml) 75 ml 1X ONCE IV Last administered on 12/20/19at 14:30; Start 12/20/19 at 14:30; Stop 12/20/19 at 14:31; Status DC Iohexol (Omnipaque 240 Mg/ml) 50 ml 1X ONCE PO Last administered on 12/20/19at 14:30; Start 12/20/19 at 14:30; Stop 12/20/19 at 14:31; Status DC Enoxaparin Sodium (Lovenox 60mg Syringe) 60 mg BID SQ Last administered on 12/21/19at 22:33; Start 12/20/19 at 21:00; Stop 12/22/19 at 08:03; Status DC Vitamin D (Vitamin D3) 5,000 unit DAILY PO Last administered on 12/23/19at 08:44; Start 12/21/19 at 12:30 Ketorolac Tromethamine (Toradol 30mg Vial) 30 mg PRN Q6HRS PRN IVP PAIN; Start 12/21/19 at 12:30; Stop 12/26/19 at 12:29 Doxycycline Hyclate (Vibra-Tab) 100 mg BID PO Last administered on 12/23/19at 08:44; Start 12/21/19 at 21:00 Potassium Phosphate 13.6 mmol/Sodium Chloride 254.5333 ml @ 127.... Q2H IV Last administered on 12/21/19at 20:20; Start 12/21/19 at 15:00; Stop 12/21/19 at 18:59; Status DC Lorazepam (Ativan Inj) 2 mg PRN Q5MIN PRN IVP ANXIETY / AGITATION; Start 12/22/19 at 11:30 Methylprednisolone Acetate (DEPO-Medrol 40MG VIAL) 40 mg 1X ONCE IM Last administered on 12/23/19at 10:00; Start 12/23/19 at 10:00; Stop 12/23/19 at 10:01; Status DC Bupivacaine HCl (Sensorcaine-Mpf 0.25%) 10 ml 1X ONCE IJ Last administered on 12/23/19at 10:00; Start 12/23/19 at 10:00; Stop 12/23/19 at 10:01; Status DC Active Scripts Active Percocet 5-325 Mg Tablet (Oxycodone/Acetaminophen) 1 Each Tablet 1-2 Each PO Q6HRS PRN pain Promethazine Hcl 25 Mg Tablet 1 Tab PO PRN Q6HRS PRN Ciprofloxacin Hcl 500 Mg Tablet 1 Tab PO BID Vitals/I & O Vital Sign - Last 24 Hours 12/22/19 12/22/19 12/22/19 12/22/19 14:30 15:00 19:01 20:20 Temp 99.1 99.3 99.1 99.3 Pulse 101 97 Resp 18 18 18 B/P (MAP) 142/84 (103) 137/83 (101) Pulse Ox 95 94 99 O2 Delivery Room Air Room Air Room Air Room Air 12/22/19 12/23/19 12/23/19 12/23/19 21:36 00:32 04:05 06:08 Temp 98.7 99.1 98.7 99.1 Pulse 92 94 Resp 20 20 18 18 B/P (MAP) 117/80 (92) 130/80 (97) Pulse Ox 94 95 O2 Delivery Room Air Room Air Room Air Room Air 12/23/19 12/23/19 12/23/19 12/23/19 07:00 07:08 08:00 11:00 Temp 98.8 97.8 98.8 97.8 Pulse 89 76 Resp 18 B/P (MAP) 144/83 (103) 127/80 (96) Pulse Ox 95 97 O2 Delivery Room Air Room Air Room Air Room Air Intake and Output 12/22/19 12/22/19 12/23/19 15:00 23:00 07:00 Intake Total 350 ml 700 ml 300 ml Balance 350 ml 700 ml 300 ml Justifications for Admission Other Justification CHER MALDONADO MD Dec 23, 2019 14:33
[2019-12-23 15:13] LABS: ALBUMIN RAND UR 27.6 % (.); ALPHA 1 RAND UR 8.5 % (.); ALPHA 2 RAND UR 27.1 % (.); BETA RAND UR 20.7 % (.); PROTEIN UR RAND 23.3 mg/dL (Not Estab.)
--- NOTE | 2019-12-23 16:19 | RAD ---
History: T12-L1 focal pain. Concern for discitis osteomyelitis. Comparison: Abdomen pelvis CT with IV contrast of 12/20/2019 Procedure: 26.0 mCI of Tc 99m MDP was injected intravenously and delayed scintigraphic images were obtained of the skeletal system. Findings: No abnormal uptake at the thoracolumbar junction is appreciated. Distribution of radiopharmaceutical uptake including the soft tissues is within normal limits. Impression: 1. No bone scan evidence of discitis-osteomyelitis at the thoracolumbar junction. If this is of high clinical concern, consider correlation with follow-up L-spine MRI or CT with IV contrast Electronically signed by: Abhijit Espitia MD (12/23/2019 4:16 PM) [id number]
[2019-12-23] MEDS: PATCH REMOVAL. MC SCH (21:00)
[2019-12-23] MEDS: MONTELUKAST SODIUM 10 MG TABLET. PO SCH (21:12)
[2019-12-24 03:00] VITALS: BP 134/70
[2019-12-24 07:00] VITALS: BP 131/76
[2019-12-24] MEDS: LACTOBACILLUS RHAMNOSUS GG 1 CAPSULE. PO SCH ×2 (08:37→21:23)
[2019-12-24] MEDS: MELOXICAM 7.5 MG TABLET PO SCH (08:37)
[2019-12-24] MEDS: FAMOTIDINE 20 MG TABLET. PO SCH ×2 (08:37→21:23)
[2019-12-24] MEDS: DOXYCYCLINE HYCLATE 100 MG TABLET PO SCH ×2 (08:37→21:22)
[2019-12-24] MEDS: CHOLECALCIFEROL (VITAMIN D3) 5,000 UNIT CAPSULE PO SCH (08:37)
[2019-12-24] MEDS: LIDOCAINE (700MG/PATCH) PATCH. TD SCH (08:40)
--- NOTE | 2019-12-24 09:12 | PDOC ---
DATE OF SERVICE DATE: 12/24/19 TIME: 09:12 SUBJECTIVE ROS No complaints this am, states feeling well OBJECTIVE Vital Signs Vital Signs Date Time Temp Pulse Resp B/P (MAP) Pulse Ox O2 Delivery O2 Flow Rate FiO2 12/24/19 07:00 98.3 84 16 131/76 (94) 93 Room Air 98.3 I & 0 Intake and Output 12/24/19 07:00 Intake Total 150 ml Balance 150 ml Intake Oral 150 ml # Voids 3 PHYSICAL EXAM Physical Exam GENERAL: NAD HEENT: Normocephalic, atraumatic. Anicteric. OM moist NECK: Supple. LUNGS: CTA, Non labored HEART: S1, S2. No gallops or murmurs. ABDOMEN: Soft, nontender, nondistended. No rebound, no guarding. EXTREMITIES: No edema, no cyanosis. DERMATOLOGIC: Warm, dry. No generalized rash. NEUROLOGIC: Alert and oriented x 3, grossly nonfocal. PSYCHIATRIC: Cooperative, MUSCULOSKELETAL: No joint swelling, no decrease in range of motion. No Cruz, No SP or CVA tenderness DIAGNOSIS/ASSESSMENT Assessment & Plan Hyperparathyroidism - Suspect primary Calcium elevated , renal function normal , Hgb Normal , No M spike PTH scan suspicious of adenoma recommend ENT and Endocrine follow up Vit D def - severe On Replacement now Vit d, Manuel Petty HypoPhosphatemia - Monitor , anticipate improvement with Vit d replacement Hx of Nephrolithiasis - Unremarkable CT ? Passed Stone Back Pain - No M spike Leukocytosis with bandemia/ Fever- per ID Lt Ovarian cyst on CT. COMMENT/RELEVANT DATA Meds Current Medications Medications (Trade) Dose Ordered Sig/Kaci Start Time Stop Time Status Last Admin Dose Admin Acetaminophen (Tylenol) 650 mg PRN Q6HRS PRN 12/20/19 00:15 12/21/19 23:20 650 MG Acetaminophen/ Hydrocodone Bitart (Lortab 5/325) 1 tab PRN Q4HRS PRN 12/19/19 13:00 12/23/19 21:16 1 TAB Alprazolam (Xanax) 0.25 mg PRN Q8HRS PRN 12/19/19 22:00 12/21/19 23:47 0.25 MG Bupivacaine HCl (Sensorcaine-Mpf 0.25%) 10 ml 1X ONCE 12/23/19 10:00 12/23/19 10:01 DC 9/2/20 10:00 10 ML Ceftriaxone Sodium (Rocephin) 1 gm 1X ONCE 12/19/19 02:30 12/19/19 02:31 DC 12/19/19 03:05 1 GM Doxycycline Hyclate (Vibra-Tab) 100 mg BID 12/21/19 21:00 12/24/19 08:37 100 MG Enoxaparin Sodium (Lovenox 40mg Syringe) 40 mg Q24H 12/20/19 09:00 12/20/19 15:01 DC 12/20/19 09:07 40 MG Enoxaparin Sodium (Lovenox 60mg Syringe) 60 mg BID 12/20/19 21:00 12/22/19 08:03 DC 12/21/19 22:33 60 MG Famotidine (Pepcid) 20 mg BID 12/19/19 21:00 12/24/19 08:37 20 MG Iohexol (Omnipaque 240 Mg/ml) 50 ml 1X ONCE 12/20/19 14:30 12/20/19 14:31 DC 12/20/19 14:30 50 ML Iohexol (Omnipaque 300 Mg/ml) 75 ml 1X ONCE 12/20/19 14:30 12/20/19 14:31 DC 12/20/19 14:30 75 ML Ketorolac Tromethamine (Toradol 30mg Vial) 30 mg PRN Q6HRS PRN 12/21/19 12:30 12/26/19 12:29 Lactobacillus Rhamnosus (Culturelle) 1 cap BID 12/20/19 21:00 12/24/19 08:37 1 CAP Lidocaine (Lidoderm) 1 patch DAILY 12/20/19 09:00 12/24/19 08:40 1 PATCH Lorazepam (Ativan Inj) 2 mg PRN Q5MIN PRN 12/22/19 11:30 Meloxicam (Mobic) 15 mg DAILY 12/20/19 09:00 12/24/19 08:37 15 MG Methylprednisolone Acetate (DEPO-Medrol 40MG VIAL) 40 mg 1X ONCE 12/23/19 10:00 12/23/19 10:01 DC 12/23/19 10:00 40 MG Metoclopramide HCl (Reglan Vial) 10 mg TID PRN PRN 12/19/19 02:15 12/22/19 21:36 10 MG Miscellaneous (Lidoderm Patch Removal) 1 ea QHS 12/20/19 21:00 12/23/19 21:00 1 EA Montelukast Sodium (Singulair) 10 mg QHS 12/19/19 21:00 12/23/19 21:12 10 MG Morphine Sulfate (Morphine Sulfate) 4 mg PRN Q2HR PRN 12/20/19 00:15 12/20/19 21:40 4 MG Piperacillin Sod/ Tazobactam Sod 3.375 gm/Sodium Chloride 50 ml @ 100 mls/hr Q6HRS 12/20/19 01:00 12/23/19 12:16 DC 12/23/19 11:45 100 MLS/HR Potassium Phosphate 13.6 mmol/Sodium Chloride 254.5333 ml @ 127.... Q2H 12/21/19 15:00 12/21/19 18:59 DC 12/21/19 20:20 127.267 MLS/HR Ringer's Solution 1,000 ml @ 150 mls/hr Q6H40M 12/19/19 02:00 12/20/19 01:59 DC 12/19/19 22:00 150 MLS/HR Vitamin D (Vitamin D3) 5,000 unit DAILY 12/21/19 12:30 12/24/19 08:37 5,000 UNIT Results All relevant outside records, renal labs, imaging studies, telemetry/EKG's were reviewed. Justicifation of Admission Dx: Justifications for Admission: Justification of Admission Dx: Yes LALITA BETTENCOURT MD Dec 24, 2019 09:12
--- NOTE | 2019-12-24 09:15 | PDOC ---
Infectious Disease Note Subjective: Subjective Patient feels much better Back pain has resolved after cortisone shot Denies fever, nausea, vomiting, shortness of breath, diarrhea, abdominal pain, rash Otherwise as above Vital Signs: Vital Signs Vital Signs Date Time Temp Pulse Resp B/P (MAP) Pulse Ox O2 Delivery O2 Flow Rate FiO2 12/24/19 07:00 98.3 84 16 131/76 (94) 93 Room Air 98.3 Physical Exam: PHYSICAL EXAM GENERAL: Alert, oriented x 3 female, sitting upright in chair in no acute distress, comfortable HEENT: Normocephalic, atraumatic. Anicteric. No thrush. NECK: Supple. No JVD. LUNGS: Clear bilaterally. No wheezing. HEART: S1, S2. No gallops or murmurs. ABDOMEN: Soft, nontender, nondistended. No rebound, no guarding. EXTREMITIES: No edema, no cyanosis. DERMATOLOGIC: Warm, dry. No generalized rash. NEUROLOGIC: Alert and oriented x 3, grossly nonfocal. PSYCHIATRIC: Cooperative, appropriate mood and affect. MUSCULOSKELETAL: No joint swelling, no decrease in range of motion. Previous scars well-healed Medications: Inpatient Meds: Current Medications Medications (Trade) Dose Ordered Sig/Kaci Start Time Stop Time Status Last Admin Dose Admin Acetaminophen (Tylenol) 650 mg PRN Q6HRS PRN 12/20/19 00:15 12/21/19 23:20 650 MG Acetaminophen/ Hydrocodone Bitart (Lortab 5/325) 1 tab PRN Q4HRS PRN 12/19/19 13:00 12/23/19 21:16 1 TAB Alprazolam (Xanax) 0.25 mg PRN Q8HRS PRN 12/19/19 22:00 12/21/19 23:47 0.25 MG Bupivacaine HCl (Sensorcaine-Mpf 0.25%) 10 ml 1X ONCE 12/23/19 10:00 12/23/19 10:01 DC 12/23/19 10:00 10 ML Ceftriaxone Sodium (Rocephin) 1 gm 1X ONCE 12/19/19 02:30 12/19/19 02:31 DC 12/19/19 03:05 1 GM Doxycycline Hyclate (Vibra-Tab) 100 mg BID 12/21/19 21:00 12/24/19 08:37 100 MG Enoxaparin Sodium (Lovenox 40mg Syringe) 40 mg Q24H 12/20/19 09:00 12/20/19 15:01 DC 12/20/19 09:07 40 MG Enoxaparin Sodium (Lovenox 60mg Syringe) 60 mg BID 12/20/19 21:00 12/22/19 08:03 DC 12/21/19 22:33 60 MG Famotidine (Pepcid) 20 mg BID 12/19/19 21:00 12/24/19 08:37 20 MG Iohexol (Omnipaque 240 Mg/ml) 50 ml 1X ONCE 12/20/19 14:30 12/20/19 14:31 DC 12/20/19 14:30 50 ML Iohexol (Omnipaque 300 Mg/ml) 75 ml 1X ONCE 12/20/19 14:30 12/20/19 14:31 DC 12/20/19 14:30 75 ML Ketorolac Tromethamine (Toradol 30mg Vial) 30 mg PRN Q6HRS PRN 12/21/19 12:30 12/26/19 12:29 Lactobacillus Rhamnosus (Culturelle) 1 cap BID 12/20/19 21:00 12/24/19 08:37 1 CAP Lidocaine (Lidoderm) 1 patch DAILY 12/20/19 09:00 12/24/19 08:40 1 PATCH Lorazepam (Ativan Inj) 2 mg PRN Q5MIN PRN 12/22/19 11:30 Meloxicam (Mobic) 15 mg DAILY 12/20/19 09:00 12/24/19 08:37 15 MG Methylprednisolone Acetate (DEPO-Medrol 40MG VIAL) 40 mg 1X ONCE 12/23/19 10:00 12/23/19 10:01 DC 12/23/19 10:00 40 MG Metoclopramide HCl (Reglan Vial) 10 mg TID PRN PRN 12/19/19 02:15 12/22/19 21:36 10 MG Miscellaneous (Lidoderm Patch Removal) 1 ea QHS 12/20/19 21:00 12/23/19 21:00 1 EA Montelukast Sodium (Singulair) 10 mg QHS 12/19/19 21:00 12/23/19 21:12 10 MG Morphine Sulfate (Morphine Sulfate) 4 mg PRN Q2HR PRN 12/20/19 00:15 12/20/19 21:40 4 MG Piperacillin Sod/ Tazobactam Sod 3.375 gm/Sodium Chloride 50 ml @ 100 mls/hr Q6HRS 12/20/19 01:00 12/23/19 12:16 DC 12/23/19 11:45 100 MLS/HR Potassium Phosphate 13.6 mmol/Sodium Chloride 254.5333 ml @ 127.... Q2H 12/21/19 15:00 12/21/19 18:59 DC 12/21/19 20:20 127.267 MLS/HR Ringer's Solution 1,000 ml @ 150 mls/hr Q6H40M 12/19/19 02:00 12/20/19 01:59 DC 12/19/19 22:00 150 MLS/HR Vitamin D (Vitamin D3) 5,000 unit DAILY 12/21/19 12:30 12/24/19 08:37 5,000 UNIT Objective: Assessment: Leukocytosis with bandemia, etiology unclear at this time,resolved, Fever. pattern improved , cultures remain nonrevealing ,could be noninfectious Back pain. Awaiting bone scan as MRI cannot be done per team History of kidney stone. The patient may have passed a kidney stone with residual findings. No localizing findings at this time. Morbid obesity. Asthma with seasonal allergies. Lt Ovarian cyst on CT. Thrombocytopenia ? drug induced Paraproteinemia Hypercalcemia, hyperparathyroidism, Parathyroid adenoma Hyperuricemia abnormal LFTs Plan: Plan of Care Continue doxycycline, will taper soon; was on Zosyn; discontinued due to thrombocytopenia Bone scan reviewed Continue supportive care. Undergoing nephrology work-up and oncology work-up CHITRA CORDOVA MD Dec 24, 2019 09:15
--- NOTE | 2019-12-24 09:24 | PDOC ---
PROGRESS NOTES Date of Service DATE: 12/24/19 TIME: 09:22 Subjective Subjective No new complaints. Objective Objective Vital Signs Date Time Temp Pulse Resp B/P (MAP) Pulse Ox O2 Delivery O2 Flow Rate FiO2 12/24/19 07:00 98.3 84 16 131/76 (94) 93 Room Air 98.3 Intake and Output 12/24/19 07:00 Intake Total 150 ml Balance 150 ml Intake Oral 150 ml # Voids 3 Physical Exam Physical Exam She is alert,supine in bed but admits injection helped ease her pain and she is walking better. Assessment Assessment Problems Medical Problems: (1) Bacteria in urine Status: Acute (2) Intractable abdominal pain Status: Acute (3) Leukocytosis Status: Acute Plan Plan of Snf when medically stable. Comment Review of Relevant I have reviewed the following items ludivina (where applicable) has been applied. Labs Laboratory Tests Test 12/23/19 04:40 White Blood Count 9.5 x10^3/uL (4.0-11.0) Red Blood Count 4.22 x10^6/uL (3.50-5.40) Hemoglobin 12.8 g/dL (12.0-15.5) Hematocrit 37.5 % (36.0-47.0) Mean Corpuscular Volume 89 fL (79-100) Mean Corpuscular Hemoglobin 30 pg (25-35) Mean Corpuscular Hemoglobin Concent 34 g/dL (31-37) Red Cell Distribution Width 14.6 % (11.5-14.5) Platelet Count 60 x10^3/uL (140-400) Neutrophils (%) (Auto) 58 % (31-73) Lymphocytes (%) (Auto) 26 % (24-48) Monocytes (%) (Auto) 16 % (0-9) Eosinophils (%) (Auto) 0 % (0-3) Basophils (%) (Auto) 1 % (0-3) Neutrophils # (Auto) 5.5 x10^3/uL (1.8-7.7) Lymphocytes # (Auto) 2.5 x10^3/uL (1.0-4.8) Monocytes # (Auto) 1.6 x10^3/uL (0.0-1.1) Eosinophils # (Auto) 0.0 x10^3/uL (0.0-0.7) Basophils # (Auto) 0.0 x10^3/uL (0.0-0.2) Sodium Level 140 mmol/L (136-145) Potassium Level 3.6 mmol/L (3.5-5.1) Chloride Level 101 mmol/L (98-107) Carbon Dioxide Level 29 mmol/L (21-32) Anion Gap 10 (6-14) Blood Urea Nitrogen 12 mg/dL (7-20) Creatinine 0.7 mg/dL (0.6-1.0) Estimated GFR (Cockcroft-Gault) 91.8 Glucose Level 98 mg/dL (70-99) Calcium Level 9.7 mg/dL (8.5-10.1) Phosphorus Level 1.7 mg/dL (2.6-4.7) Albumin 3.1 g/dL (3.4-5.0) Microbiology 12/19/19 Blood Culture - Final, Complete NO GROWTH AFTER 5 DAYS 12/18/19 Urine Culture - Final, Complete Medications Current Medications Metoclopramide HCl (Reglan Vial) 10 mg 1X ONCE IVP Last administered on 12/18/19at 23:51; Start 12/18/19 at 23:45; Stop 12/18/19 at 23:46; Status DC Morphine Sulfate (Morphine Sulfate) 4 mg 1X ONCE IV Last administered on 12/18/19at 23:51; Start 12/18/19 at 23:45; Stop 12/18/19 at 23:46; Status DC Ringer's Solution 1,000 ml @ 1,000 mls/hr 1X ONCE IV Last administered on 12/19/19at 01:46; Start 12/19/19 at 01:00; Stop 12/19/19 at 01:59; Status DC Ringer's Solution 1,000 ml @ 150 mls/hr Q6H40M IV Last administered on 12/19/19at 22:00; Start 12/19/19 at 02:00; Stop 12/20/19 at 01:59; Status DC Ceftriaxone Sodium (Rocephin) 1 gm 1X ONCE IVP Last administered on 12/19/19at 03:05; Start 12/19/19 at 02:30; Stop 12/19/19 at 02:31; Status DC Morphine Sulfate (Morphine Sulfate) 4 mg PRN Q2HR PRN IV SEVERE PAIN 7-10 Last administered on 12/19/19 21:59; Start 12/19/19 at 02:15; Stop 12/20/19 at 00:06; Status DC Metoclopramide HCl (Reglan Vial) 10 mg TID PRN PRN IVP NAUSEA/VOMITING Last administered on 12/22/19 21:36; Start 12/19/19 at 02:15 Acetaminophen/ Hydrocodone Bitart (Lortab 5/325) 1 tab PRN Q4HRS PRN PO MILD TO MODERATE PAIN Last administered on 12/23/19 21:16; Start 12/19/19 at 13:00 Lidocaine (Lidoderm) 1 patch DAILY TD Last administered on 12/24/19 08:40; Start 12/20/19 at 09:00 Miscellaneous (Lidoderm Patch Removal) 1 ea QHS MC Last administered on 12/23/19 21:00; Start 12/20/19 at 21:00 Enoxaparin Sodium (Lovenox 40mg Syringe) 40 mg Q24H SQ Last administered on 12/20/19 09:07; Start 12/20/19 at 09:00; Stop 12/20/19 at 15:01; Status DC Famotidine (Pepcid) 20 mg BID PO Last administered on 12/24/19 08:37; Start 12/19/19 at 21:00 Meloxicam (Mobic) 15 mg DAILY PO Last administered on 12/24/19 08:37; Start 12/20/19 at 09:00 Montelukast Sodium (Singulair) 10 mg QHS PO Last administered on 12/23/19 21:12; Start 12/19/19 at 21:00 Alprazolam (Xanax) 0.25 mg PRN Q8HRS PRN PO ANXIETY / AGITATION Last administe red on 12/21/19 23:47; Start 12/19/19 at 22:00 Piperacillin Sod/ Tazobactam Sod 3.375 gm/Sodium Chloride 50 ml @ 100 mls/hr Q6 HRS IV Last administered on 12/23/19 11:45; Start 12/20/19 at 01:00; Stop 12/23/19 at 12:16; Status DC Acetaminophen (Tylenol) 650 mg PRN Q6HRS PRN PO FEVER > 100.3'F Last administered on 12/21/19at 23:20; Start 12/20/19 at 00:15 Morphine Sulfate (Morphine Sulfate) 4 mg PRN Q2HR PRN IV SEVERE PAIN 7-10 Last administered on 12/20/19at 21:40; Start 12/20/19 at 00:15 Lactobacillus Rhamnosus (Culturelle) 1 cap BID PO Last administered on 12/24/19at 08:37; Start 12/20/19 at 21:00 Iohexol (Omnipaque 300 Mg/ml) 75 ml 1X ONCE IV Last administered on 12/20/19at 14:30; Start 12/20/19 at 14:30; Stop 12/20/19 at 14:31; Status DC Iohexol (Omnipaque 240 Mg/ml) 50 ml 1X ONCE PO Last administered on 12/20/19at 14:30; Start 12/20/19 at 14:30; Stop 12/20/19 at 14:31; Status DC Enoxaparin Sodium (Lovenox 60mg Syringe) 60 mg BID SQ Last administered on 12/21/19at 22:33; Start 12/20/19 at 21:00; Stop 12/22/19 at 08:03; Status DC Vitamin D (Vitamin D3) 5,000 unit DAILY PO Last administered on 12/24/19at 08:37; Start 12/21/19 at 12:30 Ketorolac Tromethamine (Toradol 30mg Vial) 30 mg PRN Q6HRS PRN IVP PAIN; Start 12/21/19 at 12:30; Stop 12/26/19 at 12:29 Doxycycline Hyclate (Vibra-Tab) 100 mg BID PO Last administered on 12/24/19at 08:37; Start 12/21/19 at 21:00 Potassium Phosphate 13.6 mmol/Sodium Chloride 254.5333 ml @ 127.... Q2H IV Last administered on 12/21/19at 20:20; Start 12/21/19 at 15:00; Stop 12/21/19 at 18:59; Status DC Lorazepam (Ativan Inj) 2 mg PRN Q5MIN PRN IVP ANXIETY / AGITATION; Start 12/22/19 at 11:30 Methylprednisolone Acetate (DEPO-Medrol 40MG VIAL) 40 mg 1X ONCE IM Last administered on 12/23/19at 10:00; Start 12/23/19 at 10:00; Stop 12/23/19 at 10:01; Status DC Bupivacaine HCl (Sensorcaine-Mpf 0.25%) 10 ml 1X ONCE IJ Last administered on 12/23/19at 10:00; Start 12/23/19 at 10:00; Stop 12/23/19 at 10:01; Status DC Active Scripts Active Percocet 5-325 Mg Tablet (Oxycodone/Acetaminophen) 1 Each Tablet 1-2 Each PO Q6HRS PRN pain Promethazine Hcl 25 Mg Tablet 1 Tab PO PRN Q6HRS PRN Ciprofloxacin Hcl 500 Mg Tablet 1 Tab PO BID Vitals/I & O Vital Sign - Last 24 Hours 12/23/19 12/23/19 12/23/19 12/23/19 11:00 15:00 19:00 19:45 Temp 97.8 98.6 98.1 97.8 98.6 98.1 Pulse 76 84 87 Resp 18 B/P (MAP) 127/80 (96) 121/79 (93) 136/86 (103) Pulse Ox 97 98 96 O2 Delivery Room Air Room Air Room Air Room Air 12/23/19 12/23/19 12/23/19 12/24/19 21:16 22:16 23:00 03:00 Temp 98.2 97.8 98.2 97.8 Pulse 78 70 Resp 20 20 18 18 B/P (MAP) 158/89 (112) 134/70 (91) Pulse Ox 96 96 O2 Delivery Room Air Room Air Room Air Room Air 12/24/19 07:00 Temp 98.3 98.3 Pulse 84 Resp 16 B/P (MAP) 131/76 (94) Pulse Ox 93 O2 Delivery Room Air Intake and Output 12/23/19 12/23/19 12/24/19 15:00 23:00 07:00 Intake Total 150 ml Balance 150 ml Justifications for Admission Other Justification CHER MALDONADO MD Dec 24, 2019 09:24
[2019-12-24 10:45] LABS: CALCIUM 10.4 mg/dL (8.5-10.1); CREATININE 0.6 mg/dL (0.6-1.0); GFR 109.6; POTASSIUM 3.9 mmol/L (3.5-5.1)
[2019-12-24 11:00] VITALS: BP 197/92
[2019-12-24 15:00] VITALS: BP 127/78
[2019-12-24 15:32] LABS: BASO % 0 % (0-3); EOS % 0 % (0-3); HEMATOCRIT 38.7 % (36.0-47.0); HEMOGLOBIN 13.2 g/dL (12.0-15.5); LYMPH # 2.3 x10^3/uL (1.0-4.8); LYMPH % 33 % (24-48); MEAN CORPUSCULAR HEMOGLOBIN 30 pg (25-35); MEAN CORPUSCULAR HGB CONC 34 g/dL (31-37); MEAN CORPUSCULAR VOLUME 88 fL (79-100); MONO % 14 % (0-9); NEUT # 3.7 x10^3/uL (1.8-7.7); NEUT % 52 % (31-73); PLATELET COUNT 86 x10^3/uL (140-400); RED BLOOD COUNT 4.38 x10^6/uL (3.50-5.40); RED CELL DISTRIBUTION WIDTH 14.8 % (11.5-14.5); WHITE BLOOD COUNT 7.1 x10^3/uL (4.0-11.0)
[2019-12-24 15:56] LABS: % BANDS 5 % (0-9); % LYMPHS 38 % (24-48); % METAS 1 % (0-0); % MONOS 9 % (0-10); % MYELOS 2 % (0-0); % SEGS 45 % (35-66); PLT ESTIMATE DECREASED (ADEQUATE)
--- NOTE | 2019-12-24 16:38 | PDOC ---
[facility] PROGRESS NOTE Date of Service DOS: DATE: 12/24/19 TIME: 16:36 Chief Complaint Chief Complaint A/P: Acute abdominal pain with unclear etiology Back pain - focal T-12-L1 back pain, elevated CRP, review CT, will check SPEP, UPEP, light chains, needs MRI spine. 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 Asthma with seasonal allergies. Lt Ovarian cyst on CT. Paraproteinemia Hypercalcemia, hyperparathyroidism, Parathyroid adenoma Hyperuricemia History of Present Illness History of Present Illness Ms Yo is a 44-year-old female with past medical history of kidney stone 1 year ago and who has had 8 miscarriages and 2 and D&Cs in the past who comes with complaints of right flank pain. She has been dealing with this for about a month but it has worsened the last couple of days. She describes the pain as sharp in nature that starts in her lower back and will radiate straight to her right lower quadrant of her abdomen. She denies nausea vomiting or changes in her bowel habits from this pain. She was started on muscle relaxants for possible concern of muscle strain. However, she does not state that this helps her pain. She has had one episode of a kidney stone that was passed in the past 1 year ago. However, the stone was never analyzed. Patient denies any hematuria, fevers, syncope, chest pain, vaginal bleeding or discharge, or recent risky sexual behavior. 12/19: Patient had fever of 100.6 overnight. Patient continues to have the same back pains as her admission. No changes in character or quantity. WBC is 21.9 today decreased from 25. Patient's chart, labs, images were reviewed and discussed with RN 12/20: Febrile to 101.2 F this morning. C/o back pain. 12/21: Febrile febrile 100.5 F today. WBC 13.4, Hb 13.4, platelets down to 64. CRP returned to 217. Back pain a bit better. Sesatmibi scan with left parathyroid uptake concerning for adenoma Afebrile for 24 hours back pain is improved to 4 out of 10. She now has right SI joint pain. Platelets 60 today. Discussed with ID to DC Zosyn and continue doxycycline. Unable to do MRI, will do scan. 9/3: Patient states she feels well and her abdominal pain has resolved. Afebrile overnight. Discussed negative bone scan results. Platelets appear to have stabilized. Discussed with patient further monitoring overnight and discharged tomorrow if still stable. Vitals/I&O Vitals/I&O: Vital Signs Date Time Temp Pulse Resp B/P (MAP) Pulse Ox O2 Delivery O2 Flow Rate FiO2 12/24/19 15:00 98.3 72 16 127/78 (94) 98 Room Air 98.3 I & O 12/23/19 12/23/19 12/24/19 15:00 23:00 07:00 Intake Total 150 ml Balance 150 ml Physical Exam Physical Exam: GENERAL: Alert, oriented x 3 female, sitting upright in chair in no acute distress, comfortable HEENT: Normocephalic, atraumatic. Anicteric. No thrush. NECK: Supple. No JVD. LUNGS: Clear bilaterally. No wheezing. HEART: S1, S2. No gallops or murmurs. ABDOMEN: Soft, nontender, nondistended. No rebound, no guarding. EXTREMITIES: No edema, no cyanosis. DERMATOLOGIC: Warm, dry. No generalized rash. NEUROLOGIC: Alert and oriented x 3, grossly nonfocal. PSYCHIATRIC: Cooperative, appropriate mood and affect. MUSCULOSKELETAL: No joint swelling, no decrease in range of motion. Previous scars well-healed General: Alert, Oriented X3 Heart: Regular rate, Normal S1, Normal S2 Abdomen: Normal bowel sounds, Soft Extremities: No clubbing Skin: No rashes Labs Labs: Laboratory Tests Test 12/24/19 10:08 12/24/19 15:20 Sodium Level 138 mmol/L (136-145) Potassium Level 3.9 mmol/L (3.5-5.1) Chloride Level 103 mmol/L (98-107) Carbon Dioxide Level 26 mmol/L (21-32) Anion Gap 9 (6-14) Blood Urea Nitrogen 10 mg/dL (7-20) Creatinine 0.6 mg/dL (0.6-1.0) Estimated GFR (Cockcroft-Gault) 109.6 Glucose Level 116 mg/dL (70-99) Calcium Level 10.4 mg/dL (8.5-10.1) Phosphorus Level 2.0 mg/dL (2.6-4.7) White Blood Count 7.1 x10^3/uL (4.0-11.0) Red Blood Count 4.38 x10^6/uL (3.50-5.40) Hemoglobin 13.2 g/dL (12.0-15.5) Hematocrit 38.7 % (36.0-47.0) Mean Corpuscular Volume 88 fL (79-100) Mean Corpuscular Hemoglobin 30 pg (25-35) Mean Corpuscular Hemoglobin Concent 34 g/dL (31-37) Red Cell Distribution Width 14.8 % (11.5-14.5) Platelet Count 86 x10^3/uL (140-400) Neutrophils (%) (Auto) 52 % (31-73) Lymphocytes (%) (Auto) 33 % (24-48) Monocytes (%) (Auto) 14 % (0-9) Eosinophils (%) (Auto) 0 % (0-3) Basophils (%) (Auto) 0 % (0-3) Neutrophils # (Auto) 3.7 x10^3/uL (1.8-7.7) Lymphocytes # (Auto) 2.3 x10^3/uL (1.0-4.8) Monocytes # (Auto) 1.0 x10^3/uL (0.0-1.1) Eosinophils # (Auto) 0.0 x10^3/uL (0.0-0.7) Basophils # (Auto) 0.0 x10^3/uL (0.0-0.2) Segmented Neutrophils % 45 % (35-66) Band Neutrophils % 5 % (0-9) Lymphocytes % 38 % (24-48) Monocytes % 9 % (0-10) Metamyelocytes % 1 % (0-0) Myelocytes % 2 % (0-0) Platelet Estimate Decreased (ADEQUATE) Review of Systems Review of Systems: Denies abdominal pain, denies shortness of breath denies chest pain Assessment and Plan Assessmemt and Plan Problems Medical Problems: (1) Bacteria in urine Status: Acute (2) Intractable abdominal pain Status: Acute (3) Leukocytosis Status: Acute Comment Review of Relevant I have reviewed the following items ludivina (where applicable) has been applied. Justifications for Admission Other Justification ALBERTO RICK MD Dec 24, 2019 16:38
[2019-12-24 19:00] VITALS: BP 143/82
[2019-12-24] MEDS: PATCH REMOVAL. MC SCH (21:00)
[2019-12-24] MEDS: MONTELUKAST SODIUM 10 MG TABLET. PO SCH (21:22)
[2019-12-24 23:00] VITALS: BP 137/66
[2019-12-25 03:00] VITALS: BP 119/70
[2019-12-25 04:41] LABS: BASO % 0 % (0-3); EOS % 0 % (0-3); HEMOGLOBIN 12.9 g/dL (12.0-15.5); LYMPH # 2.3 x10^3/uL (1.0-4.8); LYMPH % 40 % (24-48); MEAN CORPUSCULAR HEMOGLOBIN 30 pg (25-35); MEAN CORPUSCULAR HGB CONC 34 g/dL (31-37); MEAN CORPUSCULAR VOLUME 89 fL (79-100); MONO # 0.7 x10^3/uL (0.0-1.1); MONO % 11 % (0-9); NEUT # 2.9 x10^3/uL (1.8-7.7); NEUT % 49 % (31-73); PLATELET COUNT 97 x10^3/uL (140-400); RED BLOOD COUNT 4.28 x10^6/uL (3.50-5.40); RED CELL DISTRIBUTION WIDTH 14.3 % (11.5-14.5); WHITE BLOOD COUNT 5.9 x10^3/uL (4.0-11.0)
[2019-12-25 07:00] VITALS: BP 138/87
--- NOTE | 2019-12-25 08:30 | PDOC ---
Infectious Disease Note Subjective: Subjective Patient feels much better Back pain is improving, some stiffness Denies fever, nausea, vomiting, shortness of breath, diarrhea, abdominal pain, rash Otherwise as above Vital Signs: Vital Signs Vital Signs Date Time Temp Pulse Resp B/P (MAP) Pulse Ox O2 Delivery O2 Flow Rate FiO2 12/25/19 07:00 98.2 80 18 138/87 (104) 95 Room Air 98.2 Physical Exam: PHYSICAL EXAM GENERAL: Alert, oriented x 3 female, sitting upright in chair in no acute di stress, comfortable HEENT: Normocephalic, atraumatic. Anicteric. No thrush. NECK: Supple. No JVD. LUNGS: Clear bilaterally. No wheezing. HEART: S1, S2. No gallops or murmurs. ABDOMEN: Soft, nontender, nondistended. No rebound, no guarding. EXTREMITIES: No edema, no cyanosis. DERMATOLOGIC: Warm, dry. No generalized rash. NEUROLOGIC: Alert and oriented x 3, grossly nonfocal. PSYCHIATRIC: Cooperative, appropriate mood and affect. MUSCULOSKELETAL: No joint swelling, no decrease in range of motion. Previous scars well-healed Medications: Inpatient Meds: Current Medications Medications (Trade) Dose Ordered Sig/Kaci Start Time Stop Time Status Last Admin Dose Admin Acetaminophen (Tylenol) 650 mg PRN Q6HRS PRN 12/20/19 00:15 12/21/19 23:20 650 MG Acetaminophen/ Hydrocodone Bitart (Lortab 5/325) 1 tab PRN Q4HRS PRN 12/19/19 13:00 12/23/19 21:16 1 TAB Alprazolam (Xanax) 0.25 mg PRN Q8HRS PRN 12/19/19 22:00 12/21/19 23:47 0.25 MG Bupivacaine HCl (Sensorcaine-Mpf 0.25%) 10 ml 1X ONCE 12/23/19 10:00 12/23/19 10:01 DC 12/23/19 10:00 10 ML Ceftriaxone Sodium (Rocephin) 1 gm 1X ONCE 12/19/19 02:30 12/19/19 02:31 DC 12/19/19 03:05 1 GM Doxycycline Hyclate (Vibra-Tab) 100 mg BID 12/21/19 21:00 12/24/19 21:22 100 MG Enoxaparin Sodium (Lovenox 40mg Syringe) 40 mg Q24H 12/20/19 09:00 12/20/19 15:01 DC 12/20/19 09:07 40 MG Enoxaparin Sodium (Lovenox 60mg Syringe) 60 mg BID 12/20/19 21:00 12/22/19 08:03 DC 12/21/19 22:33 60 MG Famotidine (Pepcid) 20 mg BID 12/19/19 21:00 12/24/19 21:23 20 MG Iohexol (Omnipaque 240 Mg/ml) 50 ml 1X ONCE 12/20/19 14:30 12/20/19 14:31 DC 12/20/19 14:30 50 ML Iohexol (Omnipaque 300 Mg/ml) 75 ml 1X ONCE 12/20/19 14:30 12/20/19 14:31 DC 12/20/19 14:30 75 ML Ketorolac Tromethamine (Toradol 30mg Vial) 30 mg PRN Q6HRS PRN 12/21/19 12:30 12/26/19 12:29 Lactobacillus Rhamnosus (Culturelle) 1 cap BID 12/20/19 21:00 12/24/19 21:23 1 CAP Lidocaine (Lidoderm) 1 patch DAILY 12/20/19 09:00 12/24/19 08:40 1 PATCH Lorazepam (Ativan Inj) 2 mg PRN Q5MIN PRN 12/22/19 11:30 Meloxicam (Mobic) 15 mg DAILY 12/20/19 09:00 12/24/19 08:37 15 MG Methylprednisolone Acetate (DEPO-Medrol 40MG VIAL) 40 mg 1X ONCE 12/23/19 10:00 12/23/19 10:01 DC 12/23/19 10:00 40 MG Metoclopramide HCl (Reglan Vial) 10 mg TID PRN PRN 12/19/19 02:15 12/22/19 21:36 10 MG Miscellaneous (Lidoderm Patch Removal) 1 ea QHS 12/20/19 21:00 12/24/19 21:00 1 EA Montelukast Sodium (Singulair) 10 mg QHS 12/19/19 21:00 12/24/19 21:22 10 MG Morphine Sulfate (Morphine Sulfate) 4 mg PRN Q2HR PRN 12/20/19 00:15 12/20/19 21:40 4 MG Piperacillin Sod/ Tazobactam Sod 3.375 gm/Sodium Chloride 50 ml @ 100 mls/hr Q6HRS 12/20/19 01:00 12/23/19 12:16 DC 12/23/19 11:45 100 MLS/HR Potassium Phosphate 13.6 mmol/Sodium Chloride 254.5333 ml @ 127.... Q2H 12/21/19 15:00 12/21/19 18:59 DC 12/21/19 20:20 127.267 MLS/HR Ringer's Solution 1,000 ml @ 150 mls/hr Q6H40M 12/19/19 02:00 12/20/19 01:59 DC 12/19/19 22:00 150 MLS/HR Vitamin D (Vitamin D3) 5,000 unit DAILY 12/21/19 12:30 12/24/19 08:37 5,000 UNIT Labs: Lab Laboratory Tests Test 12/24/19 10:08 12/24/19 15:20 12/25/19 04:15 Sodium Level 138 mmol/L (136-145) Potassium Level 3.9 mmol/L (3.5-5.1) Chloride Level 103 mmol/L (98-107) Carbon Dioxide Level 26 mmol/L (21-32) Anion Gap 9 (6-14) Blood Urea Nitrogen 10 mg/dL (7-20) Creatinine 0.6 mg/dL (0.6-1.0) Estimated GFR (Cockcroft-Gault) 109.6 Glucose Level 116 mg/dL (70-99) Calcium Level 10.4 mg/dL (8.5-10.1) Phosphorus Level 2.0 mg/dL (2.6-4.7) White Blood Count 7.1 x10^3/uL (4.0-11.0) 5.9 x10^3/uL (4.0-11.0) Red Blood Count 4.38 x10^6/uL (3.50-5.40) 4.28 x10^6/uL (3.50-5.40) Hemoglobin 13.2 g/dL (12.0-15.5) 12.9 g/dL (12.0-15.5) Hematocrit 38.7 % (36.0-47.0) 38.0 % (36.0-47.0) Mean Corpuscular Volume 88 fL (79-100) 89 fL (79-100) Mean Corpuscular Hemoglobin 30 pg (25-35) 30 pg (25-35) Mean Corpuscular Hemoglobin Concent 34 g/dL (31-37) 34 g/dL (31-37) Red Cell Distribution Width 14.8 % (11.5-14.5) 14.3 % (11.5-14.5) Platelet Count 86 x10^3/uL (140-400) 97 x10^3/uL (140-400) Neutrophils (%) (Auto) 52 % (31-73) 49 % (31-73) Lymphocytes (%) (Auto) 33 % (24-48) 40 % (24-48) Monocytes (%) (Auto) 14 % (0-9) 11 % (0-9) Eosinophils (%) (Auto) 0 % (0-3) 0 % (0-3) Basophils (%) (Auto) 0 % (0-3) 0 % (0-3) Neutrophils # (Auto) 3.7 x10^3/uL (1.8-7.7) 2.9 x10^3/uL (1.8-7.7) Lymphocytes # (Auto) 2.3 x10^3/uL (1.0-4.8) 2.3 x10^3/uL (1.0-4.8) Monocytes # (Auto) 1.0 x10^3/uL (0.0-1.1) 0.7 x10^3/uL (0.0-1.1) Eosinophils # (Auto) 0.0 x10^3/uL (0.0-0.7) 0.0 x10^3/uL (0.0-0.7) Basophils # (Auto) 0.0 x10^3/uL (0.0-0.2) 0.0 x10^3/uL (0.0-0.2) Segmented Neutrophils % 45 % (35-66) Band Neutrophils % 5 % (0-9) Lymphocytes % 38 % (24-48) Monocytes % 9 % (0-10) Metamyelocytes % 1 % (0-0) Myelocytes % 2 % (0-0) Platelet Estimate Decreased (ADEQUATE) Objective: Assessment: Leukocytosis with bandemia, etiology unclear at this time,resolved, Fever. pattern improved , cultures remain nonrevealing ,could be noninfectious Back pain. Awaiting bone scan as MRI cannot be done per team History of kidney stone. The patient may have passed a kidney stone with residual findings. No localizing findings at this time. Morbid obesity. Asthma with seasonal allergies. Lt Ovarian cyst on CT. Thrombocytopenia ? drug induced Paraproteinemia Hypercalcemia, hyperparathyroidism, Parathyroid adenoma Hyperuricemia abnormal LFTs Plan: Plan of Care Continue doxycycline for total of 7 days Cultures remain negative Continue supportive care. ID will sign off call with any questions CHITRA CORDOVA MD Dec 25, 2019 08:30
[2019-12-25 11:00] VITALS: BP 140/90
[2019-12-25] MEDS: LIDOCAINE (700MG/PATCH) PATCH. TD SCH (11:41)
[2019-12-25] MEDS: FAMOTIDINE 20 MG TABLET. PO SCH (11:41)
[2019-12-25] MEDS: MELOXICAM 7.5 MG TABLET PO SCH (11:41)
[2019-12-25] MEDS: CHOLECALCIFEROL (VITAMIN D3) 5,000 UNIT CAPSULE PO SCH (11:42)
[2019-12-25] MEDS: DOXYCYCLINE HYCLATE 100 MG TABLET PO SCH (11:42)
[2019-12-25] MEDS: LACTOBACILLUS RHAMNOSUS GG 1 CAPSULE. PO SCH (11:42)
--- NOTE | 2019-12-25 13:47 | PDOC ---
[employer] PROGRESS NOTE Date of Service DOS: DATE: 12/25/19 TIME: 13:45 Chief Complaint Chief Complaint A/P: Acute abdominal pain with unclear etiology Back pain - focal T-12-L1 back pain, elevated CRP, review CT, will check SPEP, UPEP, light chains, needs MRI spine. 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 Asthma with seasonal allergies. Lt Ovarian cyst on CT. Paraproteinemia Hypercalcemia, hyperparathyroidism, Parathyroid adenoma Hyperuricemia History of Present Illness History of Present Illness Ms Yo is a 44-year-old female with past medical history of kidney stone 1 year ago and who has had 8 miscarriages and 2 and D&Cs in the past who comes with complaints of right flank pain. She has been dealing with this for about a month but it has worsened the last couple of days. She describes the pain as sharp in nature that starts in her lower back and will radiate straight to her right lower quadrant of her abdomen. She denies nausea vomiting or changes in her bowel habits from this pain. She was started on muscle relaxants for possible concern of muscle strain. However, she does not state that this helps her pain. She has had one episode of a kidney stone that was passed in the past 1 year ago. However, the stone was never analyzed. Patient denies any hematuria, fevers, syncope, chest pain, vaginal bleeding or discharge, or recent risky sexual behavior. 12/19: Patient had fever of 100.6 overnight. Patient continues to have the same back pains as her admission. No changes in character or quantity. WBC is 21.9 today decreased from 25. Patient's chart, labs, images were reviewed and discussed with RN 12/20: Febrile to 101.2 F this morning. C/o back pain. 12/21: Febrile febrile 100.5 F today. WBC 13.4, Hb 13.4, platelets down to 64. CRP returned to 217. Back pain a bit better. Sesatmibi scan with left parathyroid uptake concerning for adenoma Afebrile for 24 hours back pain is improved to 4 out of 10. She now has right SI joint pain. Platelets 60 today. Discussed with ID to DC Zosyn and continue doxycycline. Unable to do MRI, will do scan. 9/3: Patient states she feels well and her abdominal pain has resolved. Afebrile overnight. Discussed negative bone scan results. Platelets appear to have stabilized. Discussed with patient further monitoring overnight and discharged tomorrow if still stable. 12/24: Patient is feeling well, and denies any abdominal pain. Platelets are responding due to change antibiotics. Instructed patient to follow-up with ENT and endocrinology. Stable for discharge. Vitals/I&O Vitals/I&O: Vital Signs Date Time Temp Pulse Resp B/P (MAP) Pulse Ox O2 Delivery O2 Flow Rate FiO2 12/25/19 11:00 98.0 82 18 140/90 (107) 98 Room Air 98.0 I & O 12/24/19 12/24/19 12/25/19 15:00 23:00 07:00 Intake Total 0 ml 400 ml Balance 0 ml 400 ml Physical Exam Physical Exam: GENERAL: Alert, oriented x 3 female, sitting upright in chair in no acute distress, comfortable HEENT: Normocephalic, atraumatic. Anicteric. No thrush. NECK: Supple. No JVD. LUNGS: Clear bilaterally. No wheezing. HEART: S1, S2. No gallops or murmurs. ABDOMEN: Soft, nontender, nondistended. No rebound, no guarding. EXTREMITIES: No edema, no cyanosis. DERMATOLOGIC: Warm, dry. No generalized rash. NEUROLOGIC: Alert and oriented x 3, grossly nonfocal. PSYCHIATRIC: Cooperative, appropriate mood and affect. MUSCULOSKELETAL: No joint swelling, no decrease in range of motion. Previous scars well-healed General: Alert, Oriented X3 Heart: Regular rate, Normal S1, Normal S2 Abdomen: Normal bowel sounds, Soft Extremities: No clubbing Skin: No rashes Labs Labs: Laboratory Tests Test 12/24/19 15:20 12/25/19 04:15 White Blood Count 7.1 x10^3/uL (4.0-11.0) 5.9 x10^3/uL (4.0-11.0) Red Blood Count 4.38 x10^6/uL (3.50-5.40) 4.28 x10^6/uL (3.50-5.40) Hemoglobin 13.2 g/dL (12.0-15.5) 12.9 g/dL (12.0-15.5) Hematocrit 38.7 % (36.0-47.0) 38.0 % (36.0-47.0) Mean Corpuscular Volume 88 fL (79-100) 89 fL (79-100) Mean Corpuscular Hemoglobin 30 pg (25-35) 30 pg (25-35) Mean Corpuscular Hemoglobin Concent 34 g/dL (31-37) 34 g/dL (31-37) Red Cell Distribution Width 14.8 % (11.5-14.5) 14.3 % (11.5-14.5) Platelet Count 86 x10^3/uL (140-400) 97 x10^3/uL (140-400) Neutrophils (%) (Auto) 52 % (31-73) 49 % (31-73) Lymphocytes (%) (Auto) 33 % (24-48) 40 % (24-48) Monocytes (%) (Auto) 14 % (0-9) 11 % (0-9) Eosinophils (%) (Auto) 0 % (0-3) 0 % (0-3) Basophils (%) (Auto) 0 % (0-3) 0 % (0-3) Neutrophils # (Auto) 3.7 x10^3/uL (1.8-7.7) 2.9 x10^3/uL (1.8-7.7) Lymphocytes # (Auto) 2.3 x10^3/uL (1.0-4.8) 2.3 x10^3/uL (1.0-4.8) Monocytes # (Auto) 1.0 x10^3/uL (0.0-1.1) 0.7 x10^3/uL (0.0-1.1) Eosinophils # (Auto) 0.0 x10^3/uL (0.0-0.7) 0.0 x10^3/uL (0.0-0.7) Basophils # (Auto) 0.0 x10^3/uL (0.0-0.2) 0.0 x10^3/uL (0.0-0.2) Segmented Neutrophils % 45 % (35-66) Band Neutrophils % 5 % (0-9) Lymphocytes % 38 % (24-48) Monocytes % 9 % (0-10) Metamyelocytes % 1 % (0-0) Myelocytes % 2 % (0-0) Platelet Estimate Decreased (ADEQUATE) Review of Systems Review of Systems: All systems negative Assessment and Plan Assessmemt and Plan Problems Medical Problems: (1) Bacteria in urine Status: Acute (2) Intractable abdominal pain Status: Acute (3) Leukocytosis Status: Acute Comment Review of Relevant I have reviewed the following items ludivina (where applicable) has been applied. Justifications for Admission Other Justification ALBERTO RICK MD Dec 25, 2019 13:47
--- NOTE | 2019-12-25 13:51 | PDOC ---
PROGRESS NOTES Date of Service DATE: 12/25/19 TIME: 13:50 Subjective Subjective She admits sore low back but plans to go home today. Objective Objective Vital Signs Date Time Temp Pulse Resp B/P (MAP) Pulse Ox O2 Delivery O2 Flow Rate FiO2 12/25/19 11:00 98.0 82 18 140/90 (107) 98 Room Air 98.0 Intake and Output 12/25/19 07:00 Intake Total 400 ml Balance 400 ml Intake Oral 400 ml # Voids 1 Physical Exam Physical Exam She is supine in bed but remains independent with her mobility and self care. Assessment Assessment Problems Medical Problems: (1) Bacteria in urine Status: Acute (2) Intractable abdominal pain Status: Acute (3) Leukocytosis Status: Acute Plan Plan of Care Agree with plans. Comment Review of Relevant I have reviewed the following items ludivina (where applicable) has been applied. Labs Laboratory Tests Test 12/24/19 10:08 12/24/19 15:20 12/25/19 04:15 Sodium Level 138 mmol/L (136-145) Potassium Level 3.9 mmol/L (3.5-5.1) Chloride Level 103 mmol/L (98-107) Carbon Dioxide Level 26 mmol/L (21-32) Anion Gap 9 (6-14) Blood Urea Nitrogen 10 mg/dL (7-20) Creatinine 0.6 mg/dL (0.6-1.0) Estimated GFR (Cockcroft-Gault) 109.6 Glucose Level 116 mg/dL (70-99) Calcium Level 10.4 mg/dL (8.5-10.1) Phosphorus Level 2.0 mg/dL (2.6-4.7) White Blood Count 7.1 x10^3/uL (4.0-11.0) 5.9 x10^3/uL (4.0-11.0) Red Blood Count 4.38 x10^6/uL (3.50-5.40) 4.28 x10^6/uL (3.50-5.40) Hemoglobin 13.2 g/dL (12.0-15.5) 12.9 g/dL (12.0-15.5) Hematocrit 38.7 % (36.0-47.0) 38.0 % (36.0-47.0) Mean Corpuscular Volume 88 fL (79-100) 89 fL (79-100) Mean Corpuscular Hemoglobin 30 pg (25-35) 30 pg (25-35) Mean Corpuscular Hemoglobin Concent 34 g/dL (31-37) 34 g/dL (31-37) Red Cell Distribution Width 14.8 % (11.5-14.5) 14.3 % (11.5-14.5) Platelet Count 86 x10^3/uL (140-400) 97 x10^3/uL (140-400) Neutrophils (%) (Auto) 52 % (31-73) 49 % (31-73) Lymphocytes (%) (Auto) 33 % (24-48) 40 % (24-48) Monocytes (%) (Auto) 14 % (0-9) 11 % (0-9) Eosinophils (%) (Auto) 0 % (0-3) 0 % (0-3) Basophils (%) (Auto) 0 % (0-3) 0 % (0-3) Neutrophils # (Auto) 3.7 x10^3/uL (1.8-7.7) 2.9 x10^3/uL (1.8-7.7) Lymphocytes # (Auto) 2.3 x10^3/uL (1.0-4.8) 2.3 x10^3/uL (1.0-4.8) Monocytes # (Auto) 1.0 x10^3/uL (0.0-1.1) 0.7 x10^3/uL (0.0-1.1) Eosinophils # (Auto) 0.0 x10^3/uL (0.0-0.7) 0.0 x10^3/uL (0.0-0.7) Basophils # (Auto) 0.0 x10^3/uL (0.0-0.2) 0.0 x10^3/uL (0.0-0.2) Segmented Neutrophils % 45 % (35-66) Band Neutrophils % 5 % (0-9) Lymphocytes % 38 % (24-48) Monocytes % 9 % (0-10) Metamyelocytes % 1 % (0-0) Myelocytes % 2 % (0-0) Platelet Estimate Decreased (ADEQUATE) Laboratory Tests Test 9/3/20 15:20 12/25/19 04:15 White Blood Count 7.1 x10^3/uL (4.0-11.0) 5.9 x10^3/uL (4.0-11.0) Red Blood Count 4.38 x10^6/uL (3.50-5.40) 4.28 x10^6/uL (3.50-5.40) Hemoglobin 13.2 g/dL (12.0-15.5) 12.9 g/dL (12.0-15.5) Hematocrit 38.7 % (36.0-47.0) 38.0 % (36.0-47.0) Mean Corpuscular Volume 88 fL (79-100) 89 fL (79-100) Mean Corpuscular Hemoglobin 30 pg (25-35) 30 pg (25-35) Mean Corpuscular Hemoglobin Concent 34 g/dL (31-37) 34 g/dL (31-37) Red Cell Distribution Width 14.8 % (11.5-14.5) 14.3 % (11.5-14.5) Platelet Count 86 x10^3/uL (140-400) 97 x10^3/uL (140-400) Neutrophils (%) (Auto) 52 % (31-73) 49 % (31-73) Lymphocytes (%) (Auto) 33 % (24-48) 40 % (24-48) Monocytes (%) (Auto) 14 % (0-9) 11 % (0-9) Eosinophils (%) (Auto) 0 % (0-3) 0 % (0-3) Basophils (%) (Auto) 0 % (0-3) 0 % (0-3) Neutrophils # (Auto) 3.7 x10^3/uL (1.8-7.7) 2.9 x10^3/uL (1.8-7.7) Lymphocytes # (Auto) 2.3 x10^3/uL (1.0-4.8) 2.3 x10^3/uL (1.0-4.8) Monocytes # (Auto) 1.0 x10^3/uL (0.0-1.1) 0.7 x10^3/uL (0.0-1.1) Eosinophils # (Auto) 0.0 x10^3/uL (0.0-0.7) 0.0 x10^3/uL (0.0-0.7) Basophils # (Auto) 0.0 x10^3/uL (0.0-0.2) 0.0 x10^3/uL (0.0-0.2) Segmented Neutrophils % 45 % (35-66) Band Neutrophils % 5 % (0-9) Lymphocytes % 38 % (24-48) Monocytes % 9 % (0-10) Metamyelocytes % 1 % (0-0) Myelocytes % 2 % (0-0) Platelet Estimate Decreased (ADEQUATE) Microbiology 12/19/19 Blood Culture - Final, Complete NO GROWTH AFTER 5 DAYS 12/18/19 Urine Culture - Final, Complete Medications Current Medications Metoclopramide HCl (Reglan Vial) 10 mg 1X ONCE IVP Last administered on 12/18/19at 23:51; Start 12/18/19 at 23:45; Stop 12/18/19 at 23:46; Status DC Morphine Sulfate (Morphine Sulfate) 4 mg 1X ONCE IV Last administered on 12/18/19at 23:51; Start 12/18/19 at 23:45; Stop 12/18/19 at 23:46; Status DC Ringer's Solution 1,000 ml @ 1,000 mls/hr 1X ONCE IV Last administered on 12/19/19at 01:46; Start 12/19/19 at 01:00; Stop 12/19/19 at 01:59; Status DC Ringer's Solution 1,000 ml @ 150 mls/hr Q6H40M IV Last administered on 12/19/19at 22:00; Start 12/19/19 at 02:00; Stop 12/20/19 at 01:59; Status DC Ceftriaxone Sodium (Rocephin) 1 gm 1X ONCE IVP Last administered on 12/19/19at 03:05; Start 12/19/19 at 02:30; Stop 12/19/19 at 02:31; Status DC Morphine Sulfate (Morphine Sulfate) 4 mg PRN Q2HR PRN IV SEVERE PAIN 7-10 Last administered on 12/19/19at 21:59; Start 12/19/19 at 02:15; Stop 12/20/19 at 00:06; Status DC Metoclopramide HCl (Reglan Vial) 10 mg TID PRN PRN IVP NAUSEA/VOMITING Last administered on 12/22/19 21:36; Start 12/19/19 at 02:15 Acetaminophen/ Hydrocodone Bitart (Lortab 5/325) 1 tab PRN Q4HRS PRN PO MILD TO MODERATE PAIN Last administered on 12/23/19 21:16; Start 12/19/19 at 13:00 Lidocaine (Lidoderm) 1 patch DAILY TD Last administered on 12/25/19 11:41; Start 12/20/19 at 09:00 Miscellaneous (Lidoderm Patch Removal) 1 ea QHS MC Last administered on 12/24/19 21:00; Start 12/20/19 at 21:00 Enoxaparin Sodium (Lovenox 40mg Syringe) 40 mg Q24H SQ Last administered on 12/20/19 09:07; Start 12/20/19 at 09:00; Stop 12/20/19 at 15:01; Status DC Famotidine (Pepcid) 20 mg BID PO Last administered on 12/25/19 11:41; Start 12/19/19 at 21:00 Meloxicam (Mobic) 15 mg DAILY PO Last administered on 12/25/19 11:41; Start 12/20/19 at 09:00 Montelukast Sodium (Singulair) 10 mg QHS PO Last administered on 12/24/19 21:22; Start 12/19/19 at 21:00 Alprazolam (Xanax) 0.25 mg PRN Q8HRS PRN PO ANXIETY / AGITATION Last administered on 12/21/19 23:47; Start 12/19/19 at 22:00 Piperacillin Sod/ Tazobactam Sod 3.375 gm/Sodium Chloride 50 ml @ 100 mls/hr Q6HRS IV Last administered on 12/23/19 11:45; Start 12/20/19 at 01:00; Stop 12/23/19 at 12:16; Status DC Acetaminophen (Tylenol) 650 mg PRN Q6HRS PRN PO FEVER > 100.3'F Last adminis tered on 12/21/19 23:20; Start 12/20/19 at 00:15 Morphine Sulfate (Morphine Sulfate) 4 mg PRN Q2HR PRN IV SEVERE PAIN 7-10 Last administered on 12/20/19at 21:40; Start 12/20/19 at 00:15 Lactobacillus Rhamnosus (Culturelle) 1 cap BID PO Last administered on 12/25/19at 11:42; Start 12/20/19 at 21:00 Iohexol (Omnipaque 300 Mg/ml) 75 ml 1X ONCE IV Last administered on 12/20/19at 14:30; Start 12/20/19 at 14:30; Stop 12/20/19 at 14:31; Status DC Iohexol (Omnipaque 240 Mg/ml) 50 ml 1X ONCE PO Last administered on 12/20/19at 14:30; Start 12/20/19 at 14:30; Stop 12/20/19 at 14:31; Status DC Enoxaparin Sodium (Lovenox 60mg Syringe) 60 mg BID SQ Last administered on 12/21/19at 22:33; Start 12/20/19 at 21:00; Stop 12/22/19 at 08:03; Status DC Vitamin D (Vitamin D3) 5,000 unit DAILY PO Last administered on 12/25/19at 11:42; Start 12/21/19 at 12:30 Ketorolac Tromethamine (Toradol 30mg Vial) 30 mg PRN Q6HRS PRN IVP PAIN; Start 12/21/19 at 12:30; Stop 12/26/19 at 12:29 Doxycycline Hyclate (Vibra-Tab) 100 mg BID PO Last administered on 12/25/19at 11:42; Start 12/21/19 at 21:00 Potassium Phosphate 13.6 mmol/Sodium Chloride 254.5333 ml @ 127.... Q2H IV Last administered on 12/21/19at 20:20; Start 12/21/19 at 15:00; Stop 12/21/19 at 18:59; Status DC Lorazepam (Ativan Inj) 2 mg PRN Q5MIN PRN IVP ANXIETY / AGITATION; Start 12/22/19 at 11:30 Methylprednisolone Acetate (DEPO-Medrol 40MG VIAL) 40 mg 1X ONCE IM Last administered on 12/23/19at 10:00; Start 12/23/19 at 10:00; Stop 12/23/19 at 10:01; Status DC Bupivacaine HCl (Sensorcaine-Mpf 0.25%) 10 ml 1X ONCE IJ Last administered on 12/23/19at 10:00; Start 12/23/19 at 10:00; Stop 12/23/19 at 10:01; Status DC Active Scripts Active Percocet 5-325 Mg Tablet (Oxycodone/Acetaminophen) 1 Each Tablet 1-2 Each PO Q6HRS PRN pain Promethazine Hcl 25 Mg Tablet 1 Tab PO PRN Q6HRS PRN Ciprofloxacin Hcl 500 Mg Tablet 1 Tab PO BID Vitals/I & O Vital Sign - Last 24 Hours 12/24/19 12/24/19 12/24/19 12/24/19 15:00 19:00 20:00 23:00 Temp 98.3 97.6 98.3 98.3 97.6 98.3 Pulse 72 89 87 Resp 16 19 19 B/P (MAP) 127/78 (94) 143/82 (102) 137/66 (89) Pulse Ox 98 97 98 O2 Delivery Room Air Room Air Room Air Room Air 12/25/19 12/25/19 12/25/19 03:00 07:00 11:00 Temp 98.1 98.2 98.0 98.1 98.2 98.0 Pulse 80 80 82 Resp 19 18 18 B/P (MAP) 119/70 (86) 138/87 (104) 140/90 (107) Pulse Ox 97 95 98 O2 Delivery Room Air Room Air Room Air Intake and Output 12/24/19 12/24/19 12/25/19 15:00 23:00 07:00 Intake Total 0 ml 400 ml Balance 0 ml 400 ml Justifications for Admission Other Justification CHER MALDONADO MD Dec 25, 2019 13:51
[2019-12-25] MEDS ORDERED: DOXY100T PO (14:06)
--- NOTE | 2019-12-25 14:17 | PDOC3 ---
Discharge Summary Visit Information Date of Admission: Dec 19, 2019 Date of Discharge: Dec 25, 2019 Final Diagnosis Problems Medical Problems: (1) Bacteria in urine Status: Acute (2) Intractable abdominal pain Status: Acute (3) Leukocytosis Status: Acute Brief Hospital Course Allergies Allergies Coded Allergies Type Severity Reaction Last Updated Verified benzonatate Allergy Intermediate 12/19/19 Yes clarithromycin Allergy Intermediate 12/19/19 Yes erythromycin base Allergy Intermediate 12/19/19 Yes ondansetron Allergy Intermediate 12/19/19 Yes I S O L A T I O N *CONTACT* Allergy Unknown 11/20/17 Yes codeine Adverse Reaction Intermediate FEELS LIKE SHE IS ON SPEED 11/17/17 Yes Vital Signs Vital Signs Date Time Temp Pulse Resp B/P (MAP) Pulse Ox O2 Delivery O2 Flow Rate FiO2 12/25/19 11:00 98.0 82 18 140/90 (107) 98 Room Air 98.0 Lab Results Laboratory Tests Test 12/24/19 10:08 12/24/19 15:20 12/25/19 04:15 Sodium Level 138 mmol/L (136-145) Potassium Level 3.9 mmol/L (3.5-5.1) Chloride Level 103 mmol/L (98-107) Carbon Dioxide Level 26 mmol/L (21-32) Anion Gap 9 (6-14) Blood Urea Nitrogen 10 mg/dL (7-20) Creatinine 0.6 mg/dL (0.6-1.0) Estimated GFR (Cockcroft-Gault) 109.6 Glucose Level 116 mg/dL (70-99) Calcium Level 10.4 mg/dL (8.5-10.1) Phosphorus Level 2.0 mg/dL (2.6-4.7) White Blood Count 7.1 x10^3/uL (4.0-11.0) 5.9 x10^3/uL (4.0-11.0) Red Blood Count 4.38 x10^6/uL (3.50-5.40) 4.28 x10^6/uL (3.50-5.40) Hemoglobin 13.2 g/dL (12.0-15.5) 12.9 g/dL (12.0-15.5) Hematocrit 38.7 % (36.0-47.0) 38.0 % (36.0-47.0) Mean Corpuscular Volume 88 fL (79-100) 89 fL (79-100) Mean Corpuscular Hemoglobin 30 pg (25-35) 30 pg (25-35) Mean Corpuscular Hemoglobin Concent 34 g/dL (31-37) 34 g/dL (31-37) Red Cell Distribution Width 14.8 % (11.5-14.5) 14.3 % (11.5-14.5) Platelet Count 86 x10^3/uL (140-400) 97 x10^3/uL (140-400) Neutrophils (%) (Auto) 52 % (31-73) 49 % (31-73) Lymphocytes (%) (Auto) 33 % (24-48) 40 % (24-48) Monocytes (%) (Auto) 14 % (0-9) 11 % (0-9) Eosinophils (%) (Auto) 0 % (0-3) 0 % (0-3) Basophils (%) (Auto) 0 % (0-3) 0 % (0-3) Neutrophils # (Auto) 3.7 x10^3/uL (1.8-7.7) 2.9 x10^3/uL (1.8-7.7) Lymphocytes # (Auto) 2.3 x10^3/uL (1.0-4.8) 2.3 x10^3/uL (1.0-4.8) Monocytes # (Auto) 1.0 x10^3/uL (0.0-1.1) 0.7 x10^3/uL (0.0-1.1) Eosinophils # (Auto) 0.0 x10^3/uL (0.0-0.7) 0.0 x10^3/uL (0.0-0.7) Basophils # (Auto) 0.0 x10^3/uL (0.0-0.2) 0.0 x10^3/uL (0.0-0.2) Segmented Neutrophils % 45 % (35-66) Band Neutrophils % 5 % (0-9) Lymphocytes % 38 % (24-48) Monocytes % 9 % (0-10) Metamyelocytes % 1 % (0-0) Myelocytes % 2 % (0-0) Platelet Estimate Decreased (ADEQUATE) Laboratory Tests Test 12/24/19 15:20 12/25/19 04:15 White Blood Count 7.1 x10^3/uL (4.0-11.0) 5.9 x10^3/uL (4.0-11.0) Red Blood Count 4.38 x10^6/uL (3.50-5.40) 4.28 x10^6/uL (3.50-5.40) Hemoglobin 13.2 g/dL (12.0-15.5) 12.9 g/dL (12.0-15.5) Hematocrit 38.7 % (36.0-47.0) 38.0 % (36.0-47.0) Mean Corpuscular Volume 88 fL (79-100) 89 fL (79-100) Mean Corpuscular Hemoglobin 30 pg (25-35) 30 pg (25-35) Mean Corpuscular Hemoglobin Concent 34 g/dL (31-37) 34 g/dL (31-37) Red Cell Distribution Width 14.8 % (11.5-14.5) 14.3 % (11.5-14.5) Platelet Count 86 x10^3/uL (140-400) 97 x10^3/uL (140-400) Neutrophils (%) (Auto) 52 % (31-73) 49 % (31-73) Lymphocytes (%) (Auto) 33 % (24-48) 40 % (24-48) Monocytes (%) (Auto) 14 % (0-9) 11 % (0-9) Eosinophils (%) (Auto) 0 % (0-3) 0 % (0-3) Basophils (%) (Auto) 0 % (0-3) 0 % (0-3) Neutrophils # (Auto) 3.7 x10^3/uL (1.8-7.7) 2.9 x10^3/uL (1.8-7.7) Lymphocytes # (Auto) 2.3 x10^3/uL (1.0-4.8) 2.3 x10^3/uL (1.0-4.8) Monocytes # (Auto) 1.0 x10^3/uL (0.0-1.1) 0.7 x10^3/uL (0.0-1.1) Eosinophils # (Auto) 0.0 x10^3/uL (0.0-0.7) 0.0 x10^3/uL (0.0-0.7) Basophils # (Auto) 0.0 x10^3/uL (0.0-0.2) 0.0 x10^3/uL (0.0-0.2) Segmented Neutrophils % 45 % (35-66) Band Neutrophils % 5 % (0-9) Lymphocytes % 38 % (24-48) Monocytes % 9 % (0-10) Metamyelocytes % 1 % (0-0) Myelocytes % 2 % (0-0) Platelet Estimate Decreased (ADEQUATE) Brief Hospital Course Ms. Vazquez is a 44 old female who presented with right flank and back pain with some radiation to the abdomen. She had a similar episode of this a month prio without a clear etiology. CT abdomen on admission showed no acute findings. Consultation was placed to general surgery, who recommended no surgical intervention as appendicitis is unlikely. Consults placed to infectious disease due to leukocytosis and bandemia. Etiology of these lab findings are unclear, however patient was placed on broad-spectrum antibiotics for possible pelvic inflammatory disease. Consultations were placed to physical physical medicine and rehabilitation for intractable lower back pain. Patient was noted to have suspected primary hyperparathyroidism, so consultation was placed to nephrology. A parathyroid scan showed findings suspicious for parathyroid adenoma, and patient was recommended to follow-up outpatient with ENT. During the course of her stay patient developed thrombocytopenia. Consultation was placed to heme/oncology. Her thrombocytopenia was deemed secondary to antibiotics, so her Zosyn was switched to doxycycline. Bone scan on admission showed no evidence of discitis or osteomyelitis. Patient symptoms resolved with treatment and medical management. She was instructed to finish her course of doxycycline and follow-up with ENT and endocrinology for parathyroid adenoma. Patient was stable for discharge. Discharge Information Condition at Discharge: Improved Disposition/Orders: D/C to Home Scheduled Doxycycline Hyclate (Doxycycline Hyclate) 100 Mg Tablet, 100 MG PO BID for PID for 3 Days, #6 Prescribed by: ALBERTO RICK MD on 12/25/19 6546 Scheduled PRN Oxycodone/Apap 5-325 (Percocet 5-325 Mg Tablet ) 1 Each Tablet, 1-2 EACH PO Q6HRS PRN for PAIN, #20 pain Prescribed by: CONI MENDOZA D.O. on 11/17/17 1417 Promethazine Hcl (Promethazine Hcl) 25 Mg Tablet, 1 TAB PO PRN Q6HRS PRN for NAUSEA, #12 Prescribed by: CONI MENDOZA D.O. on 11/17/171416 Discontinued Medications Ciprofloxacin Hcl (Ciprofloxacin Hcl) 500 Mg Tablet, 1 TAB PO BID, #20 Prescribed by: CONI MENDOZA D.O. on 11/17/177 Justicifation of Admission Dx: Justifications for Admission: Justification of Admission Dx: Yes ALBERTO RICK MD Dec 25, 2019 14:17
--- NOTE | 2019-12-25 14:45 | PDOC ---
DATE OF SERVICE DATE: 12/25/19 TIME: 14:44 SUBJECTIVE ROS No complaints OBJECTIVE Vital Signs Vital Signs Date Time Temp Pulse Resp B/P (MAP) Pulse Ox O2 Delivery O2 Flow Rate FiO2 12/25/19 11:00 98.0 82 18 140/90 (107) 98 Room Air 98.0 I & 0 Intake and Output 12/25/19 07:00 Intake Total 400 ml Balance 400 ml Intake Oral 400 ml # Voids 1 PHYSICAL EXAM Physical Exam GENERAL: NAD HEENT: Normocephalic, atraumatic. Anicteric. OM moist NECK: Supple. LUNGS: CTA, Non labored HEART: S1, S2. No gallops or murmurs. ABDOMEN: Soft, nontender, nondistended. No rebound, no guarding. EXTREMITIES: No edema, no cyanosis. DERMATOLOGIC: Warm, dry. No generalized rash. NEUROLOGIC: Alert and oriented x 3, grossly nonfocal. PSYCHIATRIC: Cooperative, MUSCULOSKELETAL: No joint swelling, no decrease in range of motion. No Cruz, No SP or CVA tenderness DIAGNOSIS/ASSESSMENT Assessment & Plan Hyperparathyroidism - Suspect primary Calcium elevated , renal function normal , Hgb Normal , No M spike PTH scan suspicious of adenoma recommend ENT and Endocrine follow up Vit D def - severe On Replacement now Vit d, Manuel Petty HypoPhosphatemia - Monitor , anticipate improvement with Vit d replacement Hx of Nephrolithiasis - Unremarkable CT ? Passed Stone Back Pain - No M spike Leukocytosis with bandemia/ Fever- per ID Lt Ovarian cyst on CT. COMMENT/RELEVANT DATA Meds Current Medications Medications (Trade) Dose Ordered Sig/Kaci Start Time Stop Time Status Last Admin Dose Admin Acetaminophen (Tylenol) 650 mg PRN Q6HRS PRN 12/20/19 00:15 12/21/19 23:20 650 MG Acetaminophen/ Hydrocodone Bitart (Lortab 5/325) 1 tab PRN Q4HRS PRN 12/19/19 13:00 12/23/19 21:16 1 TAB Alprazolam (Xanax) 0.25 mg PRN Q8HRS PRN 12/19/19 22:00 12/21/19 23:47 0.25 MG Bupivacaine HCl (Sensorcaine-Mpf 0.25%) 10 ml 1X ONCE 12/23/19 10:00 12/23/19 10:01 DC 12/23/19 10:00 10 ML Ceftriaxone Sodium (Rocephin) 1 gm 1X ONCE 12/19/19 02:30 12/19/19 02:31 DC 12/19/19 03:05 1 GM Doxycycline Hyclate (Vibra-Tab) 100 mg BID 12/21/19 21:00 12/25/19 11:42 100 MG Enoxaparin Sodium (Lovenox 40mg Syringe) 40 mg Q24H 12/20/19 09:00 12/20/19 15:01 DC 12/20/19 09:07 40 MG Enoxaparin Sodium (Lovenox 60mg Syringe) 60 mg BID 12/20/19 21:00 12/22/19 08:03 DC 12/21/19 22:33 60 MG Famotidine (Pepcid) 20 mg BID 12/19/19 21:00 12/25/19 11:41 20 MG Iohexol (Omnipaque 240 Mg/ml) 50 ml 1X ONCE 12/20/19 14:30 12/20/19 14:31 DC 12/20/19 14:30 50 ML Iohexol (Omnipaque 300 Mg/ml) 75 ml 1X ONCE 12/20/19 14:30 12/20/19 14:31 DC 12/20/19 14:30 75 ML Ketorolac Tromethamine (Toradol 30mg Vial) 30 mg PRN Q6HRS PRN 12/21/19 12:30 12/26/19 12:29 Lactobacillus Rhamnosus (Culturelle) 1 cap BID 12/20/19 21:00 12/25/19 11:42 1 CAP Lidocaine (Lidoderm) 1 patch DAILY 12/20/19 09:00 12/25/19 11:41 1 PATCH Lorazepam (Ativan Inj) 2 mg PRN Q5MIN PRN 12/22/19 11:30 Meloxicam (Mobic) 15 mg DAILY 12/20/19 09:00 12/25/19 11:41 15 MG Methylprednisolone Acetate (DEPO-Medrol 40MG VIAL) 40 mg 1X ONCE 12/23/19 10:00 12/23/19 10:01 DC 12/23/19 10:00 40 MG Metoclopramide HCl (Reglan Vial) 10 mg TID PRN PRN 12/19/19 02:15 12/22/19 21:36 10 MG Miscellaneous (Lidoderm Patch Removal) 1 ea QHS 12/20/19 21:00 12/24/19 21:00 1 EA Montelukast Sodium (Singulair) 10 mg QHS 12/19/19 21:00 12/24/19 21:22 10 MG Morphine Sulfate (Morphine Sulfate) 4 mg PRN Q2HR PRN 12/20/19 00:15 12/20/19 21:40 4 MG Piperacillin Sod/ Tazobactam Sod 3.375 gm/Sodium Chloride 50 ml @ 100 mls/hr Q6HRS 12/20/19 01:00 12/23/19 12:16 DC 12/23/19 11:45 100 MLS/HR Potassium Phosphate 13.6 mmol/Sodium Chloride 254.5333 ml @ 127.... Q2H 12/21/19 15:00 12/21/19 18:59 DC 12/21/19 20:20 127.267 MLS/HR Ringer's Solution 1,000 ml @ 150 mls/hr Q6H40M 12/19/19 02:00 12/20/19 01:59 DC 12/19/19 22:00 150 MLS/HR Vitamin D (Vitamin D3) 5,000 unit DAILY 12/21/19 12:30 12/25/19 11:42 5,000 UNIT Lab Laboratory Tests Test 12/24/19 15:20 12/25/19 04:15 White Blood Count 7.1 x10^3/uL (4.0-11.0) 5.9 x10^3/uL (4.0-11.0) Red Blood Count 4.38 x10^6/uL (3.50-5.40) 4.28 x10^6/uL (3.50-5.40) Hemoglobin 13.2 g/dL (12.0-15.5) 12.9 g/dL (12.0-15.5) Hematocrit 38.7 % (36.0-47.0) 38.0 % (36.0-47.0) Mean Corpuscular Volume 88 fL (79-100) 89 fL (79-100) Mean Corpuscular Hemoglobin 30 pg (25-35) 30 pg (25-35) Mean Corpuscular Hemoglobin Concent 34 g/dL (31-37) 34 g/dL (31-37) Red Cell Distribution Width 14.8 % (11.5-14.5) 14.3 % (11.5-14.5) Platelet Count 86 x10^3/uL (140-400) 97 x10^3/uL (140-400) Neutrophils (%) (Auto) 52 % (31-73) 49 % (31-73) Lymphocytes (%) (Auto) 33 % (24-48) 40 % (24-48) Monocytes (%) (Auto) 14 % (0-9) 11 % (0-9) Eosinophils (%) (Auto) 0 % (0-3) 0 % (0-3) Basophils (%) (Auto) 0 % (0-3) 0 % (0-3) Neutrophils # (Auto) 3.7 x10^3/uL (1.8-7.7) 2.9 x10^3/uL (1.8-7.7) Lymphocytes # (Auto) 2.3 x10^3/uL (1.0-4.8) 2.3 x10^3/uL (1.0-4.8) Monocytes # (Auto) 1.0 x10^3/uL (0.0-1.1) 0.7 x10^3/uL (0.0-1.1) Eosinophils # (Auto) 0.0 x10^3/uL (0.0-0.7) 0.0 x10^3/uL (0.0-0.7) Basophils # (Auto) 0.0 x10^3/uL (0.0-0.2) 0.0 x10^3/uL (0.0-0.2) Segmented Neutrophils % 45 % (35-66) Band Neutrophils % 5 % (0-9) Lymphocytes % 38 % (24-48) Monocytes % 9 % (0-10) Metamyelocytes % 1 % (0-0) Myelocytes % 2 % (0-0) Platelet Estimate Decreased (ADEQUATE) Results All relevant outside records, renal labs, imaging studies, telemetry/EKG's were reviewed. Justicifation of Admission Dx: Justifications for Admission: Justification of Admission Dx: Yes LALITA BETTENCOURT MD Dec 25, 2019 14:45
== END 2019-12-25 15:00 | disposition home or self-care (01) | DRG 872 ==
LOC: ER 21:57 → 6 SOUTH 12-19 02:53 → ED HOLD 12-19 03:00 → 6 SOUTH 12-19 19:24 → OBSVTOIN 12-19 21:15 → 4 NORTH 12-23 16:59
PROVIDERS: ADMIT Family Medicine; ATTEND Family Medicine
DX: A41.9 Sepsis, unspecified organism (principal); Z68.43 Body mass index [BMI] 50.0-59.9, adult; D35.1 Benign neoplasm of parathyroid gland; D69.6 Thrombocytopenia, unspecified; D89.2 Hypergammaglobulinemia, unspecified; E21.0 Primary hyperparathyroidism; E66.01 Morbid (severe) obesity due to excess calories; G89.29 Other chronic pain; J45.909 Unspecified asthma, uncomplicated; K76.0 Fatty (change of) liver, not elsewhere classified; M47.816 Spondylosis without myelopathy or radiculopathy, lumbar region; M53.3 Sacrococcygeal disorders, not elsewhere classified; N20.0 Calculus of kidney; N83.202 Unspecified ovarian cyst, left side; Z87.442 Personal history of urinary calculi
CPT/HCPCS: 36415; 74176; 74177; 78070; 78306; 80048; 80053; 80069; 81001; 81025; 82306; 82340; 82542; 83520; 83605; 83690; 83970; 84100; 84165; 84166; 84550; 85007; 85025; 86140; 87040; 87086; 87491; 87591; 96361; 96374; 96375; 99285; A9500; A9503; G0378; G0379; J0696; J1030; J1650; J2270; J2543; J2765; J3490; J7050; J7120; Q9966; Q9967; 97530-GP; J7030

== ENCOUNTER 2020-03-29 22:53 | Inpatient (IN) | payer BC ==
[~2020-03-29] VITALS: Ht 170.2 cm; Wt 134.0 kg
[~2020-03-29 22:53] MED LIST changes: +DOXY100T PO
[2020-03-29 23:00] VITALS: BP 150/74
--- NOTE | 2020-03-29 23:00 | NUR ---
Pt admitted to room 110 from [facility]. Currently on 100% NRB mask, tested positive for Covid 19 a week ago and developed more SOB. Pt alert and oriented with some difficulty breathing at rest. Sats remain in low 90s. SR on monitor. Patient Notified that she made it to [place]. Pt with frequent periods of dry coughing spells where she will desat into the low 80s but able to recover. Dr. Ramesh and Dr. Vail notified of admission, orders received. Call light within reach.
[2020-03-29 23:15] VITALS: BP 115/82
[2020-03-29 23:30] VITALS: BP 116/72
[2020-03-29] MEDS ORDERED: ONDANSETRON PF 4 MG/2 ML VIAL. IVP PRN (23:30)
[2020-03-29 23:45] VITALS: BP 140/84
[2020-03-30] VITALS (24 sets, daily range): BP systolic 99–159; BP diastolic 57–94
[2020-03-30] MEDS: oxyCODONE/APAP 5/325 1 TAB TABLET PO PRN ×4 (02:34→21:44)
[2020-03-30 07:43] LABS: BASO % 0 % (0-3); EOS % 0 % (0-3); HEMATOCRIT 38.6 % (36.0-47.0); HEMOGLOBIN 13.1 g/dL (12.0-15.5); LYMPH # 0.8 x10^3/uL (1.0-4.8); LYMPH % 13 % (24-48); MEAN CORPUSCULAR HEMOGLOBIN 30 pg (25-35); MEAN CORPUSCULAR HGB CONC 34 g/dL (31-37); MEAN CORPUSCULAR VOLUME 87 fL (79-100); MONO # 1.6 x10^3/uL (0.0-1.1); MONO % 27 % (0-9); NEUT # 3.5 x10^3/uL (1.8-7.7); NEUT % 60 % (31-73); PLATELET COUNT 155 x10^3/uL (140-400); RED BLOOD COUNT 4.45 x10^6/uL (3.50-5.40); RED CELL DISTRIBUTION WIDTH 14.9 % (11.5-14.5); WHITE BLOOD COUNT 5.9 x10^3/uL (4.0-11.0)
[2020-03-30 08:24] LABS: ALBUMIN 2.9 g/dL (3.4-5.0); ALBUMIN/GLOBULIN RATIO 0.7 (1.0-1.7); CALCIUM 8.7 mg/dL (8.5-10.1); CREATININE 0.6 mg/dL (0.6-1.0); GFR 109.1; POTASSIUM 3.8 mmol/L (3.5-5.1); TOTAL BILIRUBIN 0.6 mg/dL (0.2-1.0); TOTAL PROTEIN 6.9 g/dL (6.4-8.2)
--- NOTE | 2020-03-30 08:30 | NUR ---
Patient continues to hold O2 saturation in the upper 70's to lower 80's. Added high flow nasal cannula at 8L/min along with NRB. Spoke with patient about thoughts on intubation (if we would need to due increased work at breathing), she asked me to talk to her . Phone call made, phone went to voicemail. Will try again in an hour.
--- NOTE | 2020-03-30 09:11 | HP ---
ADMIT DATE: 03/29/2020 HISTORY OF PRESENT ILLNESS: The patient is a 45-year-old female patient, who presented to the Emergency Room of [facility] with worsening symptoms after being diagnosed with COVID-19 in the Emergency Department of [facility] on 03/24/2020. She came with increased shortness of breath, fever, generalized malaise and intractable nausea and vomiting. She also complained of abdominal pain. She denied any trauma. She was extensively investigated and has had lab work, which showed that her white cell count was within normal range. Her blood gases showed that the patient is hypoxic. She has profound hypokalemia with a serum potassium of 2.9. Her lactic acid was also high at 2.9 and her D-dimer was elevated at 1.28. However, her prothrombin time, INR and aPTT were normal. She has had a CT scan of the chest, abdomen and pelvis with contrast, which basically showed no pulmonary emboli identified within the main lobar or segmental pulmonary arteries. The patient has extensive patchy bilateral airspace disease, greater on the right lung; however, no pneumothorax and no suspicious lung nodules identified. The patient was transferred to [facility] with COVID-19 pneumonia and acute hypoxic respiratory failure with underlying bronchial asthma. The patient also reported that she has been a former smoker. PAST MEDICAL HISTORY: Significant for bronchial asthma. She does have also hyperparathyroidism and with resultant multiple stones that she has so far able to pass them spontaneously without any surgical intervention. PAST SURGICAL HISTORY: Significant for parathyroidectomy and right ulnar nerve transposition. FAMILY HISTORY: Unremarkable. SOCIAL HISTORY: She is . She is an ex-smoker, quit smoking more than a year ago. She drinks alcohol occasionally. She does not use any drugs. 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 ALLERGIES: SHE IS ALLERGIC ACTUALLY TO BENZONATATE, CLARITHROMYCIN AND ERYTHROMYCIN. MEDICATIONS: She was on amoxicillin, potassium clavulanate 1 tablet twice a day for 10 days as well as prednisone 50 mg once a day. REVIEW OF SYSTEMS: As per history of present illness. PHYSICAL EXAMINATION: GENERAL: On arrival to the Emergency Room, the patient was febrile, tachypneic, tachycardic, but there was no pallor, jaundice, cyanosis or thyromegaly. No jugular venous distention. No limb edema. VITAL SIGNS: Her heart rate was 120, blood pressure was 139/74, temperature was 101.5, respiratory rate was 32 and oxygen saturation was 58% on room air that has increased to 94% on 15 L of oxygen. HEAD, EYES, EARS, NOSE AND THROAT: Normocephalic, atraumatic. NECK: Supple. CARDIAC: Normal first and second sounds. No gallop or murmur. CHEST: Shows central trachea, equal bilateral expansion, air entry, vesicular breath sounds with crepitation mostly on the right side posteriorly and to a lesser extent on the left side posteriorly. I could not appreciate any rhonchi. ABDOMEN: Distended, soft and nontender. NEUROLOGIC: She was awake, alert, responding appropriately. All cranial nerves intact. EXTREMITIES: She moves extremities without difficulty. LABORATORY DATA: Showed a white cell count 5400, hemoglobin 14, hematocrit 42, MCV 88 and platelet count of 159,000. Her blood gases showed a pH of 7.44, pCO2 of 34, pO2 of 76, bicarbonate 23 and oxygen saturation was 95% on FiO2 of 100%. Her prothrombin time, INR and aPTT were normal. D-dimer was slightly elevated at 1.28. Her chemistry showed a serum sodium 142, potassium 2.9, chloride 101, bicarbonate 28, anion gap of 13, BUN 13, creatinine 1, estimated GFR was 60 mL per minute. Her glucose 123. Lactic acid was 2.9. Serum calcium was 9.2, magnesium was 2.2. Total bilirubin, AST, ALT and alkaline phosphatase were normal. CK was 219, total protein 7.7 and albumin 3.3. Serum lipase was 135. ASSESSMENT AND PLAN: In summary, this is a 45-year-old female patient with past medical history significant for bronchial asthma, who also has been a former smoker and who was diagnosed with COVID-19 on 03/23 and presented with worsening symptoms. She was transferred to [facility] with COVID-19 pneumonia plus minus healthcare-associated pneumonia, acute hypoxic respiratory failure, bronchial asthma and previous tobacco use disorder. She also has hyperparathyroidism, for which she underwent parathyroidectomy and multiple renal stone formations that she stated usually were able to pass spontaneously. She has never required any intubation before, although she was admitted to the hospital for her asthma exacerbation. She has never had any sleep study. Her plan is obviously to continue on oxygen supplementation. We will start with steroids, IV antibiotics, remdesivir and convalescent plasma. I will consult the commodity analyst. We will start her also on IV ceftriaxone and perhaps doxycycline. CHARLES HOUSER MD DR: TRINIDAD/jayne JOB#: [id number] / [id number]
[2020-03-30] MEDS: cefTRIAXone IV Push 1 GM VIAL. IVP SCH (09:17)
[2020-03-30] MEDS: DOXYCYCLINE HYCLATE 100 MG TABLET PO SCH ×2 (09:17→20:21)
[2020-03-30] MEDS: DEXAMETHASONE SOD PHOS 4 MG/ML VIAL IVP SCH (09:17)
--- NOTE | 2020-03-30 09:45 | NUR ---
Spoke with patient's , Andrea, about how patient is doing, what we are doing to help here maintain profusion. I explained the possibility of intubation if patient declines to that point, he stated that he wanted her intubated, if necessary, due to her young age and his wishes. I told the patient his response. She was accepting of this.
[2020-03-30] MEDS ORDERED: ENOXAPARIN 40 MG/0.4 ML SYRINGE. SQ SCH ×2 (10:30→11:00)
--- NOTE | 2020-03-30 10:33 | CONS ---
DATE OF CONSULTATION: 03/30/2020 PULMONARY CONSULTATION ATTENDING PHYSICIAN: Hebert Ramesh MD REASON FOR CONSULTATION: Respiratory failure, COVID-19 pneumonia. HISTORY OF PRESENT ILLNESS: The patient is a 45-year-old who is morbidly obese with a BMI of 45. The patient was recently diagnosed with COVID-19 infection on 03/24. She was brought into [facility] with increasing shortness of breath, fever, generalized malaise, nausea and vomiting. The patient's D-dimer was 1.28. Her CT of the chest was performed and was reviewed by me. The patient had extensive bilateral airspace disease, worse on the right than on the left. There was no pleural effusion. The patient had no solid lung nodules. There was no pulmonary embolism seen. She is currently requiring 100% nonrebreather mask. In addition, she is on 8 liters of oxygen via cannula. She does not appear to be in any obvious respiratory distress. She was started on dexamethasone and empiric antibiotic. She does not meet the criteria for remdesivir. PAST MEDICAL HISTORY: Significant for bronchial asthma, history of hyperparathyroidism and multiple stones. PAST SURGICAL HISTORY: Parathyroidectomy and right ulnar nerve transposition. FAMILY HISTORY: Unremarkable. SOCIAL HISTORY: She is . She is an ex-smoker. Quit tobacco more than a year ago. Occasionally alcohol use. 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 ALLERGIES: BENZONATATE, CLARITHROMYCIN, CODEINE, AND ERYTHROMYCIN. MEDICATIONS: Reviewed as listed in the MRAD. REVIEW OF SYSTEMS: Unable to obtain from the patient. PHYSICAL EXAMINATION: VITAL SIGNS: T-max is 99.6, blood pressure stable, pulse ox is 90%. GENERAL: Visual exam done due to COVID pandemia. She is in no obvious respiratory distress, but requiring 100% oxygen. She is obese. EXTREMITIES: Trace edema. SKIN: No skin rash. LABORATORY DATA: Reviewed. White cell count 5.9, hemoglobin 13.1 and platelets are 155. BUN 14, creatinine 0.6. IMPRESSION: 1. Acute hypoxic respiratory failure secondary to COVID-19 pneumonia leading to ARDS/acute lung injury. 2. Abnormal CT chest with diffuse and extensive bilateral airspace opacities consistent with COVID-19 pneumonia. 3. Underlying morbid obesity. 4. History of bronchial asthma. 5. No evidence of pulmonary embolism. RECOMMENDATIONS: 1. We will continue with present 100% oxygen. will place her on Vapotherm once available. 2. We will use p.r.n. BiPAP. We will watch her respiratory status closely for need for mechanical ventilation. 3. Continue empiric antibiotics. 4. DVT prophylaxis will be added. 5. Continue IV dexamethasone. 6. Not a candidate for remdesivir. 7. Discussed with RN and RT. Chart reviewed. Critical care time 35 minutes. AARON SUMMERS MD DR: AMERICA/jayne JOB#: [id number] / [id number] [place]
[2020-03-30 10:34] LABS: % EOS 2 % (0-5); % LYMPHS 16 % (24-48); % MONOS 2 % (0-10); % SEGS 80 % (35-66)
[2020-03-30 10:35] LABS: PLT ESTIMATE ADEQUATE (ADEQUATE)
[2020-03-30] MEDS: HEPARIN for SUB-Q USE 5,000 UNIT/ML VIAL. SQ SCH ×2 (11:55→20:22)
--- NOTE | 2020-03-30 15:46 | NUR ---
SS following for discharge planning. SS reviewed pt chart and discussed with pt RN. Pt is from home with spouse and is currently on Vapotherm at 100% and non-rebreather mask. COVID19 positive. Pt on IV Rocephin. Not stable. SS will continue to follow for discharge planning.
[2020-03-30] MEDS: LACTOBACILLUS RHAMNOSUS GG 1 CAPSULE. PO SCH (20:21)
[2020-03-30] MEDS ORDERED: HALOPERIDOL 2 MG/ML ORAL.CONC. PO PRN (21:30)
[2020-03-30] MEDS: ALPRAZolam 0.25 MG TABLET PO PRN (21:44)
[2020-03-31] VITALS (24 sets, daily range): BP systolic 97–158; BP diastolic 57–79
[2020-03-31 01:25] LABS: BASE EXCESS ABG 3 mmol/L (-3-3); FIO2 ABG 100; HCO3 ABG 29 mmol/L (21-28); PCO2 ABG 46 mmHg (35-46); PO2 ABG 59 mmHg (75-108); SAT O2 ABG 89 % (92-99)
[2020-03-31] MEDS: oxyCODONE/APAP 5/325 1 TAB TABLET PO PRN ×4 (02:55→20:56)
[2020-03-31] MEDS: STERILE WATER for RESP 1,000 ML BAG. INH PRN ×2 (04:43→15:12)
[2020-03-31 07:54] LABS: HEMATOCRIT 40.6 % (36.0-47.0); HEMOGLOBIN 13.4 g/dL (12.0-15.5); RED BLOOD COUNT 4.63 x10^6/uL (3.50-5.40); RED CELL DISTRIBUTION WIDTH 14.9 % (11.5-14.5); WHITE BLOOD COUNT 9.1 x10^3/uL (4.0-11.0)
[2020-03-31] MEDS: DOXYCYCLINE HYCLATE 100 MG TABLET PO SCH ×2 (08:03→20:37)
[2020-03-31] MEDS: DEXAMETHASONE SOD PHOS 4 MG/ML VIAL IVP SCH (08:03)
[2020-03-31] MEDS: LACTOBACILLUS RHAMNOSUS GG 1 CAPSULE. PO SCH ×2 (08:03→20:37)
[2020-03-31] MEDS: cefTRIAXone IV Push 1 GM VIAL. IVP SCH (08:04)
[2020-03-31] MEDS: HEPARIN for SUB-Q USE 5,000 UNIT/ML VIAL. SQ SCH ×2 (08:04→20:38)
[2020-03-31] MEDS: ACETAMINOPHEN 325 MG TABLET. PO PRN (08:20)
[2020-03-31 08:33] LABS: ALBUMIN 2.9 g/dL (3.4-5.0); ALBUMIN/GLOBULIN RATIO 0.7 (1.0-1.7); CALCIUM 9.2 mg/dL (8.5-10.1); CREATININE 0.7 mg/dL (0.6-1.0); GFR 91.3; POTASSIUM 4.3 mmol/L (3.5-5.1); TOTAL BILIRUBIN 0.7 mg/dL (0.2-1.0)
--- NOTE | 2020-03-31 09:15 | PN ---
DATE: 03/31/2020 SUBJECTIVE: The patient is resting, slightly propped up in bed, in no apparent respiratory distress. She is on Vapotherm on 40 liters oxygen and FiO2 of 100%. She is also on 100% nonrebreather mask and despite this her oxygen saturation was only 85%, on BiPAP machine, she is doing much better, but apparently, BiPAP was discontinued for her to eat her breakfast. PHYSICAL EXAMINATION: GENERAL: When I examined her, she was slightly tachypneic, but there is no pallor, jaundice, cyanosis or thyromegaly. No jugular venous distention. No lower limb edema. VITAL SIGNS: Her heart rate was 103, blood pressure was 152/73, temperature was 99.6, respiratory rate was 22 and oxygen saturation was 85%. HEAD, EYES, EARS, NOSE AND THROAT: Showed normocephalic, atraumatic. NECK: Supple. HEART: Normal first and second heart sounds. No gallop, rub or murmur. CHEST: Shows central trachea, equal bilateral chest expansion, air entry with crepitation, mostly on the right side posteriorly and to a lesser extent on the left side posteriorly. No rhonchi. ABDOMEN: Distended, soft, nontender. NEUROLOGIC: She is grossly intact. Her intake over the last 24 hours was incomplete and output were incompletely recorded. LABORATORY DATA: Her lab work this morning showed a white cell count of 9000, hemoglobin 13, hematocrit 40, MCV 88 and platelet count of 178,000. Her chemistry showed a serum sodium of 142, potassium 4.3, chloride 104, bicarbonate 30, anion gap of 8, BUN 18, creatinine 0.7, estimated GFR was 91 mL per minute. Her glucose was 87, calcium was 9.2. Total bilirubin, AST, ALT, alkaline phosphatase were all normal. Total protein 7, albumin was 2.9. Her blood gases showed a pH of 7.41, pCO2 of 46, pO2 of 59, bicarbonate was 29 and oxygen saturation was 89% on FiO2 of 100%. ASSESSMENT: 1. COVID-19 pneumonia. 2. Acute hypoxic respiratory failure. 3. Bronchial asthma exacerbation. 4. Hyperparathyroidism, status post parathyroidectomy. 5. Nephrolithiasis. PLAN: To continue with DVT prophylaxis. Continue IV antibiotic. Continue with dexamethasone. Continue with remdesivir and the patient's blood gases showed that her carbon dioxide is 46; however, her pH is still compensated and she might eventually require intubation and mechanical ventilation. CHARLES HOUSER MD DR: TRINIDAD/jayne JOB#: [id number] / [id number]
[2020-03-31] MEDS: AMINO AC 3%/ELECTROLYTE/GLYCER 1,000 ML IV SCH ×2 (10:10→23:49)
[2020-03-31] MEDS: DEXMEDETOMIDINE 400 MCG in IV NORMAL SALINE 100ML 96 ML IV PRN ×2 (10:59→21:47)
[2020-03-31] MEDS ORDERED: ATROPINE 0.5 MG/5 ML DISP.SYRINGE. IV PRN (11:00)
--- NOTE | 2020-03-31 11:13 | PDOC ---
PULMONARY PROGRESS NOTES DATE: 03/31/20 TIME: 11:05 Subjective remains on vapotherm 100%FIO2/NRM in addition Vitals Vital Signs Date Time Temp Pulse Resp B/P (MAP) Pulse Ox O2 Delivery O2 Flow Rate FiO2 03/31/20 10:49 82 Vapotherm 40.0 03/31/20 10:00 94 25 120/69 (86) 03/31/20 08:00 102.8 102.8 Comments visual exam done due to COVID19 no distress, no paradoxical breathing, no rash, no edema General: Alert, No acute distress Labs Laboratory Tests Test 03/30/20 06:46 03/30/20 09:00 03/31/20 01:12 03/31/20 06:55 White Blood Count 5.9 x10^3/uL (4.0-11.0) 9.1 x10^3/uL (4.0-11.0) Red Blood Count 4.45 x10^6/uL (3.50-5.40) 4.63 x10^6/uL (3.50-5.40) Hemoglobin 13.1 g/dL (12.0-15.5) 13.4 g/dL (12.0-15.5) Hematocrit 38.6 % (36.0-47.0) 40.6 % (36.0-47.0) Mean Corpuscular Volume 87 fL (79-100) 88 fL (79-100) Mean Corpuscular Hemoglobin 30 pg (25-35) 29 pg (25-35) Mean Corpuscular Hemoglobin Concent 34 g/dL (31-37) 33 g/dL (31-37) Red Cell Distribution Width 14.9 % (11.5-14.5) 14.9 % (11.5-14.5) Platelet Count 155 x10^3/uL (140-400) 178 x10^3/uL (140-400) Neutrophils (%) (Auto) 60 % (31-73) Lymphocytes (%) (Auto) 13 % (24-48) Monocytes (%) (Auto) 27 % (0-9) Eosinophils (%) (Auto) 0 % (0-3) Basophils (%) (Auto) 0 % (0-3) Neutrophils # (Auto) 3.5 x10^3/uL (1.8-7.7) Lymphocytes # (Auto) 0.8 x10^3/uL (1.0-4.8) Monocytes # (Auto) 1.6 x10^3/uL (0.0-1.1) Eosinophils # (Auto) 0.0 x10^3/uL (0.0-0.7) Basophils # (Auto) 0.0 x10^3/uL (0.0-0.2) Segmented Neutrophils % 80 % (35-66) Lymphocytes % 16 % (24-48) Monocytes % 2 % (0-10) Eosinophils % 2 % (0-5) Platelet Estimate Adequate (ADEQUATE) Sodium Level 142 mmol/L (136-145) 142 mmol/L (136-145) Potassium Level 3.8 mmol/L (3.5-5.1) 4.3 mmol/L (3.5-5.1) Chloride Level 105 mmol/L (98-107) 104 mmol/L (98-107) Carbon Dioxide Level 28 mmol/L (21-32) 30 mmol/L (21-32) Anion Gap 9 (6-14) 8 (6-14) Blood Urea Nitrogen 14 mg/dL (7-20) 18 mg/dL (7-20) Creatinine 0.6 mg/dL (0.6-1.0) 0.7 mg/dL (0.6-1.0) Estimated GFR (Cockcroft-Gault) 109.1 91.3 BUN/Creatinine Ratio 23 (6-20) 26 (6-20) Glucose Level 110 mg/dL (70-99) 87 mg/dL (70-99) Calcium Level 8.7 mg/dL (8.5-10.1) 9.2 mg/dL (8.5-10.1) Total Bilirubin 0.6 mg/dL (0.2-1.0) 0.7 mg/dL (0.2-1.0) Aspartate Amino Transf (AST/SGOT) 48 U/L (15-37) 49 U/L (15-37) Alanine Aminotransferase (ALT/SGPT) 35 U/L (14-59) 28 U/L (14-59) Alkaline Phosphatase 82 U/L (46-116) 83 U/L (46-116) Total Protein 6.9 g/dL (6.4-8.2) 7.0 g/dL (6.4-8.2) Albumin 2.9 g/dL (3.4-5.0) 2.9 g/dL (3.4-5.0) Albumin/Globulin Ratio 0.7 (1.0-1.7) 0.7 (1.0-1.7) Lactic Acid Level 1.4 mmol/L (0.4-2.0) O2 Saturation 89 % (92-99) Arterial Blood pH 7.41 (7.35-7.45) Arterial Blood pCO2 at Patient Temp 46 mmHg (35-46) Arterial Blood pO2 at Patient Temp 59 mmHg (75-108) Arterial Blood HCO3 29 mmol/L (21-28) Arterial Blood Base Excess 3 mmol/L (-3-3) FiO2 100 Laboratory Tests Test 03/31/20 01:12 03/31/20 06:55 O2 Saturation 89 % (92-99) Arterial Blood pH 7.41 (7.35-7.45) Arterial Blood pCO2 at Patient Temp 46 mmHg (35-46) Arterial Blood pO2 at Patient Temp 59 mmHg (75-108) Arterial Blood HCO3 29 mmol/L (21-28) Arterial Blood Base Excess 3 mmol/L (-3-3) FiO2 100 White Blood Count 9.1 x10^3/uL (4.0-11.0) Red Blood Count 4.63 x10^6/uL (3.50-5.40) Hemoglobin 13.4 g/dL (12.0-15.5) Hematocrit 40.6 % (36.0-47.0) Mean Corpuscular Volume 88 fL (79-100) Mean Corpuscular Hemoglobin 29 pg (25-35) Mean Corpuscular Hemoglobin Concent 33 g/dL (31-37) Red Cell Distribution Width 14.9 % (11.5-14.5) Platelet Count 178 x10^3/uL (140-400) Sodium Level 142 mmol/L (136-145) Potassium Level 4.3 mmol/L (3.5-5.1) Chloride Level 104 mmol/L (98-107) Carbon Dioxide Level 30 mmol/L (21-32) Anion Gap 8 (6-14) Blood Urea Nitrogen 18 mg/dL (7-20) Creatinine 0.7 mg/dL (0.6-1.0) Estimated GFR (Cockcroft-Gault) 91.3 BUN/Creatinine Ratio 26 (6-20) Glucose Level 87 mg/dL (70-99) Calcium Level 9.2 mg/dL (8.5-10.1) Total Bilirubin 0.7 mg/dL (0.2-1.0) Aspartate Amino Transf (AST/SGOT) 49 U/L (15-37) Alanine Aminotransferase (ALT/SGPT) 28 U/L (14-59) Alkaline Phosphatase 83 U/L (46-116) Total Protein 7.0 g/dL (6.4-8.2) Albumin 2.9 g/dL (3.4-5.0) Albumin/Globulin Ratio 0.7 (1.0-1.7) Medications Active Scripts Medications Dose Route/Sig Max Daily Dose Days Date Category Dose Instructions Percocet 5-325 Mg Tablet (Oxycodone/Acetaminophen) 1 Each Tablet 1-2 Each PO Q6HRS PRN 11/17/17 Rx pain Promethazine Hcl 25 Mg Tablet 1 Tab PO PRN Q6HRS PRN 11/17/17 Rx Impression . 1. Acute hypoxic respiratory failure secondary to COVID-19 pneumonia leading to ARDS/acute lung injury. 2. Abnormal CT chest with diffuse and extensive bilateral airspace opacities consistent with COVID-19 pneumonia. 3. Underlying morbid obesity. 4. History of bronchial asthma. 5. No evidence of pulmonary embolism. Plan . 1. We will continue with present 100% oxygen via Vapotherm , in addition to NRM. 2. will use intermittently BiPAP. We will watch her respiratory status closely for need for mechanical ventilation. she is comfortable now 3. Continue empiric antibiotics. 4. DVT prophylaxis sc heparin 5. Continue IV dexamethasone. 6. stress ulcer prophy 7. Discussed with RN and RT. Chart reviewed. Monitor closely for need of intubation. Critical care time 30 minutes. AARON SUMMERS MD Mar 31, 2020 11:12
--- NOTE | 2020-03-31 13:48 | NUR ---
Have reviewed and agree with documentation completed by consumer insights intern and made changes as needed/appropriate.
--- NOTE | 2020-03-31 15:59 | NUR ---
SS following up with discharge planning. SS reviewed pt chart and discussed with pt RN. Pt is currently on BIPAP at 100%. COVID19 positive. Pt on IV Rocephin. Not stable. SS will continue to follow for discharge planning.
[2020-03-31] MEDS: FAMOTIDINE 20 MG/2 ML VIAL IVP SCH (20:37)
[2020-04-01] VITALS (24 sets, daily range): BP systolic 87–136; BP diastolic 57–78
[2020-04-01] MEDS: oxyCODONE/APAP 5/325 1 TAB TABLET PO PRN ×4 (02:49→19:09)
[2020-04-01] MEDS: ACETAMINOPHEN 325 MG TABLET. PO PRN (04:38)
[2020-04-01 05:21] LABS: HEMATOCRIT 37.6 % (36.0-47.0); HEMOGLOBIN 12.4 g/dL (12.0-15.5); RED BLOOD COUNT 4.34 x10^6/uL (3.50-5.40); RED CELL DISTRIBUTION WIDTH 14.6 % (11.5-14.5); WHITE BLOOD COUNT 11.7 x10^3/uL (4.0-11.0)
[2020-04-01 05:52] LABS: ALBUMIN 2.5 g/dL (3.4-5.0); ALBUMIN/GLOBULIN RATIO 0.6 (1.0-1.7); CALCIUM 8.5 mg/dL (8.5-10.1); CREATININE 0.7 mg/dL (0.6-1.0); GFR 91.3; POTASSIUM 3.7 mmol/L (3.5-5.1); TOTAL BILIRUBIN 0.8 mg/dL (0.2-1.0); TOTAL PROTEIN 6.6 g/dL (6.4-8.2)
[2020-04-01] MEDS: DEXMEDETOMIDINE 400 MCG in IV NORMAL SALINE 100ML 96 ML IV PRN ×2 (06:15→14:13)
[2020-04-01] MEDS: LACTOBACILLUS RHAMNOSUS GG 1 CAPSULE. PO SCH ×2 (07:28→20:25)
[2020-04-01] MEDS: HEPARIN for SUB-Q USE 5,000 UNIT/ML VIAL. SQ SCH ×2 (07:29→20:29)
[2020-04-01] MEDS: FAMOTIDINE 20 MG/2 ML VIAL IVP SCH ×2 (07:29→20:25)
[2020-04-01] MEDS: cefTRIAXone IV Push 1 GM VIAL. IVP SCH (07:29)
[2020-04-01] MEDS: DEXAMETHASONE SOD PHOS 4 MG/ML VIAL IVP SCH (07:29)
[2020-04-01] MEDS: DOXYCYCLINE HYCLATE 100 MG TABLET PO SCH ×2 (07:29→20:25)
--- NOTE | 2020-04-01 08:07 | PN ---
DATE: 04/01/2020 SUBJECTIVE: The patient is resting, slightly propped up in bed, in no apparent respiratory distress. She is on a BiPAP machine at nighttime, maintaining her oxygen saturation at 97%. She did spike a temperature this morning is 100.1. She also complained of pain and is requiring Percocet on a regular basis according to nursing staff. PHYSICAL EXAMINATION: GENERAL: When I examined her, she was pale, but no jaundice, cyanosis or thyromegaly. No jugular venous distention. No lower limb edema. VITAL SIGNS: Her heart rate was 75, blood pressure 106/63, temperature was 100.1, respiratory rate was 35, and oxygen saturation was 97% on BiPAP machine. HEENT: Showed normocephalic, atraumatic. NECK: Supple. HEART: Normal first and second heart sounds with no gallop, rub or murmur. CHEST: Shows central trachea, equal bilateral chest expansion, air entry, vesicular sounds with crepitation mostly in the right side posteriorly. No rhonchi. ABDOMEN: Distended, soft, nontender. NEUROLOGIC: She is awake, alert, responding appropriately. All her cranial nerves intact. She moves extremities without difficulty. Her intake was 1490, output was 600. LABORATORY DATA: As of this morning, her white cell count was 11,700, hemoglobin 12.4, hematocrit 37.6, MCV 87 and platelet count of 176,000. Her chemistry showed a serum sodium 138, potassium 3.7, chloride 102, bicarbonate 30, anion gap of 6, BUN 16, creatinine 0.7, estimated GFR was 91 mL per minute. Her glucose 102, calcium was 8.5. Total bilirubin, AST, ALT, alkaline phosphatase were normal. Total protein 6.6, albumin was 2.5. ASSESSMENT: 1. COVID-19 pneumonia. 2. Acute hypoxic respiratory failure, requiring BiPAP. She is also on Vapotherm in addition to nonrebreather mask. 3. Bronchial asthma exacerbation. 4. Hyperparathyroidism, status post parathyroidectomy. 5. Nephrolithiasis. PLAN: To continue with IV antibiotic. Continue with dexamethasone. Continue with remdesivir. Continue with DVT prophylaxis. Continue with IV antibiotic. Monitor her closely and she might require intubation and mechanical ventilation. CHARLES HOUSER MD DR: TRINIDAD/jayne JOB#: [id number] / [id number]
--- NOTE | 2020-04-01 11:02 | PDOC ---
PULMONARY PROGRESS NOTES DATE: 04/01/20 TIME: 11:00 Subjective Patient is resting comfortably in 100% BiPAP Low-dose Precedex Fever overnight No Other concerns from nursing Vitals Vital Signs Date Time Temp Pulse Resp B/P (MAP) Pulse Ox O2 Delivery O2 Flow Rate FiO2 04/01/20 10:00 74 40 114/69 (84) 93 BiPAP/CPAP 04/01/20 08:00 100.4 100.4 03/31/20 11:00 40.0 Comments visual exam done due to COVID19 no distress, no paradoxical breathing, no rash, no edema General: Alert, No acute distress Labs Laboratory Tests Test 03/31/20 01:12 03/31/20 06:55 04/01/20 05:00 O2 Saturation 89 % (92-99) Arterial Blood pH 7.41 (7.35-7.45) Arterial Blood pCO2 at Patient Temp 46 mmHg (35-46) Arterial Blood pO2 at Patient Temp 59 mmHg (75-108) Arterial Blood HCO3 29 mmol/L (21-28) Arterial Blood Base Excess 3 mmol/L (-3-3) FiO2 100 White Blood Count 9.1 x10^3/uL (4.0-11.0) 11.7 x10^3/uL (4.0-11.0) Red Blood Count 4.63 x10^6/uL (3.50-5.40) 4.34 x10^6/uL (3.50-5.40) Hemoglobin 13.4 g/dL (12.0-15.5) 12.4 g/dL (12.0-15.5) Hematocrit 40.6 % (36.0-47.0) 37.6 % (36.0-47.0) Mean Corpuscular Volume 88 fL (79-100) 87 fL (79-100) Mean Corpuscular Hemoglobin 29 pg (25-35) 29 pg (25-35) Mean Corpuscular Hemoglobin Concent 33 g/dL (31-37) 33 g/dL (31-37) Red Cell Distribution Width 14.9 % (11.5-14.5) 14.6 % (11.5-14.5) Platelet Count 178 x10^3/uL (140-400) 176 x10^3/uL (140-400) Sodium Level 142 mmol/L (136-145) 138 mmol/L (136-145) Potassium Level 4.3 mmol/L (3.5-5.1) 3.7 mmol/L (3.5-5.1) Chloride Level 104 mmol/L (98-107) 102 mmol/L (98-107) Carbon Dioxide Level 30 mmol/L (21-32) 30 mmol/L (21-32) Anion Gap 8 (6-14) 6 (6-14) Blood Urea Nitrogen 18 mg/dL (7-20) 16 mg/dL (7-20) Creatinine 0.7 mg/dL (0.6-1.0) 0.7 mg/dL (0.6-1.0) Estimated GFR (Cockcroft-Gault) 91.3 91.3 BUN/Creatinine Ratio 26 (6-20) 23 (6-20) Glucose Level 87 mg/dL (70-99) 102 mg/dL (70-99) Calcium Level 9.2 mg/dL (8.5-10.1) 8.5 mg/dL (8.5-10.1) Total Bilirubin 0.7 mg/dL (0.2-1.0) 0.8 mg/dL (0.2-1.0) Aspartate Amino Transf (AST/SGOT) 49 U/L (15-37) 33 U/L (15-37) Alanine Aminotransferase (ALT/SGPT) 28 U/L (14-59) 23 U/L (14-59) Alkaline Phosphatase 83 U/L (46-116) 76 U/L (46-116) Total Protein 7.0 g/dL (6.4-8.2) 6.6 g/dL (6.4-8.2) Albumin 2.9 g/dL (3.4-5.0) 2.5 g/dL (3.4-5.0) Albumin/Globulin Ratio 0.7 (1.0-1.7) 0.6 (1.0-1.7) Laboratory Tests Test 04/01/20 05:00 White Blood Count 11.7 x10^3/uL (4.0-11.0) Red Blood Count 4.34 x10^6/uL (3.50-5.40) Hemoglobin 12.4 g/dL (12.0-15.5) Hematocrit 37.6 % (36.0-47.0) Mean Corpuscular Volume 87 fL (79-100) Mean Corpuscular Hemoglobin 29 pg (25-35) Mean Corpuscular Hemoglobin Concent 33 g/dL (31-37) Red Cell Distribution Width 14.6 % (11.5-14.5) Platelet Count 176 x10^3/uL (140-400) Sodium Level 138 mmol/L (136-145) Potassium Level 3.7 mmol/L (3.5-5.1) Chloride Level 102 mmol/L (98-107) Carbon Dioxide Level 30 mmol/L (21-32) Anion Gap 6 (6-14) Blood Urea Nitrogen 16 mg/dL (7-20) Creatinine 0.7 mg/dL (0.6-1.0) Estimated GFR (Cockcroft-Gault) 91.3 BUN/Creatinine Ratio 23 (6-20) Glucose Level 102 mg/dL (70-99) Calcium Level 8.5 mg/dL (8.5-10.1) Total Bilirubin 0.8 mg/dL (0.2-1.0) Aspartate Amino Transf (AST/SGOT) 33 U/L (15-37) Alanine Aminotransferase (ALT/SGPT) 23 U/L (14-59) Alkaline Phosphatase 76 U/L (46-116) Total Protein 6.6 g/dL (6.4-8.2) Albumin 2.5 g/dL (3.4-5.0) Albumin/Globulin Ratio 0.6 (1.0-1.7) Medications Active Scripts Medications Dose Route/Sig Max Daily Dose Days Date Category Dose Instructions Percocet 5-325 Mg Tablet (Oxycodone/Acetaminophen) 1 Each Tablet 1-2 Each PO Q6HRS PRN 11/17/17 Rx pain Promethazine Hcl 25 Mg Tablet 1 Tab PO PRN Q6HRS PRN 11/17/17 Rx Impression . 1. Acute hypoxic respiratory failure secondary to COVID-19 pneumonia leading to ARDS/acute lung injury. 2. Abnormal CT chest with diffuse and extensive bilateral airspace opacities consistent with COVID-19 pneumonia. 3. Underlying morbid obesity. 4. History of bronchial asthma. 5. No evidence of pulmonary embolism. Plan . We will continue supplemental oxygen to keep oxygen saturations greater than 92%, currently on 100% BiPAP We will watch her respiratory status closely for need for mechanical ventilation. she is comfortable now Continue Precedex as needed for comfort/anxiety Continue empiric antibiotics, currently on doxycycline and Rocephin Continue IV steroids with taper DVT/GI prophylaxis Discussed with RN and RT Discussed with in detail. explained critical illness and severity of COVID. will watch closely for need for intubation Critical care time 30 minutes, no overlap AARON SUMMERS MD Apr 01, 2020 11:02
[2020-04-01] MEDS: AMINO AC 3%/ELECTROLYTE/GLYCER 1,000 ML IV SCH (12:41)
--- NOTE | 2020-04-01 15:59 | NUR ---
SS following up with discharge planning. SS reviewed pt chart and discussed with pt RN. Pt is currently on BIPAP at 100%. Pt on IV Rocephin. COVID19 positive. Not stable. SS will continue to follow for discharge planning.
[2020-04-02] VITALS (12 sets, daily range): BP systolic 82–202; BP diastolic 57–87
[2020-04-02] MEDS: ACETAMINOPHEN 325 MG TABLET. PO PRN (00:20)
[2020-04-02] MEDS: DEXMEDETOMIDINE 400 MCG in IV NORMAL SALINE 100ML 96 ML IV PRN ×3 (00:53→07:25)
[2020-04-02] MEDS: oxyCODONE/APAP 5/325 1 TAB TABLET PO PRN (01:46)
[2020-04-02] MEDS: ALPRAZolam 0.25 MG TABLET PO PRN (03:46)
[2020-04-02] MEDS: AMINO AC 3%/ELECTROLYTE/GLYCER 1,000 ML IV SCH (03:51)
[2020-04-02 05:42] LABS: CREATININE 0.5 mg/dL (0.6-1.0); GFR 134.7; POTASSIUM 3.6 mmol/L (3.5-5.1)
--- NOTE | 2020-04-02 08:29 | RAD ---
EXAM: XR CHEST 1V 04/02/2020 7:45 AM CLINICAL INDICATION: Worsening shortness of breath COMPARISON: None TECHNIQUE: AP upright view of the chest FINDINGS: The heart appears mildly enlarged. There are new extensive basilar-predominant opacities t hroughout both lungs. Probable small pleural effusions. No pneumothorax. No acute osseous abnormality . IMPRESSION: New extensive bilateral airspace opacities could reflect multifocal pneumonia or pulmona ry edema. Probable small pleural effusions. Electronically signed by: Betzaida Shipman MD (04/02/2020 8:27 AM) [id number]
--- NOTE | 2020-04-02 08:31 | PDOC ---
PULMONARY PROGRESS NOTES DATE: 04/02/20 TIME: 08:30 Subjective on 100% BiPAP, rr in 50s sat in 80s she is requesting to be intubated Low-dose Precedex Fever overnight Vitals Vital Signs Date Time Temp Pulse Resp B/P (MAP) Pulse Ox O2 Delivery O2 Flow Rate FiO2 04/02/20 06:00 87 43 117/63 (81) 91 BiPAP/CPAP 04/02/20 04:00 100.3 100.3 Comments visual exam done due to COVID19 obese in distress has accessory muscle use has paradoxical abd motion no rash General: Severe Distress Labs Laboratory Tests Test 04/01/20 05:00 04/02/20 05:00 White Blood Count 11.7 x10^3/uL (4.0-11.0) Red Blood Count 4.34 x10^6/uL (3.50-5.40) Hemoglobin 12.4 g/dL (12.0-15.5) Hematocrit 37.6 % (36.0-47.0) Mean Corpuscular Volume 87 fL (79-100) Mean Corpuscular Hemoglobin 29 pg (25-35) Mean Corpuscular Hemoglobin Concent 33 g/dL (31-37) Red Cell Distribution Width 14.6 % (11.5-14.5) Platelet Count 176 x10^3/uL (140-400) Sodium Level 138 mmol/L (136-145) 136 mmol/L (136-145) Potassium Level 3.7 mmol/L (3.5-5.1) 3.6 mmol/L (3.5-5.1) Chloride Level 102 mmol/L (98-107) 100 mmol/L (98-107) Carbon Dioxide Level 30 mmol/L (21-32) 28 mmol/L (21-32) Anion Gap 6 (6-14) 8 (6-14) Blood Urea Nitrogen 16 mg/dL (7-20) 15 mg/dL (7-20) Creatinine 0.7 mg/dL (0.6-1.0) 0.5 mg/dL (0.6-1.0) Estimated GFR (Cockcroft-Gault) 91.3 134.7 BUN/Creatinine Ratio 23 (6-20) Glucose Level 102 mg/dL (70-99) 113 mg/dL (70-99) Calcium Level 8.5 mg/dL (8.5-10.1) 9.0 mg/dL (8.5-10.1) Total Bilirubin 0.8 mg/dL (0.2-1.0) Aspartate Amino Transf (AST/SGOT) 33 U/L (15-37) Alanine Aminotransferase (ALT/SGPT) 23 U/L (14-59) Alkaline Phosphatase 76 U/L (46-116) Total Protein 6.6 g/dL (6.4-8.2) Albumin 2.5 g/dL (3.4-5.0) Albumin/Globulin Ratio 0.6 (1.0-1.7) Laboratory Tests Test 04/02/20 05:00 Sodium Level 136 mmol/L (136-145) Potassium Level 3.6 mmol/L (3.5-5.1) Chloride Level 100 mmol/L (98-107) Carbon Dioxide Level 28 mmol/L (21-32) Anion Gap 8 (6-14) Blood Urea Nitrogen 15 mg/dL (7-20) Creatinine 0.5 mg/dL (0.6-1.0) Estimated GFR (Cockcroft-Gault) 134.7 Glucose Level 113 mg/dL (70-99) Calcium Level 9.0 mg/dL (8.5-10.1) Medications Active Scripts Medications Dose Route/Sig Max Daily Dose Days Date Category Dose Instructions Percocet 5-325 Mg Tablet (Oxycodone/Acetaminophen) 1 Each Tablet 1-2 Each PO Q6HRS PRN 11/17/17 Rx pain Promethazine Hcl 25 Mg Tablet 1 Tab PO PRN Q6HRS PRN 11/17/17 Rx Impression . 1. Acute hypoxic respiratory failure secondary to COVID-19 pneumonia leading to ARDS/acute lung injury. worsening 2. Abnormal CT chest with diffuse and extensive bilateral airspace opacities consistent with COVID-19 pneumonia. 3. Underlying morbid obesity. 4. History of bronchial asthma. 5. No evidence of pulmonary embolism. Plan . on 100% BiPAP, rr in 50s sat in 80s she is requesting to be intubated needs intubation intubated cxr reviewed ett at maggie ett pulled out 3 cm...b lat infilt much much worse fentanyl versed for sedation Continue empiric antibiotics, per id Continue IV steroids with taper DVT/GI prophylaxis Discussed with RN and RT prognosis guarded critically ill Critical care time 30 minutes, no overlap KIMMY REES MD Apr 02, 2020 08:30
[2020-04-02] MEDS ORDERED: MIDAZOLAM HCL/PF 5 MG/5 ML VIAL. ONE (08:35)
[2020-04-02] MEDS ORDERED: SUCCINYLCHOLINE 200 MG/10 ML VIAL. ONE (08:35)
[2020-04-02] MEDS ORDERED: ETOMIDATE 20 MG/10 ML VIAL. IV ONE ×2 (08:35→09:00)
[2020-04-02] MEDS ORDERED: MIDAZOLAM 100mg/100ml NS BAG 100 ML IV PRN (08:45)
[2020-04-02] MEDS ORDERED: MIDAZOLAM HCL/PF 5 MG/5 ML VIAL. IV ONE (09:00)
[2020-04-02] MEDS ORDERED: CHLORHEXIDINE 0.12% 15 ML MOUTHWASH. MM SCH (09:00)
[2020-04-02] MEDS ORDERED: SUCCINYLCHOLINE 200 MG/10 ML VIAL. IV ONE (09:00)
--- NOTE | 2020-04-02 09:30 | RAD ---
EXAMINATION: XR CHEST 1V CLINICAL HISTORY: Endotracheal tube placement. TECHNIQUE: XR CHEST 1V COMPARISON: 04/02/2020 7:34 AM FINDINGS/ IMPRESSION: Interval intubation with endotracheal tube terminating at the maggie, recommend retracting tube appro ximately 2-3 cm for more optimal positioning. Increased hazy opacities in the bilateral lungs with essentially complete opacification of the right lung. No mediastinal shift. Findings discussed with ICU nurse, Marquita, on 04/02/2020 at 9:25 AM. Electronically signed by: Kin Gayle DO (04/02/2020 9:27 AM) DORIS
[2020-04-02] MEDS ORDERED: NOREPINEPHRINE VIAL 8 MG in IV DEXTROSE 5% 250 ML IV PRN (10:15)
--- NOTE | 2020-04-02 11:30 | NUR ---
Patient was increasingly anxious and was experiencing an increased work at breathing. The patient requested to be intubated as she felt she was in to much pain and having to hard of a time breathing. Dr. Daugherty was on the unit and I consulted with her, she visualized the patient and provided orders for intubation. Carito Manuel CRNA intubated at 0914, CXR confirmed placement, and patient struggled to profuse. Please see Code Blue sheet. Parents at beside, Dr. Carpenter pronounced at 1049.
--- NOTE | 2020-04-02 11:32 | PDOC ---
Provider Note Date of Service: DATE: 04/02/20 TIME: 11:29 Provider Note Responded to code blue event She was intubated earlier for hypoxic resp failure with white out lung garcia and had a PEA arrest in the setting of saturation of 50% despite 100% FiO2. Appropriate CPR was initiated. See code sheet for full details. After 30 minutes of CPR and inability to obtain a stable pulse, I spoke to the patient's parents regarding her grim prognosis. After discussion the family wished to stop resuscitation. All staff in agreement as well to stop resuscitation. Primary physician Dr. Ramesh notified. Justifications for Admission Other Justification CARLA RODRÍGUEZ MD Apr 02, 2020 11:32
--- NOTE | 2020-04-02 12:33 | PN ---
DATE: 04/02/2020 SUBJECTIVE: The patient is sitting propped up in bed, on BiPAP machine. She is extremely tachypneic. She is on a BiPAP machine with an FiO2 of 100%, maintaining her oxygen saturation around 89-90%. She is febrile. Temperature is 100.3 PHYSICAL EXAMINATION: GENERAL: When I examined her, she was pale, but no jaundice, cyanosis or thyromegaly. No jugular venous distention. No limb edema. VITAL SIGNS: Her heart rate was 87, blood pressure was 117/63, temperature was 100.3, respiratory rate was 43 and oxygen saturation was 91% on FiO2 of 100%. HEAD, EYES, EARS, NOSE and THROAT: Showed normocephalic, atraumatic. NECK: Supple. HEART: Showed normal first and second heart sounds. No gallop or murmur. CHEST: Shows central trachea. Equal bilateral chest expansion, air entry, vesicular sounds with crepitation mostly on the right side. Posteriorly, I could not appreciate any rhonchi. ABDOMEN: Distended, soft, nontender. NEUROLOGIC: She is awake, alert, responding appropriately. She moves all extremities without difficulty. Nursing staff stated that she is extremely anxious, apparently known to have posttraumatic stress disorder. Her intake over the last 24 hours was 2542, output was 1060. LABORATORY DATA: As of this morning, her serum sodium was 136, potassium 3.6, chloride 100, bicarbonate 28, anion gap of 8, BUN 50, creatinine 0.5. Estimated GFR was 134 mL per minute. Her glucose was 113. Calcium was 9. ASSESSMENT: 1. COVID-19 pneumonia. 2. Acute hypoxic respiratory failure, requiring BiPAP machine. She is also on Vapotherm in addition to a nonrebreather mask. 3. Bronchial asthma exacerbation. 4. Hyperparathyroidism status post parathyroidectomy. 5. Nephrolithiasis. PLAN: The patient is really in severe respiratory distress, markedly tachypneic, borderline hypoxic despite being on FiO2 of 100% on BiPAP machine. My plan is obviously to continue with IV antibiotic. Continue with dexamethasone. Continue with remdesivir. Continue with DVT and GI prophylaxis. I have ordered stat ABGs and a chest x-ray and will decide on further management accordingly. Her arterial blood gases 2 days ago showed a pH of 7.41, pCO2 of 46 and pO2 of 59. Obviously, if she is retaining carbon dioxide and is acidotic, she will probably require intubation. CHARLES HOUSER MD DR: TRINIDAD/jayne JOB#: [id number] / [id number]
== END 2020-04-02 10:49 | DRG 177 ==
LOC: 1 WEST ICU 22:53
PROVIDERS: ADMIT Internal Medicine; ATTEND Internal Medicine
PROC: 0BH17EZ Insertion of Endotracheal Airway into Trachea, Via Natural or Artificial Opening (ICD-10-PCS; principal; 2020-03-30)
PROC: 5A09457 Assistance with Respiratory Ventilation, 24-96 Consecutive Hours, Continuous Positive Airway Pressure (ICD-10-PCS; 2020-03-30)
PROC: XW033E5 Introduction of Remdesivir Anti-infective into Peripheral Vein, Percutaneous Approach, New Technology Group 5 (ICD-10-PCS; 2020-03-30)
DX: U07.1 COVID-19 (principal); J12.89 Other viral pneumonia; J96.01 Acute respiratory failure with hypoxia; J45.901 Unspecified asthma with (acute) exacerbation; Z68.42 Body mass index [BMI] 45.0-49.9, adult; E21.3 Hyperparathyroidism, unspecified; E66.01 Morbid (severe) obesity due to excess calories; E87.6 Hypokalemia; N20.0 Calculus of kidney; Y95 Nosocomial condition; Z87.891 Personal history of nicotine dependence
CPT/HCPCS: 36415; 36600; 71045; 80048; 80053; 82805; 83605; 85007; 85025; 85027; 94002; 94660; 94760; J0330; J0696; J1100; J1644; J1650; J2250; J3010; J3490; G0378